=== PATIENT | female | born 1970 | race Caucasian/White ===

== ENCOUNTER 2020-06-18 17:12 | Outpatient (REF) | payer OTHER, SELFPAY | END 2020-06-18 17:13 | disposition home or self-care (01) | LOC: HO.LAB 17:12 | PROVIDERS: PCP Nurse Practitioner Family; Visit Provider Internal Medicine | DX: Z20.828 Contact with and (suspected) exposure to other viral communicable diseases (principal) | CPT/HCPCS: 87635 ==

== ENCOUNTER 2020-08-26 17:17 | Outpatient (REF) | payer OTHER, SELFPAY ==
--- NOTE | 2020-08-26 17:31 | XR_ITS ---
EXAMINATION: CHEST 2 VIEWS CLINICAL INFORMATION: Chest pain. COMPARISON: November 06, 2019. TECHNIQUE: PA and lateral views of the chest were obtained. FINDINGS: The cardiac silhouette is not enlarged. The mediastinal and hilar contours are unremarkable. There are neither pleural effusions nor pneumothoraces. There are no consolidations. The osseous structures are stable. XR/XR chest 2V IMPRESSION: No evidence for acute disease.
== END 2020-08-26 17:18 | disposition home or self-care (01) ==
LOC: HO.HMGCX 17:17
PROVIDERS: Visit Provider Nurse Practitioner Family
DX: R07.9 Chest pain, unspecified (principal)
CPT/HCPCS: 71046

== ENCOUNTER 2020-08-26 17:51 | Outpatient (REF) | payer OTHER, SELFPAY | END 2020-08-26 17:52 | disposition home or self-care (01) | LOC: HO.LAB 17:51 | PROVIDERS: Visit Provider Nurse Practitioner Family | DX: J32.9 Chronic sinusitis, unspecified (principal); Z20.828 Contact with and (suspected) exposure to other viral communicable diseases; R07.9 Chest pain, unspecified | CPT/HCPCS: 36415; U0003 ==

== ENCOUNTER 2020-08-27 12:54 | Outpatient (REF) | payer OTHER, SELFPAY ==
[2020-08-27 15:44] LABS: Alanine Aminotransferase 28 U/L (0-31); Albumin Level 4.7 g/dL (3.5-5.0); Alkaline Phosphatase 76 U/L (39-117); Anion Gap 20 (12-20); Aspartate Amino Transferase 16 U/L (5-31); Bilirubin Total 0.5 mg/dL (0.0-1.0); Blood Urea Nitrogen 17 mg/dL (9-16); Calcium 9.9 mg/dL (8.4-10.2); Carbon Dioxide 30 mmol/L (22-29); Chloride 102 mmol/L (96-108); Cholesterol 208 mg/dL; Estimated Glomerular Filt Rate > 60; Glucose Random 95 mg/dL (60-115); HDL Cholesterol 54 mg/dL; LDL Cholesterol Calculated 116 mg/dl; Potassium 4.2 mmol/l (3.3-5.1); Sodium 148 mmol/L (135-145); Total Protein 7.6 g/dL (6.5-8.0); Triglycerides 191 mg/dL
[2020-08-27 15:46] LABS: D Dimer < 200 NG/ML
[2020-08-27 16:05] LABS: Troponin-I High Sensitivity < 3.5 ng/L (<3.5-17.0)
== END 2020-08-27 12:55 | disposition home or self-care (01) ==
LOC: HO.LAB 12:54
PROVIDERS: PCP Nurse Practitioner Family; Visit Provider Nurse Practitioner Family
DX: R07.9 Chest pain, unspecified (principal); E78.5 Hyperlipidemia, unspecified; I25.10 Atherosclerotic heart disease of native coronary artery without angina pectoris; R94.31 Abnormal electrocardiogram [ECG] [EKG]; Z98.890 Other specified postprocedural states
CPT/HCPCS: 36415; 80053; 80061; 84484; 85379; 93005

== ENCOUNTER → 2020-09-17 08:03 | Outpatient (BNVA) | payer OTHER, SELFPAY | PROVIDERS: PCP Nurse Practitioner Family; Visit Provider Student in an Organized Health Care Education/Training Program ==

== ENCOUNTER 2020-09-26 08:05 | Outpatient (REF) | payer OTHER, SELFPAY ==
[2020-09-26 08:54] LABS: MANUAL DIFF FLAG NO
[2020-09-26 08:58] LABS: Basophils Absolute Auto 0.1 X10*3/uL (0.0-0.2); Basophils Percent Auto 0.8 % (0-2); Eosinophils Absolute Auto 0.4 X10*3/uL (0.0-0.4); Eosinophils Percent Auto 4.1 % (0-4); Hematocrit 46.3 % (37-47); Hemoglobin 15.3 g/dl (12.0-16.0); Imm Gran Abs Auto 0.02 X10*3/uL (0.00-0.03); Imm Gran Pct Auto 0.2 % (0.0-0.4); Lymphocytes Absolute Auto 3.2 X10*3/uL (1.2-4.9); Lymphocytes Percent Auto 34.3 % (20-40); Mean Corpuscular Hemoglobin 29.4 pg (27.0-33.0); Mean Platelet Volume 9.7 fL (9.4-12.3); Monocytes Absolute Auto 0.7 X10*3/uL (0.1-1.2); Monocytes Percent Auto 7.6 % (2-11); Platelet Count 360 X10*3/uL (160-400); Red Cell Distribution Width 13.2 % (11.0-16.0); White Blood Count 9.4 X10*3/uL (4.8-10.8)
[2020-09-26 09:11] LABS: Glucose Urine UA NEG (NEG); Leukocyte Esterase Urine NEG (NEG); Nitrite Urine NEG (NEG); Specific Gravity - Urine 1.025 (1.005-1.025); Urine Blood NEG (NEG); Urine Ketones NEG (NEG); Urine Protein NEG (NEG-TRACE)
[2020-09-26 09:12] LABS: Appearance Urine HAZY; Color Urine YELLOW
[2020-09-26 09:18] LABS: Alanine Aminotransferase 40 U/L (0-31); Albumin Level 4.4 g/dL (3.5-5.0); Alkaline Phosphatase 64 U/L (39-117); Anion Gap 14 (12-20); Aspartate Amino Transferase 26 U/L (5-31); Bilirubin Total 0.5 mg/dL (0.0-1.0); Blood Urea Nitrogen 18 mg/dL (9-16); C Reactive Protein 0.23 mg/dL (< or = 0.50); Calcium 9.4 mg/dL (8.4-10.2); Carbon Dioxide 29 mmol/L (22-29); Chloride 102 mmol/L (96-108); Cholesterol 161 mg/dL; Estimated Glomerular Filt Rate > 60; Glucose Fasting 108 mg/dL (60-99); HDL Cholesterol 48 mg/dL; LDL Cholesterol Calculated 83 mg/dl; Potassium 3.8 mmol/L (3.3-5.1); Sodium 141 mmol/L (135-145); Total Protein 6.9 g/dL (6.5-8.0); Triglycerides 154 mg/dL
[2020-09-26 09:29] LABS: Bacteria Urine 2+ /LPF; Mucus Urine 1+ /LPF; RBC Urine 0 /HPF (0); Squamous Epithelial Cell Urine 3+ /LPF; WBC Urine 0-2 /HPF (0-4)
[2020-09-26 09:43] LABS: TSH reflex Free T4 2.57 uIU/mL (0.32-4.0); Vitamin D 25-OH Total 27.2 ng/mL (>30)
[2020-09-26 09:44] LABS: Erythrocyte Sedimentation Rate 6 MM/HR (0-20)
[2020-09-27 14:47] LABS: Complement C3 116 mg/dL (83-193)
[2020-09-27 15:37] LABS: Anti DNA DS Antibody 9 IU/mL; SM/Ribonucleoprotein Ab <1.0 NEG AI (<1.0 NEG); Smith Protein <1.0 NEG AI (<1.0 NEG)
== END 2020-09-26 08:06 | disposition home or self-care (01) ==
LOC: HO.LAB 08:05
PROVIDERS: PCP Nurse Practitioner Family; Visit Provider Student in an Organized Health Care Education/Training Program
DX: Z00.00 Encounter for general adult medical examination without abnormal findings (principal); R76.8 Other specified abnormal immunological findings in serum; E55.9 Vitamin D deficiency, unspecified
CPT/HCPCS: 36415; 80053; 80061; 81001; 82306; 84443; 85025; 85652; 86140; 86160; 86225; 86235

== ENCOUNTER → 2020-09-30 14:59 | Outpatient (BNVA) | payer OTHER, SELFPAY | PROVIDERS: PCP Nurse Practitioner Family; Visit Provider Nurse Practitioner Family ==

== ENCOUNTER → 2020-11-13 16:26 | Outpatient (BNVA) | payer OTHER, SELFPAY | PROVIDERS: PCP Nurse Practitioner Family; Visit Provider Student in an Organized Health Care Education/Training Program ==

== ENCOUNTER 2021-01-01 14:53 | Outpatient (REF) | payer OTHER, SELFPAY ==
--- NOTE | ~2021-01-01 | XR_ITS ---
EXAMINATION: BILATERAL HAND X-RAY CLINICAL INFORMATION: Pain COMPARISON: Left wrist x-ray December 2015 TECHNIQUE: 3 views of each hand FINDINGS: Bone alignment is normal. No fracture or dislocation is seen. Joint spaces are normal. Soft tissues are normal. XR/XR hand LT min 3V IMPRESSION: Unremarkable exam.
--- NOTE | ~2021-01-01 | XR_ITS ---
EXAMINATION: BILATERAL HAND X-RAY CLINICAL INFORMATION: Pain COMPARISON: Left wrist x-ray December 2015 TECHNIQUE: 3 views of each hand FINDINGS: Bone alignment is normal. No fracture or dislocation is seen. Joint spaces are normal. Soft tissues are normal. XR/XR hand RT min 3V IMPRESSION: Unremarkable exam.
[2021-01-01 16:52] LABS: Alanine Aminotransferase 37 U/L (0-31); Albumin Level 4.6 g/dL (3.5-5.0); Alkaline Phosphatase 82 U/L (39-117); Anion Gap 15 (12-20); Aspartate Amino Transferase 20 U/L (5-31); Bilirubin Total 0.3 mg/dL (0.0-1.0); Blood Urea Nitrogen 14 mg/dL (9-16); Calcium 9.7 mg/dL (8.4-10.2); Carbon Dioxide 31 mmol/L (22-29); Chloride 96 mmol/L (96-108); Estimated Glomerular Filt Rate > 60; Glucose Random 70 mg/dL (60-115); Magnesium 2.1 mg/dL (1.6-2.6); Potassium 3.4 mmol/L (3.3-5.1); Sodium 139 mmol/L (135-145); Total Protein 7.4 g/dL (6.5-8.0)
[2021-01-01 17:13] LABS: TSH reflex Free T4 1.49 uIU/mL (0.32-4.0)
[2021-01-01 17:25] LABS: Folate 10.7 ng/mL (> or = 4.0); Vitamin B12 466 pg/mL (200-900)
== END 2021-01-01 14:54 | disposition home or self-care (01) ==
LOC: HO.HMGCX 14:53
PROVIDERS: PCP Nurse Practitioner Family; Visit Provider Student in an Organized Health Care Education/Training Program
DX: M25.50 Pain in unspecified joint (principal); R76.8 Other specified abnormal immunological findings in serum; R20.0 Anesthesia of skin; R20.2 Paresthesia of skin
CPT/HCPCS: 36415; 73130; 80053; 82607; 82746; 83735; 84443

== ENCOUNTER 2021-01-03 08:04 | Outpatient (REF) | payer OTHER, SELFPAY ==
[2021-01-03 11:13] LABS: MANUAL DIFF FLAG NO
[2021-01-03 11:23] LABS: Basophils Absolute Auto 0.1 X10*3/uL (0.0-0.2); Basophils Percent Auto 0.9 % (0-2); Eosinophils Absolute Auto 0.3 X10*3/uL (0.0-0.4); Eosinophils Percent Auto 3.2 % (0-4); Hematocrit 44.9 % (37-47); Imm Gran Abs Auto 0.04 X10*3/uL (0.00-0.03); Imm Gran Pct Auto 0.4 % (0.0-0.4); Lymphocytes Absolute Auto 3.1 X10*3/uL (1.2-4.9); Lymphocytes Percent Auto 31.8 % (20-40); Mean Corpuscular HGB Conc 33.4 g/dl (31.0-35.0); Mean Corpuscular Hemoglobin 30.1 pg (27.0-33.0); Mean Corpuscular Volume 90.2 fL (80-98); Monocytes Absolute Auto 0.8 X10*3/uL (0.1-1.2); Monocytes Percent Auto 7.7 % (2-11); Neutrophils Absolute Auto 5.5 X10*3/uL (2.0-8.3); Platelet Count 369 X10*3/uL (160-400); Red Blood Count 4.98 X10*6/uL (4.20-5.50); Red Cell Distribution Width 13.1 % (11.0-16.0); White Blood Count 9.8 X10*3/uL (4.8-10.8)
[2021-01-03 12:15] LABS: Alanine Aminotransferase 38 U/L (0-31); Albumin Level 4.3 g/dL (3.5-5.0); Alkaline Phosphatase 75 U/L (39-117); Anion Gap 15 (12-20); Aspartate Amino Transferase 24 U/L (5-31); Bilirubin Total 0.6 mg/dL (0.0-1.0); Blood Urea Nitrogen 19 mg/dL (9-16); Calcium 9.7 mg/dL (8.4-10.2); Carbon Dioxide 30 mmol/L (22-29); Chloride 100 mmol/L (96-108); Estimated Glomerular Filt Rate > 60; Glucose Random 112 mg/dL (60-115); Iron 132 mcg/dL (30-160); Percent Iron Saturation 34 % (15-50); Potassium 3.7 mmol/L (3.3-5.1); Sodium 141 mmol/L (135-145); Total Iron Binding Capacity 393 mcg/dL (228-428); Total Protein 6.8 g/dL (6.5-8.0); Unsaturated Iron Binding 261 ug/dL
[2021-01-03 12:17] LABS: Ferritin 107 ng/mL (10-250)
== END 2021-01-03 08:05 | disposition home or self-care (01) ==
LOC: HO.HMGCLDS 08:04
PROVIDERS: PCP Nurse Practitioner Family; Visit Provider Nurse Practitioner Family
DX: E61.1 Iron deficiency (principal); R20.0 Anesthesia of skin; R20.2 Paresthesia of skin
CPT/HCPCS: 36415; 80053; 82728; 83540; 85025

== ENCOUNTER 2021-01-09 07:27 | Outpatient (REF) | payer OTHER, SELFPAY | END 2021-01-09 07:28 | disposition home or self-care (01) | LOC: HO.HMGCLDS 07:27 | PROVIDERS: PCP Nurse Practitioner Family; Visit Provider Nurse Practitioner Family | DX: Z13.89 Encounter for screening for other disorder (principal) ==

== ENCOUNTER 2021-01-10 07:59 | Outpatient (REF) | payer OTHER, SELFPAY ==
[2021-01-10 08:48] LABS: Glucose Random 118 mg/dL (60-115)
[2021-01-13 14:52] LABS: Insulin Level Total 34.1 uIU/mL
[2021-01-15 05:02] LABS: Proinsulin 27.9 pmol/L (< OR = 18.8)
[2021-01-22 16:52] LABS: Chlorpropamide None Detected; Glimepiride None Detected; Glipizide None Detected; Glyburide None Detected; Nateglinide None Detected; Pioglitazone None Detected; Repaglinide None Detected; Rosiglitazone None Detected; Tolazamide None Detected; Tolbutamide None Detected
[2021-02-01 11:44] LABS: Beta-Hydroxybutyrate 0.7
== END 2021-01-10 08:00 | disposition home or self-care (01) ==
LOC: HO.LAB 07:59
PROVIDERS: PCP Nurse Practitioner Family; Visit Provider Nurse Practitioner Family
DX: E16.2 Hypoglycemia, unspecified (principal)
CPT/HCPCS: 36415; 80337; 82010; 82947; 83525; 84206; 84681

== ENCOUNTER 2021-01-14 14:41 | Outpatient (REF) | payer OTHER, SELFPAY ==
[2021-01-14 16:48] LABS: Estimated Average Glucose 126 mg/dL
== END 2021-01-14 14:42 | disposition home or self-care (01) ==
LOC: HO.HMGCLDS 14:41
PROVIDERS: PCP Nurse Practitioner Family; Visit Provider Nurse Practitioner Family
DX: E16.2 Hypoglycemia, unspecified (principal)
CPT/HCPCS: 36415; 83036

== ENCOUNTER → 2021-04-14 14:44 | Outpatient (BNVA) | payer OTHER, SELFPAY | PROVIDERS: PCP Nurse Practitioner Family; Visit Provider Internal Medicine Cardiovascular Disease ==

== ENCOUNTER 2021-05-07 07:36 | Outpatient (REF) | payer OTHER, SELFPAY ==
[2021-05-07 11:15] LABS: Appearance Urine HAZY; Color Urine YELLOW; Glucose Urine UA NEG (NEG); Leukocyte Esterase Urine NEG (NEG); Nitrite Urine NEG (NEG); Urine Blood NEG (NEG); Urine Ketones NEG (NEG); Urine Protein NEG (NEG-TRACE)
[2021-05-07 12:40] LABS: Alanine Aminotransferase 23 U/L (0-31); Albumin Level 4.4 g/dL (3.5-5.0); Alkaline Phosphatase 66 U/L (39-117); Anion Gap 16 (12-20); Aspartate Amino Transferase 17 U/L (5-31); Bilirubin Total 0.8 mg/dL (0.0-1.0); Blood Urea Nitrogen 16 mg/dL (9-16); Calcium 9.7 mg/dL (8.4-10.2); Carbon Dioxide 27 mmol/L (22-29); Chloride 101 mmol/L (96-108); Cholesterol 157 mg/dL; Estimated Glomerular Filt Rate > 60; Glucose Fasting 115 mg/dL (60-99); HDL Cholesterol 46 mg/dL; LDL Cholesterol Calculated 75 mg/dl; Potassium 3.8 mmol/L (3.3-5.1); Sodium 140 mmol/L (135-145); Total Protein 6.9 g/dL (6.5-8.0); Triglycerides 180 mg/dL
[2021-05-07 14:54] LABS: TSH reflex Free T4 2.07 uIU/mL (0.32-4.0)
[2021-05-08 13:36] LABS: CRP High Sensitivity 3.2 mg/L
[2021-05-15 21:32] LABS: Insulin Auto Antibody <0.4 U/mL (<0.4)
== END 2021-05-07 07:37 | disposition home or self-care (01) ==
LOC: HO.HMGCLDS 07:36
PROVIDERS: PCP Nurse Practitioner Family; Visit Provider Internal Medicine Cardiovascular Disease
DX: I25.10 Atherosclerotic heart disease of native coronary artery without angina pectoris (principal); E16.2 Hypoglycemia, unspecified; E78.5 Hyperlipidemia, unspecified
CPT/HCPCS: 36415; 80053; 80061; 81003; 84443; 86141; 86337

== ENCOUNTER → 2021-05-08 14:52 | Outpatient (BNVA) | payer OTHER, SELFPAY | PROVIDERS: PCP Nurse Practitioner Family; Visit Provider Internal Medicine ==

== ENCOUNTER 2021-08-15 08:47 | Outpatient (REF) | payer OTHER, SELFPAY ==
[2021-08-15 09:41] LABS: Anion Gap 11 (12-20); Blood Urea Nitrogen 16 mg/dL (9-16); Calcium 9.7 mg/dL (8.4-10.2); Carbon Dioxide 29 mmol/L (22-29); Chloride 101 mmol/L (96-108); Cholesterol 146 mg/dL; Estimated Glomerular Filt Rate > 60; Glucose Fasting 109 mg/dL (60-99); HDL Cholesterol 46 mg/dL; LDL Cholesterol Calculated 75 mg/dl; Potassium 3.4 mmol/L (3.3-5.1); Sodium 138 mmol/L (135-145); Triglycerides 126 mg/dL
[2021-08-15 10:02] LABS: Free T4 (Free Thyroxine) 0.94 ng/dL (0.71-1.85); Thyroid Stimulating Hormone 2.09 uIU/mL (0.32-4.0)
[2021-08-18 17:56] LABS: C Peptide 2.29 ng/mL (0.80-3.85)
[2021-08-18 20:51] LABS: Adrenocorticotropic Hormone 8 pg/mL (6-50)
[2021-08-18 21:51] LABS: DHEA Sulfate 56 mcg/dL (19-231)
[2021-08-19 01:31] LABS: CRP High Sensitivity 3.2 mg/L
[2021-08-22 09:32] LABS: Chlorpropamide None Detected; Glimepiride None Detected; Glipizide None Detected; Glyburide None Detected; Nateglinide None Detected; Pioglitazone None Detected; Repaglinide None Detected; Rosiglitazone None Detected; Tolazamide None Detected; Tolbutamide None Detected
[2021-08-23 00:12] LABS: Beta-Hydroxybutyrate 0.06 mmol/L
[2021-08-28 02:26] LABS: Insulin Auto Antibody <0.4 U/mL (<0.4)
[2021-08-28 04:46] LABS: Proinsulin 14.9 pmol/L (< OR = 18.8)
== END 2021-08-15 08:48 | disposition home or self-care (01) ==
LOC: HO.LAB 08:47
PROVIDERS: Internal Medicine Cardiovascular Disease; Visit Provider Internal Medicine
DX: E16.2 Hypoglycemia, unspecified (principal); I25.10 Atherosclerotic heart disease of native coronary artery without angina pectoris
CPT/HCPCS: 36415; 80048; 80061; 80337; 82010; 82024; 82627; 84206; 84439; 84443; 84681; 86141; 86337

== ENCOUNTER 2021-10-01 12:25 | Outpatient (REF) | payer OTHER, SELFPAY ==
--- NOTE | ~2021-10-01 | XR_ITS ---
EXAMINATION: XR CHEST CLINICAL INFORMATION: U07.1 - COVID-19 satisfactory. Diagnostic view is provided as diagnostic 09/30/2021 COMPARISON: Chest radiographs 08/26/2020, 11/06/2019, CT abdomen 05/25/2019 TECHNIQUE: 2 views of the chest were obtained. FINDINGS: The lungs are clear. The vascularity is normal. There is no airspace consolidation or groundglass opacity or effusion. The heart is within normal size. Tapering at the bilateral cardiophrenic angles is consistent with areolar tissue, similar to prior studies. The hilar and mediastinal contours and bony structures are unremarkable. XR/XR chest 2V IMPRESSION: Unremarkable examination.
[2021-10-01 13:46] LABS: MANUAL DIFF FLAG NO
[2021-10-01 13:59] LABS: Basophils Absolute Auto 0.1 X10*3/uL (0.0-0.2); Basophils Percent Auto 0.7 % (0-2); Eosinophils Absolute Auto 0.2 X10*3/uL (0.0-0.4); Eosinophils Percent Auto 1.1 % (0-4); Hematocrit 45.4 % (37.0-47.0); Hemoglobin 15.2 g/dl (12.0-16.0); Imm Gran Abs Auto 0.08 X10*3/uL (0.00-0.03); Imm Gran Pct Auto 0.6 % (0.0-0.4); Lymphocytes Absolute Auto 3.8 X10*3/uL (1.2-4.9); Lymphocytes Percent Auto 27.1 % (20-40); Mean Corpuscular HGB Conc 33.5 g/dl (31.0-35.0); Mean Corpuscular Hemoglobin 29.8 pg (27.0-33.0); Mean Platelet Volume 10.1 fL (9.4-12.3); Monocytes Absolute Auto 0.9 X10*3/uL (0.1-1.2); Monocytes Percent Auto 6.3 % (2-11); Neutrophils Absolute Auto 8.9 x10*3/uL (2.0-8.3); Neutrophils Percent Auto 64.2 % (45-73); Platelet Count 379 X10*3/uL (160-400); Red Cell Distribution Width 12.9 % (11.0-16.0); White Blood Count 13.8 X10*3/uL (4.8-10.8)
[2021-10-01 14:01] LABS: D Dimer High Sensitivity < 150 NG/ML
[2021-10-01 14:42] LABS: Alanine Aminotransferase 67 U/L (0-31); Albumin Level 4.5 g/dL (3.5-5.0); Alkaline Phosphatase 96 U/L (39-117); Anion Gap 13 (12-20); Aspartate Amino Transferase 33 U/L (5-31); Bilirubin Total 0.5 mg/dL (0.0-1.0); Carbon Dioxide 31 mmol/L (22-29); Chloride 99 mmol/L (96-108); Estimated Glomerular Filt Rate > 60; Glucose Random 115 mg/dL (60-115); Potassium 3.6 mmol/L (3.3-5.1); Sodium 139 mmol/L (135-145); Total Protein 7.5 g/dL (6.5-8.0)
[2021-10-01 15:24] LABS: Blood Urea Nitrogen 16 mg/dL (9-16); Calcium 10.1 mg/dL (8.4-10.2)
== END 2021-10-01 12:26 | disposition home or self-care (01) ==
LOC: HO.HMGCLDS 12:25
PROVIDERS: Visit Provider Nurse Practitioner Family
DX: U07.1 COVID-19 (principal); R79.82 Elevated C-reactive protein (CRP); E78.5 Hyperlipidemia, unspecified
CPT/HCPCS: 36415; 71046; 80053; 85025; 85379

== ENCOUNTER 2021-11-18 07:52 | Outpatient (REF) | payer OTHER, SELFPAY ==
[2021-11-18 12:07] LABS: Alanine Aminotransferase 38 U/L (0-31); Albumin Level 4.4 g/dL (3.5-5.0); Alkaline Phosphatase 71 U/L (39-117); Aspartate Amino Transferase 24 U/L (5-31); Bilirubin Direct 0.2 mg/dL (0.0-0.5); Bilirubin Total 0.4 mg/dL (0.0-1.0); Cholesterol 230 mg/dL; HDL Cholesterol 55 mg/dL; LDL Cholesterol Calculated 136 mg/dl; Total Protein 7.1 g/dL (6.5-8.0); Triglycerides 196 mg/dL
[2021-11-18 12:11] LABS: HBS Num1 1.32 mIU/mL (0-7.99); HBc Num1 0.07 S/CO (0.00-0.79); HBsAGNum1 0.19 S/CO (0.00-0.99); Hepatitis B Core Antibody Nonreactive (Nonreactive); Hepatitis B Surface Antigen Negative (Negative); ~Hepatitis B Surface Antibody NONREACTIVE (Nonreactive)
[2021-11-18 12:13] LABS: ~HepC Num1 0.11 S/CO (0.00-0.79); ~Hepatitis C Antibody Nonreactive (Nonreactive)
[2021-11-18 17:59] LABS: Urine Cytology See Pathology rpt
[2021-11-18 18:30] LABS: Appearance Urine CLEAR; Color Urine YELLOW; Glucose Urine UA NEG (NEG); Leukocyte Esterase Urine NEG (NEG); Nitrite Urine NEG (NEG); PH 7.5 (5.0-8.0); Urine Blood NEG (NEG); Urine Ketones NEG (NEG); Urine Protein NEG (NEG-TRACE)
[2021-11-18 19:03] LABS: Bacteria Urine TRACE /LPF; Mucus Urine 1+ /LPF; RBC Urine 0-2 /HPF (0); Squamous Epithelial Cell Urine 2+ /LPF; WBC Urine 0-2 /HPF (0-4)
[2021-11-19 05:08] LABS: Hepatitis A Antibody IgM 0.18 Index (0-0.79); ~Hepatitis A Antibody IgM Nonreactive (Nonreactive)
[2021-11-21 11:32] LABS: CRP High Sensitivity 2.9 mg/L
== END 2021-11-18 07:53 | disposition home or self-care (01) ==
LOC: HO.HMGCLDS 07:52
PROVIDERS: PCP Nurse Practitioner Family; Visit Provider Internal Medicine Cardiovascular Disease
DX: R74.8 Abnormal levels of other serum enzymes (principal); R79.82 Elevated C-reactive protein (CRP); E78.5 Hyperlipidemia, unspecified
CPT/HCPCS: 36415; 80061; 80076; 81001; 86141; 86704; 86706; 86709; 86803; 87086; 87340; 88112

== ENCOUNTER 2021-12-12 09:09 | Outpatient (REF) | payer OTHER, SELFPAY ==
--- NOTE | ~2021-12-12 | US_ITS ---
EXAMINATION: US ABDOMEN COMPLETE CLINICAL INFORMATION: Abnormal levels of other serum enzymes. COMPARISON: CT abdomen and pelvis 05/25/2019. Renal ultrasound 03/08/2015. Ultrasound abdomen 05/30/2012. TECHNIQUE: Real-time imaging of the abdominal viscera. FINDINGS: PANCREAS: The head and the body of the pancreas is homogeneous in echotexture. The tail is obscured by overlying gas. ABDOMINAL AORTA: The proximal, mid, and distal segments are normal in caliber. INFERIOR VENA CAVA: Visualized portions are normal. LIVER: The liver is normal in size. The liver contour is normal. There is an increase in echogenicity. No focal hepatic lesion. Hypodensity seen in the left hepatic lobe is not visualized by ultrasound. There is no intrahepatic biliary duct dilatation seen. GALLBLADDER: Surgically absent. COMMON BILE DUCT: Common bile duct is suboptimally visualized, however, it measures 0.4 cm in diameter. RIGHT KIDNEY: Normal. No hydronephrosis. No renal calculi or focal parenchymal lesions. The kidney measures 11.8 cm in maximum dimension. LEFT KIDNEY: Normal. No hydronephrosis. No renal calculi or focal parenchymal lesions. The kidney measures 13.2 cm in maximum dimension. SPLEEN: Normal. The spleen measures 10.9 cm in maximum dimension. FREE FLUID: None. US/US abdomen complete IMPRESSION: Unremarkable ultrasound abdomen exam. Hypodensity seen in the left hepatic lobe on CT 05/25/2019 is not visualized on ultrasound. Cholecystectomy.
== END 2021-12-12 09:10 | disposition home or self-care (01) ==
LOC: HO.US 09:09
PROVIDERS: Visit Provider Nurse Practitioner Family
DX: R74.8 Abnormal levels of other serum enzymes (principal)
CPT/HCPCS: 76700

== ENCOUNTER 2022-01-12 07:37 | Outpatient (REF) | payer OTHER, SELFPAY ==
[2022-01-12 08:44] LABS: Glucose Fasting 129 mg/dL (60-99)
[2022-01-12 08:47] LABS: Alanine Aminotransferase 25 U/L (0-31); Alkaline Phosphatase 63 U/L (39-117); Anion Gap 12 (12-20); Aspartate Amino Transferase 17 U/L (5-31); Bilirubin Total 0.4 mg/dL (0.0-1.0); Blood Urea Nitrogen 15 mg/dL (9-16); Calcium 9.6 mg/dL (8.4-10.2); Carbon Dioxide 29 mmol/L (22-29); Chloride 102 mmol/L (96-108); Estimated Glomerular Filt Rate > 60; Glucose Random 128 mg/dL (60-115); Potassium 3.6 mmol/L (3.3-5.1); Sodium 139 mmol/L (135-145); Total Protein 6.5 g/dL (6.5-8.0)
[2022-01-12 09:59] LABS: Glucose 1 Hour 228 mg/dL
[2022-01-12 10:38] LABS: Urine Cytology See Pathology rpt
[2022-01-12 10:46] LABS: Appearance Urine CLEAR; Color Urine YELLOW; Glucose Urine UA NEG (NEG); Leukocyte Esterase Urine NEG (NEG); Nitrite Urine NEG (NEG); Urine Blood NEG (NEG); Urine Ketones NEG (NEG); Urine Protein NEG (NEG-TRACE)
[2022-01-12 11:25] LABS: Glucose 2 Hour 175 mg/dL
[2022-01-12 11:34] LABS: RBC Urine 0 /HPF (0); Squamous Epithelial Cell Urine 1+ /LPF; WBC Urine 0-2 /HPF (0-4)
[2022-01-12 11:35] LABS: Bacteria Urine TRACE /LPF
[2022-01-12 12:21] LABS: Glucose 3 Hour 74 mg/dL
[2022-01-12 12:37] LABS: Glucose 4 Hour 69 mg/dL
== END 2022-01-12 07:38 | disposition home or self-care (01) ==
LOC: HO.LAB 07:37
PROVIDERS: Absent Provider Nurse Practitioner Family; PCP Nurse Practitioner Family; Visit Provider Internal Medicine
DX: R31.29 Other microscopic hematuria (principal); R60.9 Edema, unspecified; E16.2 Hypoglycemia, unspecified
CPT/HCPCS: 36415; 80053; 81001; 82952; 87086; 88112

== ENCOUNTER 2022-03-19 07:22 | Outpatient (REF) | payer OTHER, SELFPAY ==
[2022-03-19 07:48] LABS: MANUAL DIFF FLAG NO
[2022-03-19 07:51] LABS: Basophils Absolute Auto 0.1 X10*3/uL (0.0-0.2); Basophils Percent Auto 0.8 % (0-2); Eosinophils Absolute Auto 0.3 X10*3/uL (0.0-0.4); Eosinophils Percent Auto 2.2 % (0-4); Hematocrit 45.4 % (37.0-47.0); Hemoglobin 15.3 g/dl (12.0-16.0); Imm Gran Abs Auto 0.07 X10*3/uL (0.00-0.03); Imm Gran Pct Auto 0.6 % (0.0-0.4); Lymphocytes Absolute Auto 3.9 X10*3/uL (1.2-4.9); Lymphocytes Percent Auto 31.8 % (20-40); Mean Corpuscular HGB Conc 33.7 g/dl (31.0-35.0); Mean Corpuscular Hemoglobin 29.1 pg (27.0-33.0); Mean Corpuscular Volume 86.5 fL (80.0-98.0); Mean Platelet Volume 9.4 fL (9.4-12.3); Monocytes Absolute Auto 1.1 X10*3/uL (0.1-1.2); Monocytes Percent Auto 8.9 % (2-11); Neutrophils Absolute Auto 6.9 x10*3/uL (2.0-8.3); Neutrophils Percent Auto 55.7 % (45-73); Platelet Count 371 X10*3/uL (160-400); Red Blood Count 5.25 X10*6/uL (4.20-5.50); Red Cell Distribution Width 13.5 % (11.0-16.0); White Blood Count 12.3 X10*3/uL (4.8-10.8)
[2022-03-19 08:05] LABS: Glucose Fasting 120 mg/dL (60-99)
[2022-03-19 08:11] LABS: Appearance Urine CLEAR; Color Urine YELLOW; Glucose Urine UA NEG (NEG); Leukocyte Esterase Urine NEG (NEG); Nitrite Urine NEG (NEG); Specific Gravity - Urine 1.025 (1.005-1.025); Urine Blood NEG (NEG); Urine Ketones NEG (NEG); Urine Protein NEG (NEG-TRACE)
[2022-03-19 08:14] LABS: Alanine Aminotransferase 40 U/L (0-31); Albumin Level 4.6 g/dL (3.5-5.0); Alkaline Phosphatase 80 U/L (39-117); Anion Gap 14 (12-20); Aspartate Amino Transferase 26 U/L (5-31); Bilirubin Total 0.7 mg/dL (0.0-1.0); Blood Urea Nitrogen 14 mg/dL (9-16); Calcium 9.9 mg/dL (8.4-10.2); Carbon Dioxide 29 mmol/L (22-29); Chloride 99 mmol/L (96-108); Cholesterol 172 mg/dL; Estimated Glomerular Filt Rate > 60; Glucose Fasting 120 mg/dL (60-99); HDL Cholesterol 52 mg/dL; LDL Cholesterol Calculated 80 mg/dl; Potassium 3.9 mmol/L (3.3-5.1); Sodium 138 mmol/L (135-145); Total Protein 7.3 g/dL (6.5-8.0); Triglycerides 200 mg/dL
[2022-03-19 08:34] LABS: TSH reflex Free T4 3.73 uIU/mL (0.32-4.0)
[2022-03-19 08:45] LABS: Estimated Average Glucose 131 mg/dL; Hemoglobin A1c % 6.2 %
[2022-03-19 09:17] LABS: Glucose 1 Hour 261 mg/dL
[2022-03-19 10:22] LABS: Glucose 2 Hour 264 mg/dL
[2022-03-19 10:34] LABS: Cortisol Random 18.2 ug/dL
[2022-03-23 21:26] LABS: Adrenocorticotropic Hormone 17 pg/mL (6-50)
== END 2022-03-19 07:23 | disposition home or self-care (01) ==
LOC: HO.LAB 07:22
PROVIDERS: Absent Provider Internal Medicine; PCP Nurse Practitioner Family; Visit Provider Nurse Practitioner Family
DX: Z00.00 Encounter for general adult medical examination without abnormal findings (principal); E11.9 Type 2 diabetes mellitus without complications; E16.2 Hypoglycemia, unspecified; E78.5 Hyperlipidemia, unspecified
CPT/HCPCS: 36415; 80053; 80061; 81003; 82024; 82533; 83036; 84443; 85025

== ENCOUNTER 2022-04-01 13:20 | Outpatient (REF) | payer OTHER, SELFPAY ==
[2022-04-01 17:46] LABS: Alanine Aminotransferase 44 U/L (0-31); Albumin Level 4.5 g/dL (3.5-5.0); Alkaline Phosphatase 72 U/L (39-117); Anion Gap 15 (12-20); Aspartate Amino Transferase 27 U/L (5-31); Bilirubin Total 0.4 mg/dL (0.0-1.0); Blood Urea Nitrogen 14 mg/dL (9-16); Calcium 10.1 mg/dL (8.4-10.2); Carbon Dioxide 28 mmol/L (22-29); Chloride 100 mmol/L (96-108); Estimated Glomerular Filt Rate > 60; Glucose Random 105 mg/dL (60-115); Potassium 4.1 mmol/L (3.3-5.1); Sodium 139 mmol/L (135-145); Total Protein 7.3 g/dL (6.5-8.0)
== END 2022-04-01 13:21 | disposition home or self-care (01) ==
LOC: HO.HMGCLDS 13:20
PROVIDERS: PCP Nurse Practitioner Family; Visit Provider Internal Medicine
DX: E11.9 Type 2 diabetes mellitus without complications (principal)
CPT/HCPCS: 36415; 80053

== ENCOUNTER 2022-04-28 15:39 | Outpatient (REF) | payer OTHER, SELFPAY ==
[2022-04-28 16:54] LABS: Alanine Aminotransferase 44 U/L (0-31); Albumin Level 4.5 g/dL (3.5-5.0); Alkaline Phosphatase 74 U/L (39-117); Anion Gap 15 (12-20); Aspartate Amino Transferase 23 U/L (5-31); Bilirubin Total 0.3 mg/dL (0.0-1.0); Blood Urea Nitrogen 17 mg/dL (9-16); Calcium 9.9 mg/dL (8.4-10.2); Carbon Dioxide 29 mmol/L (22-29); Chloride 99 mmol/L (96-108); Cholesterol 173 mg/dL; Estimated Glomerular Filt Rate > 60; Glucose Random 97 mg/dL (60-115); HDL Cholesterol 45 mg/dL; LDL Cholesterol Calculated 75 mg/dl; Potassium 3.5 mmol/L (3.3-5.1); Sodium 139 mmol/L (135-145); Total Protein 7.5 g/dL (6.5-8.0); Triglycerides 269 mg/dL
== END 2022-04-28 15:40 | disposition home or self-care (01) ==
LOC: HO.LAB 15:39
PROVIDERS: Absent Provider Internal Medicine; PCP Nurse Practitioner Family; Visit Provider Nurse Practitioner Family
DX: R31.9 Hematuria, unspecified (principal)
CPT/HCPCS: 36415; 80053; 80061; 87086; 87088; 87186

== ENCOUNTER 2022-05-05 07:25 | Outpatient (REF) | payer OTHER, SELFPAY ==
[2022-05-05 11:44] LABS: Appearance Urine Clear; Color Urine Yellow; Glucose Urine UA Negative (Negative); Leukocyte Esterase Urine Negative (Negative); Nitrite Urine Negative (Negative); Urine Blood Negative (Negative); Urine Ketones Negative (Negative); Urine Protein Negative (Neg-Trace)
[2022-05-05 12:52] LABS: Bacteria Urine Trace (None Seen); Hyaline Casts Urine 0-2 /LPF (0-2); RBC Urine 0-2 /HPF (0-2); WBC Urine 0-5 /HPF (0-5)
== END 2022-05-05 07:26 | disposition home or self-care (01) ==
LOC: HO.HMGCLDS 07:25
PROVIDERS: PCP Nurse Practitioner Family; Visit Provider Nurse Practitioner Family
DX: R31.9 Hematuria, unspecified (principal); R10.9 Unspecified abdominal pain
CPT/HCPCS: 81001; 87086

== ENCOUNTER 2022-05-06 13:23 | Outpatient (REF) | payer OTHER, SELFPAY ==
--- NOTE | ~2022-05-06 | US_ITS ---
EXAMINATION: US RETROPERITONEAL COMPLETE (RENAL) CLINICAL INFORMATION: Hematuria. COMPARISON: Previous abdominal ultrasound November [address] of the abdomen and pelvis May 2019 TECHNIQUE: Real-time imaging of the kidneys and bladder. FINDINGS: RIGHT KIDNEY: 11 x 5 6 x 5.7 cm (SAG x AP x TRV). The kidney is normal in size, contour, and echogenicity. Renal cortical thickness is normal. There is very mild right hydronephrosis. No calculi or focal parenchymal lesions. LEFT KIDNEY: 13.1 x 5.6 x 5 cm (SAG x AP x TRV). The kidney is normal in size, contour, and echogenicity. Renal cortical thickness is normal. No calculi or focal parenchymal lesions. No hydronephrosis. BLADDER: Well distended and normal. Bilateral ureteral jets are demonstrated. Prevoid bladder volume is 669 mL. Postvoid bladder volume is 258 mL. US/US retroperitoneal comp IMPRESSION: Mild right hydronephrosis. Normal left kidney. Large 258 mL post void bladder residual..
[2022-05-06 16:36] LABS: MANUAL DIFF FLAG NO
[2022-05-06 16:43] LABS: Basophils Absolute Auto 0.1 X10*3/uL (0.0-0.2); Basophils Percent Auto 0.9 % (0-2); Eosinophils Absolute Auto 0.2 X10*3/uL (0.0-0.4); Eosinophils Percent Auto 1.9 % (0-4); Hematocrit 45.4 % (37.0-47.0); Hemoglobin 15.2 g/dl (12.0-16.0); Imm Gran Abs Auto 0.06 X10*3/uL (0.00-0.03); Imm Gran Pct Auto 0.5 % (0.0-0.4); Lymphocytes Absolute Auto 4.1 X10*3/uL (1.2-4.9); Lymphocytes Percent Auto 31.9 % (20-40); Mean Corpuscular HGB Conc 33.5 g/dl (31.0-35.0); Mean Corpuscular Hemoglobin 29.3 pg (27.0-33.0); Mean Corpuscular Volume 87.5 fL (80.0-98.0); Mean Platelet Volume 10.3 fL (9.4-12.3); Monocytes Percent Auto 8.1 % (2-11); Neutrophils Absolute Auto 7.3 x10*3/uL (2.0-8.3); Neutrophils Percent Auto 56.7 % (45-73); Platelet Count 385 X10*3/uL (160-400); Red Blood Count 5.19 X10*6/uL (4.20-5.50); Red Cell Distribution Width 12.9 % (11.0-16.0); White Blood Count 12.8 X10*3/uL (4.8-10.8)
[2022-05-06 17:01] LABS: Alanine Aminotransferase 35 U/L (0-31); Albumin Level 4.5 g/dL (3.5-5.0); Alkaline Phosphatase 76 U/L (39-117); Anion Gap 16 (12-20); Aspartate Amino Transferase 22 U/L (5-31); Bilirubin Total 0.2 mg/dL (0.0-1.0); Blood Urea Nitrogen 17 mg/dL (9-16); Calcium 10.1 mg/dL (8.4-10.2); Carbon Dioxide 31 mmol/L (22-29); Chloride 94 mmol/L (96-108); Estimated Glomerular Filt Rate > 60; Glucose Random 88 mg/dL (60-115); Potassium 3.3 mmol/L (3.3-5.1); Sodium 138 mmol/L (135-145); Total Protein 7.2 g/dL (6.5-8.0)
== END 2022-05-06 13:24 | disposition home or self-care (01) ==
LOC: HO.HMGCX 13:23
PROVIDERS: PCP Nurse Practitioner Family; Visit Provider Nurse Practitioner Family
DX: R10.9 Unspecified abdominal pain (principal); R31.9 Hematuria, unspecified
CPT/HCPCS: 36415; 76770; 80053; 85025

== ENCOUNTER → 2022-06-22 08:52 | Outpatient (BNVA) | payer OTHER, SELFPAY | PROVIDERS: PCP Nurse Practitioner Family; Visit Provider Internal Medicine | DX: E11.9 Type 2 diabetes mellitus without complications (principal); I10 Essential (primary) hypertension; E78.5 Hyperlipidemia, unspecified; Z90.49 Acquired absence of other specified parts of digestive tract; Z98.890 Other specified postprocedural states | CPT/HCPCS: 82947; 83036 ==

== ENCOUNTER 2022-07-01 07:38 | Outpatient (REF) | payer OTHER, SELFPAY ==
[2022-07-01 08:58] LABS: Cortisol Random < 1.0 ug/dL
[2022-07-03 08:22] LABS: Adrenocorticotropic Hormone 6 pg/mL (6-50)
[2022-07-15 11:07] LABS: Dexamethasone 570 ng/dL
== END 2022-07-01 07:39 | disposition home or self-care (01) ==
LOC: HO.LAB 07:38
PROVIDERS: PCP Nurse Practitioner Family; Visit Provider Internal Medicine
DX: E11.9 Type 2 diabetes mellitus without complications (principal)
CPT/HCPCS: 36415; 80299; 82024; 82533

== ENCOUNTER → 2022-08-04 15:24 | Outpatient (BNVA) | payer OTHER, SELFPAY | PROVIDERS: PCP Nurse Practitioner Family; Visit Provider Internal Medicine Cardiovascular Disease | DX: I25.10 Atherosclerotic heart disease of native coronary artery without angina pectoris (principal); R94.31 Abnormal electrocardiogram [ECG] [EKG]; E11.9 Type 2 diabetes mellitus without complications; E78.5 Hyperlipidemia, unspecified | CPT/HCPCS: 93005 ==

== ENCOUNTER → 2022-08-12 12:59 | Outpatient (REF) | payer OTHER, SELFPAY ==
--- NOTE | 2022-08-12 13:02 | CA_ITS ---
Transthoracic Echocardiogram Patient (Last, First, Middle): Moriah Awan, Gender: Female Date of : 1970 Age: 52 Procedure Date: 08/12/2022 Procedure Type: Transthoracic Echocardiogram Location: OP Height: 162.56 cm Weight: 87.09 kg BSA: 1.92 m2 Heart Rate: 69 bpm BP: 110 / 80 mmHg Social Services Manager: SHAHBAZ Referring MD: Brett Evans MD Revenue Collector: Brett Evans MD Symptoms: R94.31 - Abnormal electrocardiogram [ECG] [EKG] Study Quality: Fair ECG Rhythm: Sinus Conclusions: - 1. Normal LV systolic and diastolic function 2. Cardiac valvular Dopplers within normal limits 3. No gross pericardial effusion Findings Left Ventricle Normal left ventricular size, thickness, and systolic function. The visually estimated ejection fraction is between 55-60%. Spectral Doppler is indicative of a normal filling pattern. Right Ventricle Normal right ventricular cavity size and systolic function. Atria The left atrium is normal in size. Interatrial shunt cannot be excluded. The right atrium is normal in size. Aortic Valve The aortic valve structure and function is likely normal. There is no aortic valve stenosis. There is no aortic valve regurgitation. Mitral Valve There is mild anterior and posterior mitral leaflet thickening. There is no mitral valve regurgitation. There is no mitral valve stenosis. Pulmonic Valve The pulmonic valve was not well visualized. Tricuspid Valve Likely normal tricuspid valve structure and function. Tricuspid regurgitation envelope is inadequate for calculation of right ventricular systolic pressure. Normal right atrial pressure. Great Vessels The aorta was not well visualized. The pulmonary artery was not well visualized. Venous The inferior vena cava is normal in size and collapses greater than 50% with inspiration. Pericardium/Pleural There is no evidence of pericardial effusion. Recommendations, Care & Conclusions Recommend contrast in the future to improve endocardial definition. Measurements 2D Linear Measurements IVSd: 0.85 0.6-0.9/0.6-1.0 cm LVIDd: 4.00 3.9-5.3/4.2-5.9 cm LVIDd Index: 2.08 2.4-3.2/2.2-3.1 cm/m2 LVIDs: 2.64 2.0-3.6 cm LVPWd: 0.92 0.7-1.1 cm LA Diam: 2.90 2.7-3.8/3.0-4.0 cm LAIDs Index: 1.51 1.5-2.3 cm/m2 LV Mass: 133.12 67-162/88-224 g LV Mass Index: 69.33 43-95/49-115 g/m2 LVOT Diam: 1.90 3.0+(-)1.3 cm 2D Systolic Function EF 4C: 60.40 >55% EF 2C: 51.30 >55% EF BiP: 57.10 >55% Mitral Valve MV Pk E: 0.83 MV PK A: 0.77 MV Decel Time: 201.00 E/A: 1.10 E'Lateral: 7.80 E'Medial: 7.10 E/E' Med: 11.60 E/E' Lat: 10.60 PHT: 59.00 MVA PHT: 3.73 Decel Conway: 4.12 Aortic Valve AoV Pk Jeferson: 1.19 AoV Mn Jeferson: 0.82 AoV VTI: 0.22 AoV Pk Grad: 6.00 Aov Mn Grad: 3.00 JEFFERY Cont.VTI: 2.20 LVOT LVOT Pk Jeferson: 0.89 LVOT Mn Jeferson: 0.64 LVOT VTI: 0.17 LVOT Pk Grad: 3.00 LVOT Mn Grad: 2.00 LVOT Diam: 1.90 LVOT Area: 2.84 Diastolic Function MV Pk E: 0.83 MV Pk A: 0.77 E/A: 1.10 E'Medial: 7.10 E/E' Med: 11.60 E' Laterial: 7.80 E/E' Lat: 10.60 Right Ventricle TAPSE (mm): 17.40 TVS' Jeferson: 11.10 Tricuspid Valve RA Press: 3.00 Great Vessels Aorta Sinus of Valsalva: 3.20 2.0-3.5 cm Ao Asc: 2.90 2.1-3.4 cm Pulmonary Valve PV Pk Jeferson: 0.94 Peak PV Grad: 4.00 Updated in Other Vendor System with Status of Final Brett Evans MD electronically signed on 08/13/2022 8:53:56 AM with status of Final
== END ==
LOC: HO.CARD 12:59
PROVIDERS: PCP Nurse Practitioner Family; Visit Provider Internal Medicine Cardiovascular Disease
DX: R94.31 Abnormal electrocardiogram [ECG] [EKG] (principal)
CPT/HCPCS: 93306

== ENCOUNTER 2022-10-10 09:40 | Outpatient (REF) | payer OTHER, SELFPAY ==
[2022-10-10 09:56] LABS: MANUAL DIFF FLAG NO
[2022-10-10 10:39] LABS: Basophils Absolute Auto 0.1 X10*3/uL (0.0-0.2); Basophils Percent Auto 0.9 % (0-2); Eosinophils Absolute Auto 0.3 X10*3/uL (0.0-0.4); Eosinophils Percent Auto 2.4 % (0-4); Hematocrit 49.8 % (37.0-47.0); Hemoglobin 16.3 g/dl (12.0-16.0); Imm Gran Abs Auto 0.03 X10*3/uL (0.00-0.03); Imm Gran Pct Auto 0.3 % (0.0-0.4); Lymphocytes Absolute Auto 3.9 X10*3/uL (1.2-4.9); Mean Corpuscular HGB Conc 32.7 g/dl (31.0-35.0); Mean Corpuscular Hemoglobin 28.4 pg (27.0-33.0); Mean Corpuscular Volume 86.9 fL (80.0-98.0); Monocytes Absolute Auto 0.8 X10*3/uL (0.1-1.2); Monocytes Percent Auto 8.1 % (2-11); Neutrophils Absolute Auto 5.2 x10*3/uL (2.0-8.3); Neutrophils Percent Auto 50.3 % (45-73); Platelet Count 384 X10*3/uL (160-400); Red Blood Count 5.73 X10*6/uL (4.20-5.50); Red Cell Distribution Width 13.4 % (11.0-16.0); White Blood Count 10.3 X10*3/uL (4.8-10.8)
[2022-10-10 11:13] LABS: Appearance Urine Clear; Color Urine Yellow; Glucose Urine UA Negative (Negative); Leukocyte Esterase Urine Negative (Negative); Nitrite Urine Negative (Negative); PH 7.5 (5.0-9.0); Urine Blood Negative (Negative); Urine Ketones Negative (Negative); Urine Protein Negative (Neg-Trace)
[2022-10-10 11:17] LABS: Alanine Aminotransferase 47 U/L (0-31); Albumin Level 4.4 g/dL (3.5-5.0); Alkaline Phosphatase 83 U/L (39-117); Anion Gap 16 (12-20); Aspartate Amino Transferase 31 U/L (5-31); Bilirubin Total 0.8 mg/dL (0.0-1.0); Blood Urea Nitrogen 16 mg/dL (9-16); Calcium 10.1 mg/dL (8.4-10.2); Carbon Dioxide 28 mmol/L (22-29); Chloride 100 mmol/L (96-108); Cholesterol 179 mg/dL; Estimated Glomerular Filt Rate > 60; Glucose Fasting 101 mg/dL (60-99); HDL Cholesterol 52 mg/dL; LDL Cholesterol Calculated 94 mg/dl; Sodium 140 mmol/L (135-145); Total Protein 7.1 g/dL (6.5-8.0); Triglycerides 169 mg/dL
[2022-10-10 11:32] LABS: Vitamin D 25-OH Total 21.9 ng/mL (>30)
[2022-10-10 11:34] LABS: TSH reflex Free T4 2.17 uIU/mL (0.32-4.0)
[2022-10-10 12:42] LABS: Creatinine Urine 174.76 mg/dL; Microalbum/Creatinine Ratio Ur 9.1 ug/mg cr
== END 2022-10-10 09:41 | disposition home or self-care (01) ==
LOC: HO.LAB 09:40
PROVIDERS: Internal Medicine; PCP Nurse Practitioner Family; Visit Provider Nurse Practitioner Family
DX: M79.10 Myalgia, unspecified site (principal); E11.9 Type 2 diabetes mellitus without complications; Z86.39 Personal history of other endocrine, nutritional and metabolic disease
CPT/HCPCS: 36415; 80053; 80061; 81003; 82043; 82306; 82550; 84443; 85025

== ENCOUNTER 2023-01-30 10:31 | Outpatient (REF) | payer OTHER, SELFPAY ==
[2023-01-30 11:15] LABS: MANUAL DIFF FLAG NO
[2023-01-30 11:17] LABS: Basophils Absolute Auto 0.1 X10*3/uL (0.0-0.2); Basophils Percent Auto 0.8 % (0-2); Eosinophils Absolute Auto 0.2 X10*3/uL (0.0-0.4); Eosinophils Percent Auto 2.2 % (0-4); Hematocrit 47.8 % (37.0-47.0); Imm Gran Abs Auto 0.03 X10*3/uL (0.00-0.03); Imm Gran Pct Auto 0.3 % (0.0-0.4); Lymphocytes Absolute Auto 3.4 X10*3/uL (1.2-4.9); Lymphocytes Percent Auto 32.5 % (20-40); Mean Corpuscular HGB Conc 33.5 g/dl (31.0-35.0); Mean Corpuscular Hemoglobin 29.3 pg (27.0-33.0); Mean Corpuscular Volume 87.5 fL (80.0-98.0); Mean Platelet Volume 9.8 fL (9.4-12.3); Monocytes Absolute Auto 0.8 X10*3/uL (0.1-1.2); Monocytes Percent Auto 7.9 % (2-11); Neutrophils Absolute Auto 5.9 x10*3/uL (2.0-8.3); Neutrophils Percent Auto 56.3 % (45-73); Platelet Count 337 X10*3/uL (160-400); Red Blood Count 5.46 X10*6/uL (4.20-5.50); Red Cell Distribution Width 13.6 % (11.0-16.0); White Blood Count 10.5 X10*3/uL (4.8-10.8)
[2023-01-30 11:27] LABS: Estimated Average Glucose 105 mg/dL; Hemoglobin A1C 148.3352 umol/L; Hemoglobin A1c % 5.3 %
[2023-01-30 11:57] LABS: Erythrocyte Sedimentation Rate 3 MM/HR (0-20)
[2023-01-30 12:32] LABS: Alanine Aminotransferase 67 U/L (0-31); Alkaline Phosphatase 75 U/L (39-117); Anion Gap 13 (12-20); Aspartate Amino Transferase 35 U/L (5-31); Bilirubin Total 0.6 mg/dL (0.0-1.0); Blood Urea Nitrogen 20 mg/dL (9-16); Calcium 9.8 mg/dL (8.4-10.2); Carbon Dioxide 29 mmol/L (22-29); Chloride 102 mmol/L (96-108); Cholesterol 132 mg/dL; Estimated Glomerular Filt Rate > 60; Glucose Fasting 94 mg/dL (60-99); HDL Cholesterol 42 mg/dL; LDL Cholesterol Calculated 74 mg/dl; Lipase 29 U/L (8-78); Potassium 3.8 mmol/L (3.3-5.1); Rheumatoid Factor < 13.0 IU/mL (<15.0); Sodium 140 mmol/L (135-145); Total Protein 6.5 g/dL (6.5-8.0); Triglycerides 83 mg/dL
[2023-01-30 12:46] LABS: Vitamin D 25-OH Total 83.2 ng/mL (>30)
[2023-01-30 13:46] LABS: Appearance Urine Clear; Color Urine Yellow; Glucose Urine UA Negative (Negative); Leukocyte Esterase Urine Negative (Negative); Nitrite Urine Negative (Negative); Specific Gravity - Urine 1.025 (1.005-1.025); Urine Blood Negative (Negative); Urine Ketones Negative (Negative); Urine Protein Negative (Neg-Trace)
[2023-02-01 16:33] LABS: Cyclic Citrullinated Peptide <16 UNITS
[2023-02-03 22:58] LABS: Lyme Abs Screen <0.90 index
== END 2023-01-30 10:32 | disposition home or self-care (01) ==
LOC: HO.HMGCLDS 10:31
PROVIDERS: PCP Nurse Practitioner Family; Visit Provider Nurse Practitioner Family
DX: M25.50 Pain in unspecified joint (principal); M54.9 Dorsalgia, unspecified; R10.13 Epigastric pain; E11.9 Type 2 diabetes mellitus without complications; E55.9 Vitamin D deficiency, unspecified
CPT/HCPCS: 36415; 80053; 80061; 81003; 82306; 83036; 83690; 85025; 85652; 86140; 86200; 86431; 86617; 86618

== ENCOUNTER 2023-02-16 08:55 | Outpatient (REF) | payer OTHER, SELFPAY ==
--- NOTE | ~2023-02-16 | US_ITS ---
EXAMINATION: US ABDOMEN COMPLETE CLINICAL INFORMATION: Elevated LFTs, epigastric pain radiating to back. COMPARISON: Ultrasound retroperitoneal complete (renal) 05/06/2022. Ultrasound abdomen complete 12/12/2021. CT abdomen and pelvis with contrast 05/25/2019. TECHNIQUE: Real-time imaging of the abdominal viscera. FINDINGS: PANCREAS: Normal. ABDOMINAL AORTA: Proximal abdominal aorta is dilated measuring 2.5 x 2.9 cm. INFERIOR VENA CAVA: Visualized portions are normal. LIVER: Normal. The liver is normal in size. The liver contour is normal. Parenchymal echogenicity is normal. No focal hepatic lesion. There is no intrahepatic biliary duct dilatation seen. GALLBLADDER: Surgically absent. COMMON BILE DUCT: Normal in caliber measuring 0.7 cm in diameter. RIGHT KIDNEY: Normal. No hydronephrosis. No renal calculi or focal parenchymal lesions. The kidney measures 11.9 cm in maximum dimension. LEFT KIDNEY: Normal. No hydronephrosis. No renal calculi or focal parenchymal lesions. The kidney measures 12.7 cm in maximum dimension. SPLEEN: Normal. The spleen measures 9.2 cm in maximum dimension. FREE FLUID: None. 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 Recommend followup every 5 years. Reference: J Am Gustabo Radiol 2013; 10 (10): 789-794.
[2023-02-16 12:07] LABS: Alanine Aminotransferase 34 U/L (0-31); Albumin Level 4.2 g/dL (3.5-5.0); Alkaline Phosphatase 72 U/L (39-117); Aspartate Amino Transferase 18 U/L (5-31); Bilirubin Direct 0.2 mg/dL (0.0-0.5); Bilirubin Total 0.7 mg/dL (0.0-1.0); Total Protein 6.8 g/dL (6.5-8.0)
[2023-02-17 04:44] LABS: HBS Num1 0.15 mIU/mL (0-7.99); HBc Num1 0.06 S/CO (0.00-0.79); HBsAGNum1 0.51 S/CO (0.00-0.99); Hepatitis B Core Antibody Nonreactive (Nonreactive); Hepatitis B Surface Antigen Negative (Negative); ~HepC Num1 0.09 S/CO (0.00-0.79); ~Hepatitis A Antibody IgM Nonreactive (Nonreactive); ~Hepatitis B Surface Antibody NONREACTIVE (Nonreactive); ~Hepatitis C Antibody Nonreactive (Nonreactive)
== END 2023-02-16 08:56 | disposition home or self-care (01) ==
LOC: HO.HMGCX 08:55
PROVIDERS: PCP Nurse Practitioner Family; Visit Provider Nurse Practitioner Family
DX: R74.8 Abnormal levels of other serum enzymes (principal); R10.13 Epigastric pain; M54.9 Dorsalgia, unspecified
CPT/HCPCS: 36415; 76700; 80076; 86704; 86706; 86709; 86803; 87340

== ENCOUNTER 2023-02-25 10:22 | Outpatient (REF) | payer OTHER, SELFPAY | END 2023-02-25 10:23 | disposition home or self-care (01) | LOC: HO.HMGCLDS 10:22 | PROVIDERS: PCP Nurse Practitioner Family; Visit Provider Nurse Practitioner Family | DX: R74.8 Abnormal levels of other serum enzymes (principal) | CPT/HCPCS: 36415; 80076 ==

== ENCOUNTER 2023-05-31 15:29 | Outpatient (AMB) | payer OTHER, SELFPAY ==
[2023-05-31 15:36] VITALS: BP 138/80; PULSE 78; O2SAT 97; BMI 31.3
--- NOTE | 2023-05-31 15:36 | MHC.PC.OV ---
Vital Signs 05/31/23 15:36 05/31/23 16:32 Height 5 ft 4 in Weight 182 lb 8 oz BMI 31.3 BP 138/80 128/86 Blood Pressure Location Rt brachial Rt brachial Position Sitting Sitting Pulse 78 Pulse Source Pulse Oximeter Pulse Oximetry (%) 97 Oxygen Delivery Method Room Air Intake Visit Reasons: 4m follow up Allergies tramadol [TRAMADOL] Allergy (Severe, Verified 05/31/23 16:51) ITCHING adhesive tape [ADHESIVE TAPE] Allergy (Intermediate, Verified 05/31/23 16:51) RASH codeine [Codeine] Allergy (Unknown, Verified 05/31/23 16:51) CHEST PAIN diltiazem [Cardizem] Allergy (Unknown, Verified 05/31/23 16:51) Unknown ketorolac [From TORADOL] Allergy (Unknown, Verified 05/31/23 16:51) ITCHING morphine Allergy (Unknown, Verified 05/31/23 16:51) aggitation Medication List - Last Reconciled 05/31/23 by DONYA Duarte- amlodipine 2.5 mg PO DAILY 90 days blood sugar diagnostic (OneTouch Ultra Blue Test Strip) As directed blood sugar diagnostic (FreeStyle Lite Strips) 4x daily blood-glucose meter (FreeStyle Lite Meter kit) As directed cholecalciferol (vitamin D3) 1,250 mcg PO QWEEK 3 months dicyclomine 20 mg PO ONCE hydrochlorothiazide 50 mg PO DAILY 90 days lancets (FreeStyle Lancets) 4x daily lansoprazole 30 mg PO BID omega 9-yzf-sme-fish oil 1,000 mg (120 mg-180 mg) (Fish Oil) 1 cap PO DAILY rosuvastatin 20 mg PO DAILY tirzepatide (Mounjaro) 5 mg (0.5 mL) subcut QWEEK 30 days Tobacco use date assessed: 05/31/23 Dental Screening Dental Screen Date: 05/31/23 Did you have a dental visit in the last 12 months?: Yes Did you have a dental problem in the last 6 months where you did not have access to dental care?: No Was dental information given to patient?: Patient has dentist HPI 4m follow up HPI Details Pt is a diabetic, on a statin. Last A1C was 5.3, due for repeat. Microalbumin is up to date. Denies polyuria, polydipsia, and neuropathy. Pt denies any signs and symptoms of hypoglycemia and does know how to correct it. eye exam is scheduled. [facility] Medical History Abnormal EKG KIMMY positive Concussion HLD (hyperlipidemia) HLD (hyperlipidemia) Hypertension Right cervical radiculopathy Right shoulder tendonitis T2DM (type 2 diabetes mellitus) Transaminitis Surgical History History of hysterectomy History of suburethral sling procedure Hx of cardiac cath (~10/2017) Hx of cholecystectomy Family History Father CAD (coronary artery disease) PVD (peripheral vascular disease) HTN (hypertension) Hyperlipidemia Myocardial infarction Mother HTN (hypertension) CLL (chronic lymphocytic leukemia) Sister No problems noted. Son No problems noted. Social History Housing: House Alcohol intake: current Patient Tobacco Use Status: Never used Tobacco e-Cigarette/Vaping Use: Never Used Second Hand Smoke Exposure: No service: No Current occupational status: employed Current occupation: [employer] Current occupational exposures/hazards: Yes Cognitive needs: No Hearing needs: No Vision needs: No Questionnaire Thrive Questionnaire Date Thrive assessed: 09/24/22 JUDY-7 AMB Questionnaire JUDY-7 Date JUDY - 7 assessed: 09/24/22 Source: Developed by Drs. Coleman Manzo, Sofia Ruiz, Micheal Bhatia and colleagues, with an educational kelsy from [employer]. Review of Systems Const Reports as per HPI Physical exam (Primary Care) Vital Signs: Last Vital Signs Pulse 78 05/31/23 15:36 BP 138/80 05/31/23 15:36 Pulse Ox 97 05/31/23 15:36 Oxygen Delivery Method Room Air 05/31/23 15:36 BMI result Body Mass Index 31.3 Tobacco/Smoking Status: Tobacco use Status Tobacco use date assessed 05/31/23 05/31/23 15:42 Patient Tobacco Use Status Never used Tobacco 05/31/23 15:42 e-Cigarette/Vaping Use Never Used 05/31/23 15:42 Thrive Assessment: Date of Thrive Assessment Date Thrive assessed 09/24/22 05/31/23 15:42 Const General: cooperative Orientation/consciousness: patient oriented x3 Resp Effort & Inspection: normal respiratory effort Auscultation: clear to auscultation bilaterally Cardio Rate: regular rate Rhythm: regular rhythm Heart sounds: S1 normal heart sound present and S2 normal heart sound present Neuro General: patient oriented x3 Extrem Other: bilat feet: + sensation with use of monofilament, feet intact Psych Appearance: grossly normal Mental Status: mental status grossly normal Speech and movement: Normal speech and movement present Affect: normal affect Attitude: cooperative Thought process: Normal thought process present Thought content: Normal thought content present Insight: Good insight present (Psych) Judgement: Good judgement present (Psych) Assessment and Plan Assessment & Plan (1) T2DM (type 2 diabetes mellitus): Code(s): E11.9 - Type 2 diabetes mellitus without complications Plan: Labs ordered Plan The patient agreed to the use of a director medical science for this encounter. Scribed for KARIN Montejo by Wandy Willams director medical science, on 05/31/2023 at 15:55 EST Orders: Orders Comprehensive [place]. Panel Fast Today E11.9 - Type 2 diabetes mellitus without complications TSH reflex Free T4 Today E11.9 - Type 2 diabetes mellitus without complications UA CC w/rflx Micro + Cult Today E11.9 - Type 2 diabetes mellitus without complications Complete Blood Count Auto Diff Today E11.9 - Type 2 diabetes mellitus without complications Lipid Panel Today E11.9 - Type 2 diabetes mellitus without complications Hemoglobin A1c Today E11.9 - Type 2 diabetes mellitus without complications Microalbumin, Random (w Creat) Today E11.9 - Type 2 diabetes mellitus without complications Coding Level of Care Code Est Pt Level 3 (93226) Diagnoses T2DM (type 2 diabetes mellitus) E11.9
[2023-05-31 16:32] VITALS: BP 128/86
== END 2023-05-31 16:53 | disposition home or self-care (01) ==
PROVIDERS: PCP Nurse Practitioner Family; Visit Provider Nurse Practitioner Family
DX: E11.9 Type 2 diabetes mellitus without complications (principal)
CPT/HCPCS: 99213

== ENCOUNTER 2023-06-05 09:45 | Outpatient (REF) | payer OTHER, SELFPAY ==
[2023-06-05 10:14] LABS: MANUAL DIFF FLAG NO
[2023-06-05 10:20] LABS: Basophils Absolute Auto 0.1 X10*3/uL (0.0-0.2); Basophils Percent Auto 0.7 % (0-2); Eosinophils Absolute Auto 0.2 X10*3/uL (0.0-0.4); Eosinophils Percent Auto 2.4 % (0-4); Hematocrit 46.5 % (37.0-47.0); Hemoglobin 15.5 g/dl (12.0-16.0); Imm Gran Abs Auto 0.03 X10*3/uL (0.00-0.03); Imm Gran Pct Auto 0.3 % (0.0-0.4); Lymphocytes Absolute Auto 3.7 X10*3/uL (1.2-4.9); Mean Corpuscular HGB Conc 33.3 g/dl (31.0-35.0); Mean Corpuscular Hemoglobin 29.8 pg (27.0-33.0); Mean Corpuscular Volume 89.4 fL (80.0-98.0); Monocytes Absolute Auto 0.8 X10*3/uL (0.1-1.2); Monocytes Percent Auto 8.6 % (2-11); Neutrophils Absolute Auto 4.6 x10*3/uL (2.0-8.3); Platelet Count 338 X10*3/uL (160-400); Red Cell Distribution Width 12.9 % (11.0-16.0); White Blood Count 9.4 X10*3/uL (4.8-10.8)
[2023-06-05 10:41] LABS: Estimated Average Glucose 108 mg/dL; Hemoglobin A1c % 5.4 % (<6.0)
[2023-06-05 11:10] LABS: Alanine Aminotransferase 77 U/L (0-31); Albumin Level 4.4 g/dL (3.5-5.0); Alkaline Phosphatase 67 U/L (39-117); Anion Gap 12 (12-20); Aspartate Amino Transferase 36 U/L (5-31); Bilirubin Total 0.5 mg/dL (0.0-1.0); Blood Urea Nitrogen 23 mg/dL (9-16); Calcium 10.1 mg/dL (8.4-10.2); Carbon Dioxide 28 mmol/L (22-29); Chloride 105 mmol/L (96-108); Cholesterol 140 mg/dL (<200); Estimated Glomerular Filt Rate > 60; Glucose Fasting 96 mg/dL (60-99); HDL Cholesterol 52 mg/dL (>40); LDL Cholesterol Calculated 69 mg/dL (<100); Potassium 3.6 mmol/L (3.3-5.1); Sodium 141 mmol/L (135-145); Total Protein 7.2 g/dL (6.5-8.0); Triglycerides 95 mg/dL (<150)
[2023-06-05 11:15] LABS: Appearance Urine Clear; Color Urine Yellow; Glucose Urine UA Negative (Negative); Leukocyte Esterase Urine Negative (Negative); Nitrite Urine Negative (Negative); Specific Gravity - Urine >= 1.030 (1.005-1.025); Urine Blood Negative (Negative); Urine Ketones Negative (Negative); Urine Protein Negative (Neg-Trace)
[2023-06-05 11:49] LABS: Creatinine Urine 164.59 mg/dL
== END 2023-06-05 09:46 | disposition home or self-care (01) ==
LOC: HO.LAB 09:45
PROVIDERS: PCP Nurse Practitioner Family; Visit Provider Nurse Practitioner Family
DX: E11.9 Type 2 diabetes mellitus without complications (principal)
CPT/HCPCS: 36415; 80053; 80061; 81003; 82043; 82570; 83036; 84443; 85025

== ENCOUNTER 2023-06-07 15:31 | Outpatient (REF) | payer OTHER, SELFPAY ==
[2023-06-10 12:19] LABS: Smooth Muscle Antibody <20 U (<20)
== END 2023-06-07 15:32 | disposition home or self-care (01) ==
LOC: HO.LAB 15:31
PROVIDERS: PCP Nurse Practitioner Family; Visit Provider Nurse Practitioner Family
DX: R76.8 Other specified abnormal immunological findings in serum (principal); R74.8 Abnormal levels of other serum enzymes; M25.50 Pain in unspecified joint
CPT/HCPCS: 36415; 86015

== ENCOUNTER 2023-06-28 13:47 | Outpatient (AMB) | payer OTHER, SELFPAY ==
--- NOTE | 2023-06-28 13:59 | A.OFFVIS_ITS ---
Intake Vital Signs 06/28/23 14:00 Height 5 ft 4 in Weight 183 lb 3.266 oz BMI 31.4 BP 140/70 H Blood Pressure Location Lt brachial Position Sitting Intake Visit Reasons: abnormal lab/Joint Pain Intake Note: Patient presents today to follow up on +KIMMY and joint pain. Last seen by us in October,. 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 Accompanied by: Self / Same As Patient Allergies tramadol [TRAMADOL] Allergy (Severe, Verified 06/28/23 14:02) ITCHING adhesive tape [ADHESIVE TAPE] Allergy (Intermediate, Verified 06/28/23 14:02) RASH codeine [Codeine] Allergy (Unknown, Verified 06/28/23 14:02) CHEST PAIN diltiazem [Cardizem] Allergy (Unknown, Verified 06/28/23 14:02) Unknown ketorolac [From TORADOL] Allergy (Unknown, Verified 06/28/23 14:02) ITCHING morphine Allergy (Unknown, Verified 06/28/23 14:02) aggitation Medication List - Last Reconciled 06/28/23 by Reyes Jensen MD amlodipine 2.5 mg PO DAILY 90 days blood sugar diagnostic (OneTouch Ultra Blue Test Strip) As directed blood sugar diagnostic (FreeStyle Lite Strips) 4x daily blood-glucose meter (FreeStyle Lite Meter kit) As directed cholecalciferol (vitamin D3) 1,250 mcg PO QWEEK 3 months dicyclomine 20 mg PO ONCE estradiol 0.01%(0.1mg/gram) vaginal hydrochlorothiazide 50 mg PO DAILY 90 days lancets (FreeStyle Lancets) 4x daily lansoprazole 30 mg PO BID omega 9-frd-epz-fish oil 1,000 mg (120 mg-180 mg) (Fish Oil) 1 cap PO DAILY rosuvastatin 20 mg PO DAILY tirzepatide (Mounjaro) 5 mg (0.5 mL) subcut QWEEK 30 days HPI HPI Comments History of Present Illness Details The patient presents for evaluation of widespread pains. She has a known positive KIMMY and anti double-stranded DNA from a few years ago. She feels there are still problems with muscle, bone, joint, and skin pains. These tend to migrate around her body. 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 She is on some hydrochlorothiazide for some ankle edema that comes and goes. She has not had any recent problems with sun sensitivity, skin rashes, oral ulcers, chest pain or abdominal pain. She does have a history of esophageal spasm which can give her neck and chest pain. [facility] Medical History (Updated 06/28/23 @ 17:08 by Reyes Jensen MD) HLD (hyperlipidemia) Hypertension Transaminitis T2DM (type 2 diabetes mellitus) Concussion KIMMY positive Abnormal EKG HLD (hyperlipidemia) Right cervical radiculopathy Right shoulder tendonitis Surgical History History of suburethral sling procedure Hx of cardiac cath (~10/2017) History of hysterectomy Hx of cholecystectomy Family History Father CAD (coronary artery disease) PVD (peripheral vascular disease) HTN (hypertension) Hyperlipidemia Myocardial infarction Mother HTN (hypertension) CLL (chronic lymphocytic leukemia) Sister No problems noted. Son No problems noted. Social History (Updated 06/28/23 @ 14:03 by FERNANDEZ Zapata) Housing: House Alcohol intake: current Alcohol intake frequency: holidays/special occasions only Patient Tobacco Use Status: Never used Tobacco e-Cigarette/Vaping Use: Never Used Second Hand Smoke Exposure: No service: No Current occupational status: employed Current occupation: [email or web address] Current occupational exposures/hazards: Yes Cognitive needs: No Hearing needs: No Vision needs: No Review of Systems Const Details: Low energy at times. Some intentional weight loss. Negative for appetite change, fever, chills, malaise and fatigue Eyes Details: Occasional headaches. Negative for vision change, dry eyes, and dizziness ENT Details: Negative for hearing change, tinnitus, oral ulcer, nose bleeds and oral dryness. Card Details: Negative chest pain, edema and syncope Resp Details: Negative for SOB, cough and wheezing GI Details: Negative indigestion/heartburn, nausea, abdominal pain, bowel changes, diarrhea, constipation and bloody stool. Details: Negative for dysuria, hematuria, nocturia, decreased force/flow and genital discharge Skin/Breast Details: Negative for itching, rash, hives, Raynaud's symptoms, sun sensitivity, and skin cancer Neuro Details: Negative for epilepsy, palsy, stroke, changes in speech, tingling and weakness Psych Details: Negative for anxiety, depression and stress Endo Details: Negative for polyuria and polydypsia Augusto/Lymph Details: Negative for excessive bruising or bleeding. Physical Exam Vital Signs: Last Vital Signs BP 140/70 H 06/28/23 14:00 BMI result Body Mass Index 31.4 APPEARANCE: Patient in no acute distress EYES no redness, pupils equal and reactive to light, eyelids normal. No temporal artery tenderness, redness or swelling. EARS: External ear normal, canal clear and tympanic membrane normal. NOSE/SINUS: Airflow through both nares, no nasal discharge, no bleeding THROAT: Oral mucosa moist, no ulcerations NECK: No thyromegaly or masses, no adenopathy, trachea midline. HEART: Regulrar rhythm, S1-S2 heard, no murmurs, rubs or gallops. LUNG: Clear to percussion and auscultation ABD: Normal bowel sounds, no organomegaly, masses or tenderness. EXTREMITIES: No edema, no calf tenderness, normal peripheral pulses. NEURO: Oriented and alert x3. No focal weakness. Reflexes symmetric. Gait normal. SKIN: No inflammatory or neoplastic lesions. Normal color and turgor JOINT EXAM:?? Cervical Spine:.? Full range of motion without pain; mild cervical muscle tenderness. Thoracic Spine:.? No scoliosis.? No tenderness on palpation. Lumbar Spine:.? Alignment normal.? Slight pain with flexion at 75 degrees. no tenderness. Chest Wall:.? No tenderness, swelling, increased warmth or erythema. Hands:.? Normal pain-free range of motion without tenderness, swelling, increased warmth or erythema. Able to make a full fist and has a good glass washer strength. Wrists:.? Normal pain-free range of motion without tenderness, swelling, increas ed warmth or erythema. Elbows:. Normal pain-free range of motion with lateral epicondylar tenderness. Over the joint spaces there is no tenderness, swelling, increased warmth or erythema. Shoulders:.?? Full range of motion without pain. No tenderness, weakness, swelling, increased warmth or erythema. Hips:.? Full range of motion without pain. Hip bursa:.? No tenderness. Knees:.?? Normal pain-free range of motion with mild patellofemoral crepitus. There is no effusion, tenderness, swelling, increased warmth or erythema.? Ankles:.? Normal pain-free range of motion without tenderness, swelling, increased warmth or erythema. Feet:.? Normal pain-free range of motion without tenderness, swelling, increased warmth or erythema. Tender points:.? Mild tenderness to digital palpation at the occiput, trapezius, second ribs, lateral epicondyles, left knee, right greater trochanter area ? Results Reviewed Results Reviewed: Laboratory Tests 01/30/23 06/05/23 06/05/23 10:40 10:11 10:11 WBC 9.4 Hgb 15.5 ESR 3 Creatinine 0.72 AST 36 H ALT 77 H Alkaline Phosphatase 67 TSH 2.10 Laboratory Tests 02/09/20 09/26/20 01/30/23 09:12 08:25 10:40 Rheumatoid Factor < 13.0 Cycl Citrul Peptide IgG <16 KIMMY Titer 1:40 H Sm (Sen) Antibody <1.0 NEG SM/ECOMMERCE MANAGER IgG Antibody <1.0 NEG Double Strand DNA Ab 9 H Anti-Smooth Muscle Ab Complement C3 116 Complement C4 18 06/07/23 15:56 Rheumatoid Factor Cycl Citrul Peptide IgG KIMMY Titer Sm (Sen) Antibody SM/ECOMMERCE MANAGER IgG Antibody Double Strand DNA Ab Anti-Smooth Muscle Ab <20 Complement C3 Complement C4 Assessment & Plan Assessment & Plan (1) Muscle pain: Code(s): M79.10 - Myalgia, unspecified site (2) KIMMY positive: Code(s): R76.8 - Other specified abnormal immunological findings in serum Plan The patient has had rather longstanding muscle and joint pains. On exam today I do not see signs of an active inflammatory arthritis. There are some tender points so I think most likely this is some fibromyalgia. At present I do not think she needs additional treatment for the fibromyalgia. 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 The KIMMY is positive and the anti double-stranded DNA has been equivocal for a number of years. I do not think there is enough here to label this as lupus. She did have rheumatoid factor, CCP antibodies, Sjogren's antibodies that were negative as well. I will repeat some of her studies looking for other autoantibodies. I told her that taking acetaminophen would be the safest thing she could do up to 2 g a day would seem to be safe. She has minimal elevation of LFTs likely related to fatty liver. I do not think the acetaminophen would be a problem for that. We will get back to her with the results of her studies. Orders: Orders Erythrocyte Sedimentation Rate Today R76.8 - Other specified abnormal immunological findings in serum Complement C4 Today R76.8 - Other specified abnormal immunological findings in serum Anti DNA DS Antibody Today R76.8 - Other specified abnormal immunological findings in serum Complement C3 Today R76.8 - Other specified abnormal immunological findings in serum Sjogren's Antibodies Today R76.8 - Other specified abnormal immunological findings in serum Creatine Kinase Total Today M79.10 - Myalgia, unspecified site, R76.8 - Other specified abnormal immunological findings in serum Coding Level of Care Code Est Pt Level 4 (51674) Diagnoses Muscle pain M79.10 KIMMY positive R76.8
[2023-06-28 14:00] VITALS: BP 140/70; BMI 31.4
== END 2023-06-28 14:45 | disposition home or self-care (01) ==
PROVIDERS: PCP Nurse Practitioner Family; Visit Provider Internal Medicine Rheumatology
DX: M79.10 Myalgia, unspecified site (principal); R76.8 Other specified abnormal immunological findings in serum
CPT/HCPCS: 99214

== ENCOUNTER 2023-06-28 13:47 | Outpatient (REF) | payer OTHER, SELFPAY ==
[2023-06-28 16:11] LABS: Erythrocyte Sedimentation Rate 5 MM/HR (0-20)
[2023-06-29 21:48] LABS: Anti DNA DS Antibody 9 IU/mL; Antibody to SS-A Antigen <1.0 NEG AI (<1.0 NEG); Antibody to SS-B Antigen <1.0 NEG AI (<1.0 NEG)
[2023-06-29 23:09] LABS: Complement C3 148 mg/dL (83-193)
== END 2023-06-28 13:48 | disposition home or self-care (01) ==
LOC: HO.LAB 13:47
PROVIDERS: PCP Nurse Practitioner Family; Visit Provider Internal Medicine Rheumatology
DX: M79.10 Myalgia, unspecified site (principal); R76.8 Other specified abnormal immunological findings in serum
CPT/HCPCS: 36415; 82550; 85652; 86160; 86225; 86235

== ENCOUNTER 2023-08-05 15:11 | Outpatient (AMB) | payer OTHER, SELFPAY ==
--- NOTE | 2023-08-05 15:17 | A.OFFVIS_ITS ---
Intake Vital Signs 08/05/23 15:19 Height 5 ft 4 in Weight 182 lb 15.739 oz BMI 31.4 BP 120/72 Blood Pressure Location Lt brachial Position Sitting Pulse 71 Intake Visit Reasons: 1 yr f/up Intake Note: 1 year follow-up with ekg feeling good Paper Finisher Required: No Allergies tramadol [TRAMADOL] Allergy (Severe, Verified 06/28/23 14:02) ITCHING adhesive tape [ADHESIVE TAPE] Allergy (Intermediate, Verified 06/28/23 14:02) RASH codeine [Codeine] Allergy (Unknown, Verified 06/28/23 14:02) CHEST PAIN diltiazem [Cardizem] Allergy (Unknown, Verified 06/28/23 14:02) Unknown ketorolac [From TORADOL] Allergy (Unknown, Verified 06/28/23 14:02) ITCHING morphine Allergy (Unknown, Verified 06/28/23 14:02) aggitation Medication List - Last Reconciled 08/05/23 by Brett Evans MD amlodipine 2.5 mg PO DAILY 90 days blood sugar diagnostic (b-datumTouch Ultra Blue Test Strip) As directed blood sugar diagnostic (FreeStyle Lite Strips) 4x daily blood-glucose meter (FreeStyle Lite Meter kit) As directed cholecalciferol (vitamin D3) 1,250 mcg PO QWEEK 3 months dicyclomine 20 mg PO ONCE estradiol 0.01%(0.1mg/gram) vaginal hydrochlorothiazide 50 mg PO DAILY 90 days lancets (FreeStyle Lancets) 4x daily lansoprazole 30 mg PO BID omega 8-zno-lnc-fish oil 1,000 mg (120 mg-180 mg) (Fish Oil) 1 cap PO DAILY rosuvastatin 20 mg PO DAILY tirzepatide (Mounjaro) 5 mg (0.5 mL) subcut QWEEK 30 days HPI HPI Comments History of Present Illness Details Moriah comes for follow-up. She has been doing very well from cardiac perspective. She has participated in diet modification and has lost about 40 lb. She feels well. Denies any exertional chest pain or shortness of breath. Lightheadedness, syncope. No prolonged palpitations. Takes all her medications. LDL is well optimized. Triglycerides have also improved [facility] Medical History HLD (hyperlipidemia) Hypertension Transaminitis T2DM (type 2 diabetes mellitus) Concussion KIMMY positive Abnormal EKG HLD (hyperlipidemia) Right cervical radiculopathy Right shoulder tendonitis Surgical History History of suburethral sling procedure Hx of cardiac cath (~10/2017) History of hysterectomy Hx of cholecystectomy Family History Father CAD (coronary artery disease) PVD (peripheral vascular disease) HTN (hypertension) Hyperlipidemia Myocardial infarction Mother HTN (hypertension) CLL (chronic lymphocytic leukemia) Sister No problems noted. Son No problems noted. Social History Housing: House Alcohol intake: current Alcohol intake frequency: holidays/special occasions only Patient Tobacco Use Status: Never used Tobacco e-Cigarette/Vaping Use: Never Used Second Hand Smoke Exposure: No service: No Current occupational status: employed Current occupation: [employer] Current occupational exposures/hazards: Yes Cognitive needs: No Hearing needs: No Vision needs: No Review of Systems Const Denies chills, Denies fatigue, Denies fever(s), Denies frequent falls, Denies weakness, Denies weight gain and Denies weight loss ENT Denies dizziness Card Denies chest pain, Denies leg edema, Denies lightheadedness, Denies palpitations, Denies dyspnea, Denies dyspnea on exertion, Denies orthopnea and Denies other (loss of consciousness) Resp Denies cough, Denies dyspnea and Denies dyspnea on exertion GI Denies hematochezia and Denies change in stool character Musc Denies abnormal gait, Denies muscle weakness, Denies numbness, Denies radiating pain into limb and Denies tingling Neuro Denies abnormal gait, Denies dizziness, Denies frequent falls, Denies numbness, Denies tingling and Denies weakness Endo Denies fatigue and Denies palpitations Physical Exam Vital Signs: Last Vital Signs Pulse 71 08/05/23 15:19 BP 120/72 08/05/23 15:19 BMI result Body Mass Index 31.4 Const General: cooperative, healthy appearing, comfortable and no acute distress Orientation/consciousness: patient oriented x3 Eyes Sclerae: sclerae normal Neck Neck: Yes normal visual inspection and Yes no JVD Carotids: normal carotid upstroke Chest Chest palpation & inspection: normal inspection of the chest Resp Effort & Inspection: normal respiratory effort Auscultation: clear to auscultation bilaterally, no crackles, no rales, no rhonchi and no wheezes Cardio Jugular venous distension: no JVD Rate: regular rate Rhythm: regular rhythm Heart sounds: S1 normal heart sound present, S2 normal heart sound present, no gallops, no murmurs and no rubs Peripheral pulses: Peripheral pulses 2+ throughout GI Inspection: Yes normal to inspection Skin General skin exam: no rashes or lesions noted Neuro General: patient oriented x3 Extrem General: Yes normal to inspection, No no pedal edema and No calf tenderness Office Procedures EKG Details: EKG shows low-voltage QRS with normal sinus rhythm with inferior infarct poor R- wave progression, unchanged from last year's EKG [id number], Complete Assessment & Plan Assessment & Plan (1) CAD (coronary artery disease): Comment: mild nonobstructive Code(s): I25.10 - Atherosclerotic heart disease of cahto coronary artery without angina pectoris Plan: Nonobstructive CAD in this middle-aged woman with also evidence of mild abdominal aortic aneurysm with multiple risk factors. She has done extremely well with lifestyle modification with improvement in her lipid panel as well as diabetes control. She is very happy. She has no exertional symptoms. No further workup is indicated. Continue aggressive medical therapy including current statin therapy with target goal LDL less than 70 mg/dL. Continue low- dose aspirin therapy. Blood pressure is well optimized. Advised to monitor blood pressure at home maintain a log. Goal blood pressure less than 130/84. Low-salt diet was discussed. Continue aggressive diabetes management, being pursue through office. Will follow up in the clinic in 1 year's time, sooner. Thank you for allowing me to partake in her care Coding Level of Care Code Est Pt Level 4 (83137) Diagnoses CAD (coronary artery disease) I25.10 CPT Codes EKG - CPT: 88651-[id number], Complete ([id number])
[2023-08-05 15:19] VITALS: BP 120/72; PULSE 71; BMI 31.4
== END 2023-08-05 15:47 | disposition home or self-care (01) ==
PROVIDERS: Visit Provider Internal Medicine Cardiovascular Disease
DX: I25.10 Atherosclerotic heart disease of native coronary artery without angina pectoris (principal)
CPT/HCPCS: 93010; 99214

== ENCOUNTER → 2023-08-05 15:11 | Outpatient (BNVA) | payer OTHER, SELFPAY | PROVIDERS: Visit Provider Internal Medicine Cardiovascular Disease | DX: I25.10 Atherosclerotic heart disease of native coronary artery without angina pectoris (principal); Z79.82 Long term (current) use of aspirin; Z79.899 Other long term (current) drug therapy | CPT/HCPCS: 93005 ==

== ENCOUNTER 2023-09-29 15:26 | Outpatient (AMB) | payer OTHER, SELFPAY ==
--- NOTE | 2023-09-29 15:32 | A.OFFPC_ITS ---
Vital Signs 09/29/23 15:33 Height 5 ft 4 in Weight 187 lb 6 oz BMI 32.2 BP 122/86 Blood Pressure Location Rt brachial Position Sitting Pulse 77 Pulse Source Pulse Oximeter Pulse Oximetry (%) 96 Oxygen Delivery Method Room Air Intake Visit Reasons: Annual PE Intake Note: Pt is here for her Annual PE Allergies tramadol [TRAMADOL] Allergy (Severe, Verified 09/29/23 15:36) ITCHING adhesive tape [ADHESIVE TAPE] Allergy (Intermediate, Verified 09/29/23 15:36) RASH codeine [Codeine] Allergy (Unknown, Verified 09/29/23 15:36) CHEST PAIN diltiazem [Cardizem] Allergy (Unknown, Verified 09/29/23 15:36) Unknown ketorolac [From TORADOL] Allergy (Unknown, Verified 09/29/23 15:36) ITCHING morphine Allergy (Unknown, Verified 09/29/23 15:36) aggitation Medication List - Last Reconciled 09/29/23 by CHESTER DuarteP- amlodipine 2.5 mg PO DAILY 90 days blood sugar diagnostic (ChalkboardTouch Ultra Blue Test Strip) As directed blood sugar diagnostic (FreeStyle Lite Strips) 4x daily blood-glucose meter (FreeStyle Lite Meter kit) As directed cholecalciferol (vitamin D3) 1,250 mcg PO QWEEK 3 months dicyclomine 20 mg PO ONCE estradiol 0.01%(0.1mg/gram) vaginal hydrochlorothiazide 50 mg PO DAILY 90 days lancets (FreeStyle Lancets) 4x daily lansoprazole 30 mg PO BID omega 0-ped-xjw-fish oil 1,000 mg (120 mg-180 mg) (Fish Oil) 1 cap PO DAILY rosuvastatin 20 mg PO DAILY tirzepatide (Mounjaro) 5 mg (0.5 mL) subcut QWEEK 30 days Tobacco use date assessed: 09/29/23 Dental Screening Dental Screen Date: 09/29/23 Did you have a dental visit in the last 12 months?: Yes Did you have a dental problem in the last 6 months where you did not have access to dental care?: No Was dental information given to patient?: Patient has dentist HPI Annual PE HPI Details Pt is here for a PE. Will order labs. Due for colon screen, will refer to GI. Mammo is up to date according to pt. 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 Pt is a diabetic, on a statin. Due for A1C, will order. Microalbumin is up to date. Denies polyuria, polydipsia, and neuropathy. Pt denies any signs and symptoms of hypoglycemia and does know how to correct it. Pt reports that her blood sugar is usually under 100. Hx of vitamin d deficiency and iron deficiency. [facility] Medical History HLD (hyperlipidemia) Hypertension Transaminitis T2DM (type 2 diabetes mellitus) Concussion KIMMY positive Abnormal EKG HLD (hyperlipidemia) Right cervical radiculopathy Right shoulder tendonitis Surgical History History of suburethral sling procedure Hx of cardiac cath (~10/2017) History of hysterectomy Hx of cholecystectomy Family History Father CAD (coronary artery disease) PVD (peripheral vascular disease) HTN (hypertension) Hyperlipidemia Myocardial infarction Mother HTN (hypertension) CLL (chronic lymphocytic leukemia) Sister No problems noted. Son No problems noted. Social History Housing: House Alcohol intake: current Alcohol intake frequency: holidays/special occasions only Patient Tobacco Use Status: Never used Tobacco e-Cigarette/Vaping Use: Never Used Second Hand Smoke Exposure: No service: No Current occupational status: employed Current occupation: [employer] Current occupational exposures/hazards: Yes Cognitive needs: No Hearing needs: No Vision needs: No Questionnaire PHQ-9 Over the last 2 weeks, how often have you been bothered by any of the following problems? 1. Little interest or pleasure in doing things: several days 2. Feeling down, depressed, or hopeless: not at all 3. Trouble falling or staying asleep, or sleeping too much: not at all 4. Feeling tired or having little energy: not at all 5. Poor appetite or overeating: not at all 6. Feeling bad about yourself - or that you are a failure or have let yourself or your family down: not at all 7. Trouble concentrating on things, such as reading the newspaper or watching television: not at all 8. Moving or speaking so slowly that other people could have noticed. Or the opposite - being so fidgety or restless that you have been moving around a lot more than usual: not at all 9. Thoughts that you would be better off or of hurting yourself in some way: not at all Total score: 1 Source: Developed by Drs. Coleman Manzo, Sofia Ruiz, Micheal Bhatia and colleagues, with an educational kelsy from [employer]. Thrive Questionnaire Date Thrive assessed: 09/29/23 I am a: Patient What is your living situation today?: I have a steady place to live Within the past 12 months, did the food you bought not last and you didn't have the money to get more?: Never true Within the past 12 months, did you worry whether your food would run out before you got money to buy more?: Never true Do you have trouble paying for medicines?: No Do you have trouble getting transportation to medical appointments?: No Do you have trouble paying your heating and electricity bill?: No Do you have trouble taking care of your child, family member or friend?: No Do you have trouble with day-to-day activities such as bathing, preparing meals, shopping, managing finances, etc.?: No Are you currently unemployed and looking for a job?: No Are you interested in more education?: No THRIVE Score: 0 AUDIT C Alcohol Use Questionnaire (AUDIT-C) 1. How often do you have a drink containing alcohol?: 2-4 times a month 2. How many drinks containing alcohol do you have on a typical day when you are drinking?: 1 or 2 3. How often do you have six or more drinks on one occasion?: Never Total Score: 2 JUDY-7 AMB Questionnaire JUDY-7 Date JUDY - 7 assessed: 09/29/23 Feeling nervous, anxious, or on edge: 0 = Not at all Not being able to stop or control worryin = Several days Worrying too much about different things: 0 = Not at all Being so restless that it is hard to sit still: 0 = Not at all Becoming easily annoyed or irritable: 0 = Not at all Feeling afraid as if something awful might happen: 0 = Not at all Source: Developed by Drs. Coleman Manzo, Sofia Ruiz, Micheal Bhatia and colleagues, with an educational kelsy from [employer]. Review of Systems Const Denies chills and Denies fever(s) Eyes Denies blurry vision ENT Denies vertigo, Denies dizziness and Denies sore throat Card Denies chest pain at rest, Denies chest pain with activity, Denies diaphoresis, Denies dyspnea and Denies dyspnea on exertion Resp Denies cough, Denies dyspnea, Denies dyspnea on exertion and Denies wheezing GI Denies abdominal pain, Denies melena, Denies hematochezia, Denies constipation, Denies diarrhea and Denies loose stools Denies hematuria Musc Denies numbness and Denies tingling Skin/Breast Denies lesions Neuro Denies vertigo, Denies dizziness, Denies numbness and Denies tingling Psych Denies anxiety, Denies depression, Denies homicidal ideation, Denies suicidal ideation and Denies other (substance abuse) Aller/Immun Denies wheezing Physical exam (Primary Care) Vital Signs: Last Vital Signs Pulse 77 09/29/23 15:33 BP 122/86 09/29/23 15:33 Pulse Ox 96 09/29/23 15:33 Oxygen Delivery Method Room Air 09/29/23 15:33 BMI result Body Mass Index 32.2 Tobacco/Smoking Status: Tobacco use Status Tobacco use date assessed 09/29/23 09/29/23 15:43 Patient Tobacco Use Status Never used Tobacco 09/29/23 15:38 e-Cigarette/Vaping Use Never Used 09/29/23 15:38 PHQ-9: PHQ-9 Score PHQ-9: Total score 1 09/29/23 16:14 Thrive Assessment: Date of Thrive Assessment Date Thrive assessed 09/29/23 09/29/23 15:45 Const General: cooperative Nutritional Appearance: obese Orientation/consciousness: patient oriented x3 HENMT Head: Yes normal to inspection, Yes normocephalic and Yes atraumatic Ears: TM's normal bilaterally Eyes General: appearance normal, both eyes and all related structures Alignment and Position: alignment normal and position normal Neck Neck: Yes normal visual inspection and Yes no lymphadenopathy Thyroid: Thyroid normal Resp Effort & Inspection: normal respiratory effort Auscultation: clear to auscultation bilaterally Cardio Rate: regular rate Rhythm: regular rhythm Heart sounds: S1 normal heart sound present, S2 normal heart sound present and no murmurs GI Palpation (GI): Soft to palpation and nontender Auscultation: normal bowel sounds Skin Rashes: no rashes Neuro General: patient oriented x3, moves all extremities, no focal motor deficits and deep tendon reflexes 2+ bilaterally Romberg Test: Negative Psych Appearance: grossly normal Mental Status: mental status grossly normal Speech and movement: Normal speech and movement present Affect: normal affect Attitude: cooperative Thought process: Normal thought process present Thought content: Normal thought content present Insight: Good insight present (Psych) Judgement: Good judgement present (Psych) Assessment and Plan Assessment & Plan (1) Screening for colon cancer: Code(s): Z12.11 - Encounter for screening for malignant neoplasm of colon Plan: Referred to GI (2) T2DM (type 2 diabetes mellitus): Code(s): E11.9 - Type 2 diabetes mellitus without complications Plan: Labs ordered (3) Physical exam: Code(s): Z00.00 - Encounter for general adult medical examination without abnormal f indings Plan: Labs ordered (4) Iron deficiency: Code(s): E61.1 - Iron deficiency (5) Vitamin D deficiency: Code(s): E55.9 - Vitamin D deficiency, unspecified Plan The patient agreed to the use of a director medical writing for this encounter. Scribed for KARIN Montejo by Wandy Willams director medical writing, on 09/29/2023 at 16:00 EST. Orders: Orders Complete Blood Count Auto Diff Today E11.9 - Type 2 diabetes mellitus without complications Microalbumin, Random (w Creat) Today E11.9 - Type 2 diabetes mellitus without complications, Z00.00 - Encounter for general adult medical examination without abnormal findings Ferritin Today E61.1 - Iron deficiency Vitamin D 25-OH Total Today E55.9 - Vitamin D deficiency, unspecified Comprehensive [place]. Panel Fast Today E11.9 - Type 2 diabetes mellitus without complications TSH reflex Free T4 Today E11.9 - Type 2 diabetes mellitus without complications UA CC w/rflx Micro + Cult Today E11.9 - Type 2 diabetes mellitus without complications Lipid Panel Today E11.9 - Type 2 diabetes mellitus without complications Hemoglobin A1c Today E11.9 - Type 2 diabetes mellitus without complications IRON PROFILE Today E61.1 - Iron deficiency Referrals Gastroenterology Referral Z12.11 - Encounter for screening for malignant neoplasm of colon Coding Level of Care Code Est Pt Prev Care 40-64y(88934) Diagnoses Screening for colon cancer Z12.11 T2DM (type 2 diabetes mellitus) E11.9 Physical exam Z00.00 Iron deficiency E61.1 Vitamin D deficiency E55.9
[2023-09-29 15:33] VITALS: BP 122/86; PULSE 77; O2SAT 96; BMI 32.2
== END 2023-09-29 16:55 | disposition home or self-care (01) ==
PROVIDERS: PCP Nurse Practitioner Family; Visit Provider Nurse Practitioner Family
DX: Z12.11 Encounter for screening for malignant neoplasm of colon (principal); E11.9 Type 2 diabetes mellitus without complications; Z00.00 Encounter for general adult medical examination without abnormal findings; E61.1 Iron deficiency; E55.9 Vitamin D deficiency, unspecified
CPT/HCPCS: 99396

== ENCOUNTER 2023-10-11 10:37 | Outpatient (REF) | payer OTHER, SELFPAY ==
[2023-10-11 13:42] LABS: MANUAL DIFF FLAG NO
[2023-10-11 13:49] LABS: Basophils Absolute Auto 0.1 X10*3/uL (0.0-0.2); Eosinophils Absolute Auto 0.5 X10*3/uL (0.0-0.4); Eosinophils Percent Auto 5.1 % (0-4); Hematocrit 48.5 % (37.0-47.0); Hemoglobin 16.4 g/dl (12.0-16.0); Imm Gran Abs Auto 0.03 X10*3/uL (0.00-0.03); Imm Gran Pct Auto 0.3 % (0.0-0.4); Lymphocytes Absolute Auto 3.4 X10*3/uL (1.2-4.9); Lymphocytes Percent Auto 37.3 % (20-40); Mean Corpuscular HGB Conc 33.8 g/dl (31.0-35.0); Mean Corpuscular Hemoglobin 30.5 pg (27.0-33.0); Mean Corpuscular Volume 90.1 fL (80.0-98.0); Mean Platelet Volume 10.1 fL (9.4-12.3); Monocytes Absolute Auto 0.7 X10*3/uL (0.1-1.2); Monocytes Percent Auto 7.7 % (2-11); Neutrophils Absolute Auto 4.4 x10*3/uL (2.0-8.3); Neutrophils Percent Auto 48.6 % (45-73); Platelet Count 338 X10*3/uL (160-400); Red Blood Count 5.38 X10*6/uL (4.20-5.50); Red Cell Distribution Width 13.1 % (11.0-16.0); White Blood Count 9.1 X10*3/uL (4.8-10.8)
[2023-10-11 14:08] LABS: Alanine Aminotransferase 85 U/L (0-31); Albumin Level 4.2 g/dL (3.5-5.0); Alkaline Phosphatase 79 U/L (39-117); Anion Gap 10 (12-20); Aspartate Amino Transferase 36 U/L (5-31); Bilirubin Total 0.4 mg/dL (0.0-1.0); Blood Urea Nitrogen 15 mg/dL (9-16); Carbon Dioxide 32 mmol/L (22-29); Chloride 102 mmol/L (96-108); Cholesterol 162 mg/dL (<200); Estimated Glomerular Filt Rate > 60; Glucose Fasting 91 mg/dL (60-99); HDL Cholesterol 50 mg/dL (>40); Iron 140 mcg/dL (30-160); LDL Cholesterol Calculated 73 mg/dL (<100); Percent Iron Saturation 40 % (15-50); Potassium 3.7 mmol/L (3.3-5.1); Sodium 140 mmol/L (135-145); Total Iron Binding Capacity 349 mcg/dL (228-428); Total Protein 7.1 g/dL (6.5-8.0); Triglycerides 196 mg/dL (<150); Unsaturated Iron Binding 209 ug/dL
[2023-10-11 14:09] LABS: Estimated Average Glucose 105 mg/dL; Hemoglobin A1c % 5.3 % (<6.0)
[2023-10-11 14:16] LABS: Appearance Urine Turbid; Color Urine Yellow; Glucose Urine UA Negative (Negative); Leukocyte Esterase Urine Negative (Negative); Nitrite Urine Negative (Negative); PH 8.5 (5.0-9.0); Urine Blood Negative (Negative); Urine Ketones Negative (Negative); Urine Protein Negative (Neg-Trace)
[2023-10-11 14:25] LABS: Ferritin 76 ng/mL (10-250); TSH reflex Free T4 1.93 uIU/mL (0.32-4.0); Vitamin D 25-OH Total 84.3 ng/mL (>30)
== END 2023-10-11 10:38 | disposition home or self-care (01) ==
LOC: HO.HMGCLDS 10:37
PROVIDERS: PCP Nurse Practitioner Family; Visit Provider Nurse Practitioner Family
DX: Z00.00 Encounter for general adult medical examination without abnormal findings (principal); E55.9 Vitamin D deficiency, unspecified; E11.9 Type 2 diabetes mellitus without complications; E61.1 Iron deficiency
CPT/HCPCS: 36415; 80053; 80061; 81003; 82043; 82306; 82570; 82728; 83036; 83540; 84443; 85025

== ENCOUNTER 2023-10-25 15:10 | Outpatient (AMB) | payer OTHER, SELFPAY ==
[2023-10-25 15:16] VITALS: BP 120/70; PULSE 96; TEMP 36.6; O2SAT 98; BMI 32.3
--- NOTE | 2023-10-25 15:16 | AM.OFFWIN_ITS ---
Intake Vital Signs 10/25/23 15:16 Height 5 ft 4 in Weight 188 lb BMI 32.3 BP 120/70 Blood Pressure Location Lt brachial Position Sitting Pulse 96 Pulse Source Pulse Oximeter Temp 97.8 F Temp Source Temporal Artery Scan Pulse Oximetry (%) 98 Oxygen Delivery Method Room Air Intake Visit Reasons: EST/uti(lobby) Intake Note: t is here today for UTI started today Patient Tobacco Use Status: Never used Tobacco Allergies tramadol [TRAMADOL] Allergy (Severe, Verified 12/01/23 15:24) ITCHING adhesive tape [ADHESIVE TAPE] Allergy (Intermediate, Verified 12/01/23 15:24) RASH codeine [Codeine] Allergy (Unknown, Verified 12/01/23 15:24) CHEST PAIN diltiazem [Cardizem] Allergy (Unknown, Verified 12/01/23 15:24) Unknown ketorolac [From TORADOL] Allergy (Unknown, Verified 12/01/23 15:24) ITCHING morphine Allergy (Unknown, Verified 12/01/23 15:24) aggitation Medication List - Last Reconciled 10/25/23 by CAMILA Vences amlodipine 2.5 mg PO DAILY 90 days blood sugar diagnostic (OneTouch Ultra Blue Test Strip) As directed blood sugar diagnostic (FreeStyle Lite Strips) 4x daily blood-glucose meter (FreeStyle Lite Meter kit) As directed cephalexin 500 mg PO BID 7 days cholecalciferol (vitamin D3) 1,250 mcg PO QWEEK 3 months dicyclomine 20 mg PO ONCE estradiol 0.01%(0.1mg/gram) vaginal hydrochlorothiazide 50 mg PO DAILY 90 days lancets (FreeStyle Lancets) 4x daily lansoprazole 30 mg PO BID omega 5-alr-jpl-fish oil 1,000 mg (120 mg-180 mg) (Fish Oil) 1 cap PO DAILY rosuvastatin 20 mg PO DAILY tirzepatide (Mounjaro) 5 mg (0.5 mL) subcut QWEEK 30 days Do you need a note to return to daycare/school/sports/work: No HPI HPI Comments History of Present Illness Details 53-year-old female presents with 1 day o f dysuria urgency frequency. Does have a past medical history of UTI. She also has a past medical history of renal calculi but has no back pain at this time. [facility] Medical History HLD (hyperlipidemia) Hypertension Transaminitis T2DM (type 2 diabetes mellitus) Concussion KIMMY positive Abnormal EKG HLD (hyperlipidemia) Right cervical radiculopathy Right shoulder tendonitis Surgical History History of suburethral sling procedure Hx of cardiac cath (~10/2017) History of hysterectomy Hx of cholecystectomy Family History Father CAD (coronary artery disease) PVD (peripheral vascular disease) HTN (hypertension) Hyperlipidemia Myocardial infarction Mother HTN (hypertension) CLL (chronic lymphocytic leukemia) Sister No problems noted. Son No problems noted. Social History Housing: House Alcohol intake: current Alcohol intake frequency: holidays/special occasions only Patient Tobacco Use Status: Never used Tobacco e-Cigarette/Vaping Use: Never Used Second Hand Smoke Exposure: No service: No Current occupational status: employed Current occupation: [employer] Current occupational exposures/hazards: Yes Cognitive needs: No Hearing needs: No Vision needs: No Review of Systems Const All systems reviewed & are unremarkable except as noted in HPI and below Physical Exam Vital Signs: Last Vital Signs Temp 97.8 F 10/25/23 15:16 Pulse 96 10/25/23 15:16 BP 120/70 10/25/23 15:16 Pulse Ox 98 10/25/23 15:16 Oxygen Delivery Method Room Air 10/25/23 15:16 BMI result Body Mass Index 32.3 Const General: healthy appearing and no acute distress HEENT Head: Yes normal to inspection, Yes normocephalic and Yes atraumatic Ears: hearing grossly normal bilaterally General nose exam: Normal external nose present Face and sinus: Yes normal facial exam Results AMB Urinalysis, Automated UA Leukoctes 125 Luz/uL Last Edit by Kate Lai CMA on 10/25/23 15:4 4 UA Nitrite Positive Last Edit by Kate Lai CMA on 10/25/23 15:44 UA Urobilinogen 0.2 mg/dL Last Edit by Kate Lai, KAILYN on 10/25/23 15 :44 UA Protein 0 mg/dL Last Edit by Kate Lai, KAILYN on 10/25/23 15:44 UA pH 6.0 Last Edit by Kate Lai, KAILYN on 10/25/23 15:44 UA Blood 25 Jakob/uL Last Edit by Kate Lai, KAILYN on 10/25/23 15:44 UA Specific [place] 1.025 Last Edit by Kate Lai, KAILYN on 10/25/23 15:44 UA Ketone Negative Last Edit by Kate Lai, KAILYN on 10/25/23 15:44 UA Bilirubin 0 mg/dL Last Edit by Kate Lai, KAILYN on 10/25/23 15:44 UA Glucose 0 mg/dL Last Edit by Kate Lai, AKILYN on 10/25/23 15:44 Results Reviewed Results Reviewed: Laboratory Last Values Urine pH (Auto) 6.0 10/25/23 15:30 Specific [place] (Auto) 1.025 10/25/23 15:30 Urine Protein (Auto) 0 mg/dL 10/25/23 15:30 Glucose (UA)(Auto) 0 mg/dL 10/25/23 15:30 Urine Ketones (Auto) Negative 10/25/23 15:30 Urine Blood (Auto) 25 Jakob/uL 10/25/23 15:30 Urine Nitrite (Auto) Positive 10/25/23 15:30 Urine Bilirubin (Auto) 0 mg/dL 10/25/23 15:30 Urine Urobilinogen (Auto) 0.2 mg/dL 10/25/23 15:30 Leukocyte Esterase (Auto) 125 Luz/uL 10/25/23 15:30 Discussed the results for urinalysis with leukocytes and blood present. Assessment & Plan Assessment & Plan (1) Dysuria: Code(s): R30.0 - Dysuria Plan: The patient will start on cephalexin b.i.d. for 7 days. The urine will be sent for culture and we will call to confirm that it is sensitive to the cephalexin Orders: Orders AMB Urinalysis Automated 10/25/23 Z13.9 - Encounter for screening, unspecified Urine Culture 10/25/23 R30.0 - Dysuria Medications: New cephalexin 500 mg PO BID 14 caps 0RF 7 days phenazopyridine (Pyridium) 100 mg PO TID PRN 10 tabs 0RF pain Coding Level of Care Code Est Pt Level 3 (00109) Diagnoses Dysuria R30.0
== END 2023-10-25 16:02 | disposition home or self-care (01) ==
PROVIDERS: PCP Nurse Practitioner Family; Visit Provider Physician Assistant Medical
DX: R30.0 Dysuria (principal)
CPT/HCPCS: 81003; 99213

== ENCOUNTER 2023-11-08 15:24 | Outpatient (REF) | payer OTHER, SELFPAY | END 2023-11-08 15:25 | disposition home or self-care (01) | LOC: HO.LAB 15:24 | PROVIDERS: PCP Nurse Practitioner Family; Visit Provider Physician Assistant Medical | DX: R30.0 Dysuria (principal) | CPT/HCPCS: 87086 ==

== ENCOUNTER 2023-11-26 15:32 | Outpatient (AMB) | payer OTHER, SELFPAY ==
--- NOTE | 2023-11-26 15:36 | MHC.OFFWIV ---
Intake Vital Signs 11/26/23 15:37 Height 5 ft 4 in BP 120/86 Blood Pressure Location Lt brachial Position Sitting Pulse 72 Pulse Source Pulse Oximeter Temp 98.4 F Temp Source Oral Pulse Oximetry (%) 96 Oxygen Delivery Method Room Air Intake Visit Reasons: EP ear/sinus infection Intake Note: pt is here for left ear pain and blocked and pt has sinus pain and pressure and her teeth hurt Patient Tobacco Use Status: Never used Tobacco Allergies tramadol [TRAMADOL] Allergy (Severe, Verified 11/26/23 15:41) ITCHING adhesive tape [ADHESIVE TAPE] Allergy (Intermediate, Verified 11/26/23 15:41) RASH codeine [Codeine] Allergy (Unknown, Verified 11/26/23 15:41) CHEST PAIN diltiazem [Cardizem] Allergy (Unknown, Verified 11/26/23 15:41) Unknown ketorolac [From TORADOL] Allergy (Unknown, Verified 11/26/23 15:41) ITCHING morphine Allergy (Unknown, Verified 11/26/23 15:41) aggitation HPI HPI Comments History of Present Illness Details This is a 53-year-old female who presents to the walk-in clinic complaining of left-sided ear pain and sinus pain/pressure as well as rhinorrhea x1 week. Patient denies any fevers or chills. She denies any sore throat. She denies any chest pain or shortness of breath. She denies any cough. She denies any abdominal pain or nausea/vomiting/diarrhea. Patient is otherwise feeling well. [facility] Medical History HLD (hyperlipidemia) Hypertension Transaminitis T2DM (type 2 diabetes mellitus) Concussion KIMMY positive Abnormal EKG HLD (hyperlipidemia) Right cervical radiculopathy Right shoulder tendonitis Surgical History History of suburethral sling procedure Hx of cardiac cath (~10/2017) History of hysterectomy Hx of cholecystectomy Family History Father CAD (coronary artery disease) PVD (peripheral vascular disease) HTN (hypertension) Hyperlipidemia Myocardial infarction Mother HTN (hypertension) CLL (chronic lymphocytic leukemia) Sister No problems noted. Son No problems noted. Social History Housing: House Alcohol intake: current Alcohol intake frequency: holidays/special occasions only Patient Tobacco Use Status: Never used Tobacco e-Cigarette/Vaping Use: Never Used Second Hand Smoke Exposure: No service: No Current occupational status: employed Current occupation: [employer] Current occupational exposures/hazards: Yes Cognitive needs: No Hearing needs: No Vision needs: No Review of Systems Const All systems reviewed & are unremarkable except as noted in HPI and below Reports no additional complaints Eyes Reports no additional complaints ENT Reports no additional complaints Card Reports no additional complaints Resp Reports no additional complaints GI Reports no additional complaints Reports no additional complaints Musc Reports no additional complaints Skin/Breast Reports system reviewed and no additional complaints, except as documented Neuro Reports no additional complaints Psych Reports no additional complaints Endo Reports no additional complaints Augusto/Lymph Reports no additional complaints Aller/Immun Reports no additional complaints Physical Exam Vital Signs: Last Vital Signs Temp 98.4 F 11/26/23 15:37 Pulse 72 11/26/23 15:37 BP 120/86 11/26/23 15:37 Pulse Ox 96 11/26/23 15:37 Oxygen Delivery Method Room Air 11/26/23 15:37 Const Other: Vital signs reviewed. Constitutional: Non-toxic appearing. No acute distress. Well-developed and well-nourished. HEENT: Normocephalic and atraumatic. Her left tympanic membrane is erythematous, edematous, and bulging. External auditory canals without erythema or edema bilaterally. She has mild maxillary sinus tenderness to palpation. Skin: Warm and dry. No rashes or lesions noted. Neck: Full and painless range of motion. No cervical lymphadenopathy. Cardio: Regular rate and rhythm. No murmurs, gallops, or rubs. No lower extremity edema. No JVD. Pulmonary: No respiratory distress. No accessory muscle usage. Clear to auscultation bilaterally without wheezing, crackles, or rhonchi. Gastrointestinal: Soft, nontender, and nondistended in all 4 quadrants. Musculoskeletal: Normal range of motion in joints throughout the body. No deformity or other signs of injury. Neuro: Alert and oriented x4. Cranial nerves 2-12 grossly intact. No focal deficits appreciated. Psych: Normal mood and affect. Assessment & Plan Assessment & Plan (1) Otitis media: Code(s): H66.90 - Otitis media, unspecified, unspecified ear Qualifiers: Chronicity: acute Laterality: left (2) Acute bacterial rhinosinusitis: Code(s): J01.90 - Acute sinusitis, unspecified; B96.89 - Other specified bacterial agents as the cause of diseases classified elsewhere Plan This is a 53-year-old female who presented to the walk-in clinic complaining of left-sided otalgia as well as severe sinus pressure/congestion and rhinorrhea with green yellow nasal discharge. History and physical most consistent with acute otitis media of the left ear as well as likely bacterial rhinosinusitis. The patient was given a prescription for p.o. amoxicillin/clavulanate 875/125 mg twice daily x7 days. Recommended symptomatic management including rest, increased fluids, advil/tylenol for pain/fever, and over the counter throat lozenges/decongestants. Patient advised to follow up here or go to the emergency room for worsening/persistent symptoms. Patient verbalized understanding and is agreeable with the plan. Medications: New amoxicillin-pot clavulanate 875-125 mg 1 tab PO BID 14 tabs 0RF Coding Level of Care Code Est Pt Level 3 (76574) Diagnoses Otitis media H66.90 Chronicity: acute Laterality: left Acute bacterial rhinosinusitis J01.90; B96.89
[2023-11-26 15:37] VITALS: BP 120/86; PULSE 72; TEMP 36.9; O2SAT 96
== END 2023-11-26 16:33 | disposition home or self-care (01) ==
PROVIDERS: PCP Nurse Practitioner Family; Visit Provider Physician Assistant Medical
DX: H66.90 Otitis media, unspecified, unspecified ear (principal); J01.90 Acute sinusitis, unspecified; B96.89 Other specified bacterial agents as the cause of diseases classified elsewhere
CPT/HCPCS: 99213

== ENCOUNTER 2023-12-01 15:18 | Outpatient (AMB) | payer OTHER, SELFPAY ==
--- NOTE | 2023-12-01 15:21 | MHC.OFFWIV ---
Intake Vital Signs 12/01/23 15:22 Weight 191 lb 2 oz BP 128/90 H Blood Pressure Location Lt brachial Position Sitting Pulse 73 Pulse Source Pulse Oximeter Temp 97.9 F Temp Source Oral Pulse Oximetry (%) 96 Intake Visit Reasons: EP Ear infection/Vertigo Intake Note: Pt is here today for an Ear infection and states hasn't got better from last visit. Patient Tobacco Use Status: Never used Tobacco Allergies tramadol [TRAMADOL] Allergy (Severe, Verified 12/01/23 15:24) ITCHING adhesive tape [ADHESIVE TAPE] Allergy (Intermediate, Verified 12/01/23 15:24) RASH codeine [Codeine] Allergy (Unknown, Verified 12/01/23 15:24) CHEST PAIN diltiazem [Cardizem] Allergy (Unknown, Verified 12/01/23 15:24) Unknown ketorolac [From TORADOL] Allergy (Unknown, Verified 12/01/23 15:24) ITCHING morphine Allergy (Unknown, Verified 12/01/23 15:24) aggitation Do you need a note to return to daycare/school/sports/work: Yes HPI HPI Comments History of Present Illness Details 53 y/o female patient with c/o Dizziness and ear pain. Pt was in the ED and prescribed Amoxicillin 7 days. Today is 5th day, and Pt reports no improvement. C/o Vertigo for few days now. [facility] History HLD (hyperlipidemia) Hypertension Transaminitis T2DM (type 2 diabetes mellitus) Concussion KIMMY positive Abnormal EKG HLD (hyperlipidemia) Right cervical radiculopathy Right shoulder tendonitis Surgical History History of suburethral sling procedure Hx of cardiac cath (~10/2017) History of hysterectomy Hx of cholecystectomy Family History Father CAD (coronary artery disease) PVD (peripheral vascular disease) HTN (hypertension) Hyperlipidemia Myocardial infarction Mother HTN (hypertension) CLL (chronic lymphocytic leukemia) Sister No problems noted. Son No problems noted. Social History Housing: House Alcohol intake: current Alcohol intake frequency: holidays/special occasions only Patient Tobacco Use Status: Never used Tobacco e-Cigarette/Vaping Use: Never Used Second Hand Smoke Exposure: No service: No Current occupational status: employed Current occupation: [employer] Current occupational exposures/hazards: Yes Cognitive needs: No Hearing needs: No Vision needs: No Review of Systems Const All systems reviewed & are unremarkable except as noted in HPI and below Physical Exam Vital Signs: Last Vital Signs Temp 97.9 F 12/01/23 15:22 Pulse 73 12/01/23 15:22 BP 128/90 H 12/01/23 15:22 Pulse Ox 96 12/01/23 15:22 Const General: comfortable and no acute distress Orientation/consciousness: patient oriented x3 HEENT Head: Yes normocephalic Ears: external ears normal and TM abnormal with fluid behind the TM bilateral; not bulging, not bullous, not with effusion, not erythematous, not perforated and not retracted General nose exam: Normal nares present and Abnormal mucous membranes and turbinates present boggy and erythematous Face and sinus: Yes sinus tenderness Mouth: moist mucous membranes Throat: Yes posterior oropharynx normal Resp Effort & Inspection: normal respiratory effort and able to speak in complete sentences Auscultation: clear to auscultation bilaterally, no crackles, no rales, no rhonchi and no wheezes Cardio Rate: regular rate Rhythm: regular rhythm Neuro General: patient oriented x3 Assessment & Plan Assessment & Plan (1) Vertigo: Code(s): R42 - Dizziness and giddiness Plan: - Meclizine as directed - Change position slowly - Hydrate well with plenty of water (2) Sinus pressure: Code(s): J34.89 - Other specified disorders of nose and nasal sinuses Plan: - Decongestants such as Sudafed - Nasal saline sprays. Medications: New pseudoephedrine HCl ER (Sudafed 24 Hour) 240 mg PO DAILY PRN 30 tabs 0RF nasal congestion J34.89 - Other specified disorders of nose and nasal sinuses meclizine 50 mg PO BID 30 tabs 0RF dizziness R42 - Dizziness and giddiness Coding Level of Care Code Est Pt Level 3 (74661) Diagnoses Vertigo R42 Sinus pressure J34.89 Time Spent (min) 15
[2023-12-01 15:22] VITALS: BP 128/90; PULSE 73; TEMP 36.6; O2SAT 96
== END 2023-12-01 15:57 | disposition home or self-care (01) ==
PROVIDERS: PCP Nurse Practitioner Family; Visit Provider Nurse Practitioner Family
DX: R42 Dizziness and giddiness (principal); J34.89 Other specified disorders of nose and nasal sinuses
CPT/HCPCS: 99213

== ENCOUNTER 2023-12-24 12:09 | Outpatient (REF) | payer OTHER, SELFPAY ==
[2023-12-24 13:30] LABS: MANUAL DIFF FLAG NO
[2023-12-24 13:39] LABS: Basophils Absolute Auto 0.1 X10*3/uL (0.0-0.2); Basophils Percent Auto 0.8 % (0-2); Eosinophils Absolute Auto 0.3 X10*3/uL (0.0-0.4); Eosinophils Percent Auto 2.6 % (0-4); Hematocrit 46.3 % (37.0-47.0); Hemoglobin 15.8 g/dl (12.0-16.0); Imm Gran Abs Auto 0.04 X10*3/uL (0.00-0.03); Imm Gran Pct Auto 0.4 % (0.0-0.4); Lymphocytes Absolute Auto 3.8 X10*3/uL (1.2-4.9); Lymphocytes Percent Auto 38.5 % (20-40); Mean Corpuscular HGB Conc 34.1 g/dl (31.0-35.0); Mean Corpuscular Hemoglobin 30.6 pg (27.0-33.0); Mean Corpuscular Volume 89.6 fL (80.0-98.0); Mean Platelet Volume 9.6 fL (9.4-12.3); Monocytes Absolute Auto 0.9 X10*3/uL (0.1-1.2); Neutrophils Absolute Auto 4.8 x10*3/uL (2.0-8.3); Neutrophils Percent Auto 48.7 % (45-73); Platelet Count 410 X10*3/uL (160-400); Red Blood Count 5.17 X10*6/uL (4.20-5.50); Red Cell Distribution Width 12.9 % (11.0-16.0); White Blood Count 9.8 X10*3/uL (4.8-10.8)
[2023-12-24 14:29] LABS: Alanine Aminotransferase 53 U/L (0-31); Albumin Level 4.5 g/dL (3.5-5.0); Alkaline Phosphatase 79 U/L (39-117); Aspartate Amino Transferase 28 U/L (5-31); Bilirubin Direct 0.1 mg/dL (0.0-0.5); Bilirubin Total 0.4 mg/dL (0.0-1.0); Total Protein 7.6 g/dL (6.5-8.0)
== END 2023-12-24 12:10 | disposition home or self-care (01) ==
LOC: HO.HMGCLDS 12:09
PROVIDERS: PCP Nurse Practitioner Family; Visit Provider Nurse Practitioner Family
DX: R74.8 Abnormal levels of other serum enzymes (principal); D72.829 Elevated white blood cell count, unspecified
CPT/HCPCS: 36415; 80076; 85025

== ENCOUNTER 2024-03-23 09:35 | Outpatient (REF) | payer OTHER, SELFPAY ==
[2024-03-23 12:58] LABS: MANUAL DIFF FLAG NO
[2024-03-23 13:04] LABS: Basophils Absolute Auto 0.1 X10*3/uL (0.0-0.2); Basophils Percent Auto 0.7 % (0-2); Eosinophils Absolute Auto 0.3 X10*3/uL (0.0-0.4); Eosinophils Percent Auto 2.2 % (0-4); Hematocrit 48.2 % (37.0-47.0); Hemoglobin 16.2 g/dl (12.0-16.0); Imm Gran Abs Auto 0.04 X10*3/uL (0.00-0.03); Imm Gran Pct Auto 0.4 % (0.0-0.4); Lymphocytes Absolute Auto 3.7 X10*3/uL (1.2-4.9); Lymphocytes Percent Auto 32.5 % (20-40); Mean Corpuscular HGB Conc 33.6 g/dl (31.0-35.0); Mean Corpuscular Hemoglobin 29.8 pg (27.0-33.0); Mean Corpuscular Volume 88.8 fL (80.0-98.0); Mean Platelet Volume 11.6 fL (9.4-12.3); Monocytes Percent Auto 8.9 % (2-11); Neutrophils Absolute Auto 6.3 x10*3/uL (2.0-8.3); Neutrophils Percent Auto 55.3 % (45-73); Platelet Count 157 X10*3/uL (160-400); Red Blood Count 5.43 X10*6/uL (4.20-5.50); Red Cell Distribution Width 13.1 % (11.0-16.0); White Blood Count 11.4 X10*3/uL (4.8-10.8)
[2024-03-23 13:05] LABS: Appearance Urine Clear; Color Urine Yellow; Glucose Urine UA Negative (Negative); Leukocyte Esterase Urine Negative (Negative); Nitrite Urine Negative (Negative); PH 6.5 (5.0-9.0); Specific Gravity - Urine >= 1.030 (1.005-1.025); Urine Blood Negative (Negative); Urine Ketones Negative (Negative); Urine Protein Negative (Neg-Trace)
[2024-03-23 13:17] LABS: Estimated Average Glucose 111 mg/dL; Hemoglobin A1C 152.3232 umol/L; Hemoglobin A1c % 5.5 % (<6.0)
[2024-03-23 13:35] LABS: Alanine Aminotransferase 63 U/L (0-31); Albumin Level 4.5 g/dL (3.5-5.0); Alkaline Phosphatase 75 U/L (39-117); Anion Gap 12 (12-20); Aspartate Amino Transferase 34 U/L (5-31); Bilirubin Total 0.6 mg/dL (0.0-1.0); Blood Urea Nitrogen 22 mg/dL (9-16); Calcium 10.8 mg/dL (8.4-10.2); Carbon Dioxide 31 mmol/L (22-29); Chloride 101 mmol/L (96-108); Cholesterol 192 mg/dL (<200); Estimated Glomerular Filt Rate > 60; Glucose Fasting 98 mg/dL (60-99); HDL Cholesterol 53 mg/dL (>40); LDL Cholesterol Calculated 105 mg/dL (<100); Potassium 3.6 mmol/L (3.3-5.1); Sodium 140 mmol/L (135-145); Total Protein 7.6 g/dL (6.5-8.0); Triglycerides 170 mg/dL (<150)
[2024-03-23 13:39] LABS: Creatinine Urine 207.47 mg/dL; Microalbum/Creatinine Ratio Ur 7.2 ug/mg cr (<30)
== END 2024-03-23 09:36 | disposition home or self-care (01) ==
LOC: HO.HMGCLDS 09:35
PROVIDERS: PCP Nurse Practitioner Family; Visit Provider Nurse Practitioner Family
DX: I10 Essential (primary) hypertension (principal); Z13.1 Encounter for screening for diabetes mellitus
CPT/HCPCS: 36415; 80053; 80061; 81003; 82043; 82306; 82570; 83036; 84443; 85025

== ENCOUNTER 2024-03-28 10:51 | Outpatient (AMB) | payer OTHER, SELFPAY ==
[2024-03-28 10:54] VITALS: BP 122/82; PULSE 76; O2SAT 97; BMI 32.8
--- NOTE | 2024-03-28 10:54 | A.OFFPC_ITS ---
Vital Signs 03/28/24 10:54 Height 5 ft 4 in Weight 191 lb BMI 32.8 BP 122/82 Blood Pressure Location Rt brachial Position Sitting Pulse 76 Pulse Source Pulse Oximeter Pulse Oximetry (%) 97 Oxygen Delivery Method Room Air Intake Visit Reasons: 6M F/U Intake Note: patient is here for 6 month follow up, patient last A1c was 5.5 within the last 3 months. patient states her blood sugar meter is no longer accepted under insurance and would need a new script for a new meter if needed. Prosthetics Technician Required: No Accompanied by: Self / Same As Patient Allergies tramadol [TRAMADOL] Allergy (Severe, Verified 03/28/24 10:56) ITCHING adhesive tape [ADHESIVE TAPE] Allergy (Intermediate, Verified 03/28/24 10:56) RASH codeine [Codeine] Allergy (Unknown, Verified 03/28/24 10:56) CHEST PAIN diltiazem [Cardizem] Allergy (Unknown, Verified 03/28/24 10:56) Unknown ketorolac [From TORADOL] Allergy (Unknown, Verified 03/28/24 10:56) ITCHING morphine Allergy (Unknown, Verified 03/28/24 10:56) aggitation Tobacco use date assessed: 09/29/23 Dental Screening Dental Screen Date: 09/29/23 HPI 6M F/U HPI Details Pt is a diabetic, on a statin. Last A1C was 5.5. Microalbumin is up to date. Denies polyuria, polydipsia, and neuropathy. Pt denies any signs and symptoms of hypoglycemia and does know how to correct it. Pt c/o palpitations. She reports waking up at night with palpitations and diaphoresis. Pt does report some palpitations during the day as well. She also reports some dizz iness/lightheadedness. Pt does report some chest discomfort. She denies any radicular symptoms down her arms. Will order 3 day holter. Will do an EKG in office today, first degree HB, holter ordered, pt following up with cardiology in July. Denies fever, chills, and N/V. [facility] Medical History HLD (hyperlipidemia) Hypertension Transaminitis T2DM (type 2 diabetes mellitus) Concussion KIMMY positive Abnormal EKG HLD (hyperlipidemia) Right cervical radiculopathy Right shoulder tendonitis Surgical History History of suburethral sling procedure Hx of cardiac cath (~10/2017) History of hysterectomy Hx of cholecystectomy Family History Father CAD (coronary artery disease) PVD (peripheral vascular disease) HTN (hypertension) Hyperlipidemia Myocardial infarction Mother HTN (hypertension) CLL (chronic lymphocytic leukemia) Sister No problems noted. Son No problems noted. Social History Housing: House Alcohol intake: current Alcohol intake frequency: holidays/special occasions only Patient Tobacco Use Status: Never used Tobacco e-Cigarette/Vaping Use: Never Used Second Hand Smoke Exposure: No service: No Current occupational status: employed Current occupation: [employer] Current occupational exposures/hazards: Yes Cognitive needs: No Hearing needs: No Vision needs: No Questionnaire Thrive Questionnaire Date Thrive assessed: 09/29/23 JUDY-7 AMB Questionnaire JUDY-7 Date JDUY - 7 assessed: 09/29/23 Source: Developed by Drs. Coleman Manzo, Sofia Ruiz, Micheal Bhatia and colleagues, with an educational kelsy from [employer]. Review of Systems Const Reports as per HPI Physical exam (Primary Care) Vital Signs: Last Vital Signs Pulse 76 03/28/24 10:54 BP 122/82 03/28/24 10:54 Pulse Ox 97 03/28/24 10:54 Oxygen Delivery Method Room Air 03/28/24 10:54 BMI result Body Mass Index 32.8 Tobacco/Smoking Status: Tobacco use Status Tobacco use date assessed 09/29/23 03/28/24 10:56 Patient Tobacco Use Status Never used Tobacco 03/28/24 10:56 e-Cigarette/Vaping Use Never Used 03/28/24 10:56 Thrive Assessment: Date of Thrive Assessment Date Thrive assessed 09/29/23 03/28/24 10:56 Const General: cooperative Orientation/consciousness: patient oriented x3 Resp Effort & Inspection: normal respiratory effort Auscultation: clear to auscultation bilaterally Cardio Rate: regular rate Rhythm: regular rhythm Heart sounds: S1 normal heart sound present and S2 normal heart sound present Neuro General: patient oriented x3 Extrem Right lower extremity: no edema Left lower extremity: no edema Psych Appearance: grossly normal Mental Status: mental status grossly normal Speech and movement: Normal speech and movement present Affect: normal affect Attitude: cooperative Thought process: Normal thought process present Thought content: Normal thought content present Insight: Good insight present (Psych) Judgement: Good judgement present (Psych) Assessment and Plan Assessment & Plan (1) Palpitations: Code(s): R00.2 - Palpitations Plan: Holter ordered, EKG done in office (2) Dizziness: Code(s): R42 - Dizziness and giddiness Plan: ? dehydration component/stress. encouraged to have fun on her trip starting tomorrow, encouraged to relax as much as possible, and to stay hydrated. Plan The patient agreed to the use of a diagnostic medical sonographer for this encounter. Scribed for DONYA Montejo-IBETH by Wandy Willams diagnostic medical sonographer, on 03/28/2024 at 11:10 EST. Orders: Orders ECG 3 day holter monitor Today R00.2 - Palpitations AMB EKG-In Office Today R00.2 - Palpitations Coding Level of Care Code Est Pt Level 3 (14924) Diagnoses Palpitations R00.2 Dizziness R42
== END 2024-03-28 12:08 | disposition home or self-care (01) ==
PROVIDERS: PCP Nurse Practitioner Family; Visit Provider Nurse Practitioner Family
DX: R00.2 Palpitations (principal); R42 Dizziness and giddiness
CPT/HCPCS: 99213

== ENCOUNTER → 2024-04-21 15:07 | Outpatient (REF) | payer OTHER, SELFPAY ==
--- NOTE | 2024-04-21 15:10 | HM_ITS ---
Conclusion: 1. Patient was monitored for total period of 3 days 2. Baseline was normal sinus rhythm with average heart rate of 73 beats per minute 3. No significant arrhythmias or pauses noted 4. Patient reported events 21 with wearing symptoms including chest pain, shortness of breath, headaches, palpitations all correlating with sinus rhythm MTDD
== END ==
LOC: HO.CARD 15:07
PROVIDERS: PCP Nurse Practitioner Family; Visit Provider Nurse Practitioner Family
DX: R00.2 Palpitations (principal)
CPT/HCPCS: 93242

== ENCOUNTER → 2024-04-21 15:10 | Outpatient (BNV) | payer OTHER, SELFPAY | PROVIDERS: PCP Nurse Practitioner Family; Visit Provider Internal Medicine Cardiovascular Disease | DX: I44.0 Atrioventricular block, first degree (principal) | CPT/HCPCS: 93244 ==

== ENCOUNTER 2024-06-01 15:25 | Outpatient (AMB) | payer OTHER, SELFPAY ==
--- NOTE | 2024-06-01 15:28 | AM.OFFWIN_ITS ---
Intake Vital Signs 06/01/24 15:35 Weight 191 lb BP 126/80 Blood Pressure Location Rt brachial Position Sitting Pulse 81 Pulse Source Pulse Oximeter Pulse Oximetry (%) 98 Oxygen Delivery Method Room Air Intake Visit Reasons: EP ? bladder infection Intake Note: Patient here for low back pain, urgency, abdominal pain which started last night. Patient would also like to talk about her recent joint pain. Patient Tobacco Use Status: Never used Tobacco Allergies tramadol [TRAMADOL] Allergy (Severe, Verified 06/01/24 15:34) ITCHING adhesive tape [ADHESIVE TAPE] Allergy (Intermediate, Verified 06/01/24 15:34) RASH codeine [Codeine] Allergy (Unknown, Verified 06/01/24 15:34) CHEST PAIN diltiazem [Cardizem] Allergy (Unknown, Verified 06/01/24 15:34) Unknown ketorolac [From TORADOL] Allergy (Unknown, Verified 06/01/24 15:34) ITCHING morphine Allergy (Unknown, Verified 06/01/24 15:34) aggitation Do you need a note to return to daycare/school/sports/work: No HPI HPI Comments History of Present Illness Details Patient is a 53-year-old female complaining of 2 days of increased frequency of urination, burning with urination and low back pain. She denies any fevers or blood in her urine. She states she does have a history of kidney stones and she states this kind of feels similar to that episode of kidney stones but not exactly the same. [facility] Medical History HLD (hyperlipidemia) Hypertension Transaminitis T2DM (type 2 diabetes mellitus) Concussion KIMMY positive Abnormal EKG HLD (hyperlipidemia) Right cervical radiculopathy Right shoulder tendonitis Surgical History History of suburethral sling procedure Hx of cardiac cath (~10/2017) History of hysterectomy Hx of cholecystectomy Family History Father CAD (coronary artery disease) PVD (peripheral vascular disease) HTN (hypertension) Hyperlipidemia Myocardial infarction Mother HTN (hypertension) CLL (chronic lymphocytic leukemia) Sister No problems noted. Son No problems noted. Social History Housing: House Alcohol intake: current Alcohol intake frequency: holidays/special occasions only Patient Tobacco Use Status: Never used Tobacco e-Cigarette/Vaping Use: Never Used Second Hand Smoke Exposure: No service: No Current occupational status: employed Current occupation: [employer] Current occupational exposures/hazards: Yes Cognitive needs: No Hearing needs: No Vision needs: No Review of Systems Const All systems reviewed & are unremarkable except as noted in HPI and below Physical Exam Vital Signs: Last Vital Signs Pulse 81 06/01/24 15:35 BP 126/80 06/01/24 15:35 Pulse Ox 98 06/01/24 15:35 Oxygen Delivery Method Room Air 06/01/24 15:35 Const General: cooperative, healthy appearing, comfortable and no acute distress Orientation/consciousness: patient oriented x3 HEENT Head: Yes normal to inspection Ears: hearing grossly normal bilaterally General nose exam: Normal external nose present Face and sinus: Yes normal facial exam Neck Neck: Yes normal visual inspection, Yes trachea midline and Yes supple Resp Effort & Inspection: normal respiratory effort and able to speak in complete sentences GI Inspection: Yes normal to inspection General: Yes CVA tenderness (slight) on the left Back/Spine/Pelvis Back: CVA tenderness (slight) Skin General skin exam: no rashes or lesions noted Neuro General: patient oriented x3 Psych Appearance: grossly normal Speech and movement: Normal speech and movement present Attitude: cooperative Thought process: Normal thought process present Insight: Good insight present (Psych) Judgement: Good judgement present (Psych) Results AMB Urinalysis, Automated UA Leukoctes 15 Luz/uL Last Edit by KIM Lyons on 06/01/24 15:4 1 UA Nitrite Negative Last Edit by KIM Lyons on 06/01/24 15:41 UA Urobilinogen 0.2 mg/dL Last Edit by KIM Lyons on 06/01/24 15:41 UA Protein 0 mg/dL Last Edit by KIM Lyons on 06/01/24 15:41 UA pH 6.5 Last Edit by KIM Lyons on 06/01/24 15:41 UA Blood 0 Jakob/uL Last Edit by KIM Lyons on 06/01/24 15:41 UA Specific Crump 1.015 Last Edit by Abdirashid Sanchez [facility] on 06/01/24 15:41 UA Ketone Negative Last Edit by Abdirashid Sanchez [facility] on 06/01/24 15:41 UA Bilirubin 0 mg/dL Last Edit by Abdirashid Sanchez [facility] on 06/01/24 15:41 UA Glucose 0 mg/dL Last Edit by Abdirashid Sanchez [facility] on 06/01/24 15:41 Results Reviewed Results Reviewed: Laboratory Last Values Urine pH (Auto) 6.5 06/01/24 15:41 Specific Crump (Auto) 1.015 06/01/24 15:41 Urine Protein (Auto) 0 mg/dL 06/01/24 15:41 Glucose (UA)(Auto) 0 mg/dL 06/01/24 15:41 Urine Ketones (Auto) Negative 06/01/24 15:41 Urine Blood (Auto) 0 Jakob/uL 06/01/24 15:41 Urine Nitrite (Auto) Negative 06/01/24 15:41 Urine Bilirubin (Auto) 0 mg/dL 06/01/24 15:41 Urine Urobilinogen (Auto) 0.2 mg/dL 06/01/24 15:41 Leukocyte Esterase (Auto) 15 Luz/uL 06/01/24 15:41 Assessment & Plan Assessment & Plan (1) UTI (urinary tract infection): Code(s): N39.0 - Urinary tract infection, site not specified Qualifiers: Urinary tract infection type: acute cystitis Hematuria presence: without hematuria Qualified Code(s): N30.00 - Acute cystitis without hematuria Plan: Vital signs are stable, patient is well-appearing she only had slight CVA tenderness in the left side but there is no microscopic hematuria on her UA, it is positive for leukocyte esterase and negative for nitrites. I will treat patient for UTI, sent antibiotic to pharmacy. Educated patient that if her pain should get worse or she should develop fevers, she should go to the emergency department for an evaluation of kidney stones. Patient also requesting Pyridium for pain Plan See above Orders: Orders AMB Urinalysis Automated Today Z13.9 - Encounter for screening, unspecified Medications: New nitrofurantoin monohyd/m-cryst 100 mg (Macrobid) must administer with a meal/food 100 mg PO Q12H 5 days 10 caps 0RF phenazopyridine 100 mg PO Q8H PRN 6 tabs 0RF Pain Coding Level of Care Code Est Pt Level 3 (46076) Diagnoses Acute cystitis without hematuria N30.00 Urinary tract infection type: acute cystitis Hematuria presence: without hematuria
[2024-06-01 15:35] VITALS: BP 126/80; PULSE 81; O2SAT 98
== END 2024-06-01 15:59 | disposition home or self-care (01) ==
PROVIDERS: PCP Nurse Practitioner Family; Visit Provider Physician Assistant
DX: N30.00 Acute cystitis without hematuria (principal); Z13.9 Encounter for screening, unspecified

== ENCOUNTER → 2024-06-01 15:25 | Outpatient (BNVA) | payer OTHER, SELFPAY | PROVIDERS: PCP Nurse Practitioner Family | DX: N30.00 Acute cystitis without hematuria (principal) | CPT/HCPCS: 81003 ==

== ENCOUNTER 2024-08-05 10:59 | Outpatient (REF) | payer OTHER, SELFPAY ==
[2024-08-05 11:14] LABS: MANUAL DIFF FLAG NO
[2024-08-05 11:41] LABS: Basophils Absolute Auto 0.1 X10*3/uL (0.0-0.2); Basophils Percent Auto 0.9 % (0-2); Eosinophils Absolute Auto 0.2 X10*3/uL (0.0-0.4); Eosinophils Percent Auto 2.2 % (0-4); Hematocrit 47.5 % (37.0-47.0); Hemoglobin 16.2 g/dl (12.0-16.0); Imm Gran Abs Auto 0.03 X10*3/uL (0.00-0.03); Imm Gran Pct Auto 0.3 % (0.0-0.4); Lymphocytes Absolute Auto 3.5 X10*3/uL (1.2-4.9); Lymphocytes Percent Auto 36.6 % (20-40); Mean Corpuscular HGB Conc 34.1 g/dl (31.0-35.0); Mean Corpuscular Hemoglobin 29.6 pg (27.0-33.0); Mean Corpuscular Volume 86.7 fL (80.0-98.0); Mean Platelet Volume 9.6 fL (9.4-12.3); Monocytes Absolute Auto 0.8 X10*3/uL (0.1-1.2); Monocytes Percent Auto 7.9 % (2-11); Neutrophils Percent Auto 52.1 % (45-73); Platelet Count 336 X10*3/uL (160-400); Red Blood Count 5.48 X10*6/uL (4.20-5.50); Red Cell Distribution Width 12.7 % (11.0-16.0); White Blood Count 9.6 X10*3/uL (4.8-10.8)
[2024-08-05 11:48] LABS: Estimated Average Glucose 117 mg/dL; Hemoglobin A1C 158.3027 umol/L; Hemoglobin A1c % 5.7 % (<6.0); Total Hemoglobin (HGBA1C) 4121.4374 umol/L
[2024-08-05 12:09] LABS: Appearance Urine Clear; Color Urine Yellow; Glucose Urine UA Negative (Negative); Leukocyte Esterase Urine Negative (Negative); Nitrite Urine Negative (Negative); Specific Gravity - Urine 1.025 (1.005-1.025); Urine Blood Negative (Negative); Urine Ketones Negative (Negative); Urine Protein Negative (Neg-Trace)
[2024-08-05 12:41] LABS: Alanine Aminotransferase 40 U/L (0-31); Albumin Level 4.3 g/dL (3.5-5.0); Alkaline Phosphatase 74 U/L (39-117); Anion Gap 11 (12-20); Aspartate Amino Transferase 25 U/L (5-31); Bilirubin Total 0.4 mg/dL (0.0-1.0); Blood Urea Nitrogen 21 mg/dL (9-16); Calcium 10.2 mg/dL (8.4-10.2); Carbon Dioxide 32 mmol/L (22-29); Chloride 101 mmol/L (96-108); Cholesterol 162 mg/dL (<200); Estimated Glomerular Filt Rate > 60; Glucose Fasting 95 mg/dL (60-99); HDL Cholesterol 58 mg/dL (>40); LDL Cholesterol Calculated 85 mg/dL (<100); Potassium 3.3 mmol/L (3.3-5.1); Sodium 141 mmol/L (135-145); Total Protein 7.3 g/dL (6.5-8.0); Triglycerides 96 mg/dL (<150)
[2024-08-05 14:40] LABS: Creatinine Urine 192.29 mg/dL; Microalbum/Creatinine Ratio Ur 6.2 ug/mg cr (<30)
== END 2024-08-05 11:00 | disposition home or self-care (01) ==
LOC: HO.LAB 10:59
PROVIDERS: PCP Nurse Practitioner Family; Visit Provider Nurse Practitioner Family
DX: E11.9 Type 2 diabetes mellitus without complications (principal); E55.9 Vitamin D deficiency, unspecified
CPT/HCPCS: 36415; 80053; 80061; 81003; 82043; 82306; 82570; 83036; 84443; 85025

== ENCOUNTER 2024-08-07 13:55 | Outpatient (AMB) | payer OTHER, SELFPAY ==
--- NOTE | 2024-08-07 13:58 | A.OFFPC_ITS ---
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 Accompanied by: Self / Same As Patient Allergies tramadol [TRAMADOL] Allergy (Severe, Verified 08/07/24 16:33) ITCHING adhesive tape [ADHESIVE TAPE] Allergy (Intermediate, Verified 08/07/24 16:33) RASH codeine [Codeine] Allergy (Unknown, Verified 08/07/24 16:33) CHEST PAIN diltiazem [Cardizem] Allergy (Unknown, Verified 08/07/24 16:33) Unknown ketorolac [From TORADOL] Allergy (Unknown, Verified 08/07/24 16:33) ITCHING morphine Allergy (Unknown, Verified 08/07/24 16:33) aggitation Medication List - Last Reconciled 08/07/24 by DONYA Duarte- amlodipine 2.5 mg PO DAILY 90 days dicyclomine 20 mg PO ONCE estradiol 0.01%(0.1mg/gram) vaginal hydrochlorothiazide 50 mg PO DAILY 90 days lansoprazole 30 mg PO BID Mounjaro (tirzepatide) 7.5 mg (0.5 mL) subcut QWEEK NS omega 4-nvv-osx-fish oil 1,000 (120-180) mg (Fish Oil) 1 cap PO DAILY rosuvastatin 20 mg PO DAILY Tobacco use date assessed: 09/29/23 Dental Screening Dental Screen Date: 09/29/23 HPI 4 mon f/u HPI Details Chief Complaint Patient requests an assessment of recent lab results and seeks advice for managing family stressors. diabetes History of Present Illness The patient is a 54-year-old female presenting with concerns regarding recent lab results and the management of personal stressors. Lab results show fluctuating white blood cell counts, which have normalized, and slightly elevated hemoglobin and hematocrit levels, considered within her usual range (sees hematology). The patient previously experienced a 23-point decrease in liver function test results, noted as an improvement, and her LDL cholesterol decreased from 105 to 85, potentially due to dietary changes and intermittent adherence to prescribed medication. The patient reports experiencing stress and fatigue, largely attributed to caring for her father, who has progressed pulmonary fibrosis, and her role in assisting with her 's management of diabetes following a shoulder injury. Pt is a well controlled diabetic, denies any neuropathy, polydipsia, polyuria. 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 - The patient has family responsibilitie s, including caring for her father with pulmonary fibrosis. - The patient has intermittent adherence to medication for hyperlipidemia, with improvements in LDL levels noted. - The patient's has health issue s, including diabetes and previous shoulder injury, contributing to family stress. Health Maintenance - LDL cholesterol decreased from 105 to 85. - Pulmonary function consideration for t he father with 24/7 oxygen dependency. - Annual colonoscopy completed, repeat s cheduled in five years (will check this with her GI specialist). Review of Systems - General: Reports feeling stressed and fatigued. - Cardiovascular: Denies chest pain, lu rtness of breath, numbness or tingling. - Neurological: Reports headaches. - Musculoskeletal: Reports leg aches 3-4 times weekly. Physical Exam General: Cooperative, healthy appearing, comfortable, no acute distress and well developed Orientation: Patient oriented x3 Limitations: No limitations Head: Normal to inspection Ears: Hearing grossly normal bilaterally Nose: Normal external nose present Face and sinus: Normal facial exam Eyes: Appearance normal, both eyes and all related structures Neck: Normal visual inspection and Yes full ROM Respiratory: Normal respiratory effort and able to speak in complete sentences. Clear to auscultation bilaterally Cardiovascular: Regular rate and rhythm. Normal S1 and S2 GI: Normal to inspection. Soft to palpation and nontender Skin: No rashes or lesions noted Neuro: Patient oriented x3, feet intact, + sensation with use of monofilament Extremities: Normal to inspection Results - Labs: Normal white blood cell count; e levated hemoglobin and hematocrit noted. - LDL cholesterol decreased from 105 to 85 mg/dL. - Liver function test decreased by 23 po ints, showing improvement. Plan - Monitor white blood cell counts and he moglobin/hematocrit levels over time. - Continue current lifestyle adjustments contributing to improved LDL chol esterol levels. - Address stress management techniques, potentially considering professional counseling. - Advise on intermittent adherence to me dication regimen for hyperlipidemia. - Provide support and discuss the manage ment of family stress, including the father's pulmonary fibrosis and 's diabetes management. Patient was informed and verbally consented to the use of an ambient scribe for clinic note documentation during this visit. Discussion Notes In my discussion with the patient, we reviewed her recent laboratory findings, noting the normalization of her white blood cell counts and improvements in liver function and LDL cholesterol levels. We discussed the importance of consistent medication adherence to maintain these improvements. I emphasized the impact of her current stressors, including her father's illness and 's health issues, on her overall well-being. We explored possible management strategies for stress, including potential professional counseling, to better support her health. I also addressed the impact of these stressors on her responsibilities at work and offered support for navigating work-life balance where possible. Patient Instructions - Continue dietary modifications and med ication for hyperlipidemia. - Practice stress-reduction techniques a nd consider professional support. - Schedule follow-up for additional test ing (if recommended) per emergency medical tech's advice. - Monitor and document any changes in yo ur stress level or any persistent fatigue symptoms. - Maintain communication with healthcare providers regarding any changes in family medical history, particularly your father and . [facility] Medical History HLD (hyperlipidemia) Hypertension Transaminitis T2DM (type 2 diabetes mellitus) Concussion KIMMY positive Abnormal EKG HLD (hyperlipidemia) Right cervical radiculopathy Right shoulder tendonitis Surgical History History of suburethral sling procedure Hx of cardiac cath (~10/2017) History of hysterectomy Hx of cholecystectomy Family History Father CAD (coronary artery disease) PVD (peripheral vascular disease) HTN (hypertension) Hyperlipidemia Myocardial infarction Mother HTN (hypertension) CLL (chronic lymphocytic leukemia) Sister No problems noted. Son No problems noted. Social History Housing: House Alcohol intake: current Alcohol intake frequency: holidays/special occasions only Patient Tobacco Use Status: Never used Tobacco e-Cigarette/Vaping Use: Never Used Second Hand Smoke Exposure: No service: No Current occupational status: employed Current occupation: [email or web address] Current occupational exposures/hazards: Yes Cognitive needs: No Hearing needs: No Vision needs: No Questionnaire Thrive Questionnaire Date Thrive assessed: 09/29/23 I am a: Patient What is your living situation today?: I have a steady place to live Within the past 12 months, did the food you bought not last and you didn't have the money to get more?: Never true Within the past 12 months, did you worry whether your food would run out before you got money to buy more?: Never true Do you have trouble paying for medicines?: No Do you have trouble getting transportation to medical appointments?: No Do you have trouble paying your heating and electricity bill?: No Do you have trouble taking care of your child, family member or friend?: No Do you have trouble with day-to-day activities such as bathing, preparing meals, shopping, managing finances, etc.?: No Are you currently unemployed and looking for a job?: No Are you interested in more education?: No Please select the resources that you would like help with: None Currently or been in a relationship where the following occur: No concerns reported THRIVE Score: 0 AUDIT C Alcohol Use Questionnaire (AUDIT-C) 1. How often do you have a drink containing alcohol?: 2-4 times a month 2. How many drinks containing alcohol do you have on a typical day when you are drinking?: 1 or 2 3. How often do you have six or more drinks on one occasion?: Never Total Score: 2 JUDY-7 AMB Questionnaire JUDY-7 Date JUDY - 7 assessed: 09/29/23 Feeling nervous, anxious, or on edge: 0 = Not at all Not being able to stop or control worryin = Not at all Worrying too much about different things: 0 = Not at all Trouble relaxin = Not at all Being so restless that it is hard to sit still: 0 = Not at all Becoming easily annoyed or irritable: 0 = Not at all Feeling afraid as if something awful might happen: 0 = Not at all Total JUDY-7 score (0-4 normal; 5-9 mild; 10-14 moderate; 15-21 severe): 0 Source: Developed by Drs. Coleman Manzo, Sofia Ruiz, Micheal Bhatia and colleagues, with an educational kelsy from [email or web address]. Physical exam (Primary Care) Vital Signs: Last Vital Signs Pulse 78 08/07/24 14:00 BP 122/80 08/07/24 14:00 Pulse Ox 97 08/07/24 14:00 Oxygen Delivery Method Room Air 08/07/24 14:00 BMI result Body Mass Index 32.8 Tobacco/Smoking Status: Tobacco use Status Tobacco use date assessed 09/29/23 08/07/24 14:00 Patient Tobacco Use Status Never used Tobacco 08/07/24 14:00 e-Cigarette/Vaping Use Never Used 08/07/24 14:00 Thrive Assessment: Date of Thrive Assessment Date Thrive assessed 09/29/23 08/07/24 14:00 Currently or been in a relationship where the following occur: No concerns reported Coding Level of Care Code Est Pt Level 3 (94171) Diagnoses T2DM (type 2 diabetes mellitus) E11.9 Assessment & Plan Assessment & Plan (1) T2DM (type 2 diabetes mellitus): Code(s): E11.9 - Type 2 diabetes mellitus without complications Category: Medical Plan .
[2024-08-07 14:00] VITALS: BP 122/80; PULSE 78; O2SAT 97; BMI 32.8
== END 2024-08-07 15:10 | disposition home or self-care (01) ==
PROVIDERS: PCP Nurse Practitioner Family; Visit Provider Nurse Practitioner Family
DX: E11.9 Type 2 diabetes mellitus without complications (principal)

== ENCOUNTER → 2024-08-07 13:55 | Outpatient (BNVA) | payer OTHER, SELFPAY | PROVIDERS: PCP Nurse Practitioner Family; Visit Provider Nurse Practitioner Family ==

== ENCOUNTER 2024-08-11 14:49 | Outpatient (AMB) | payer OTHER, SELFPAY ==
--- NOTE | 2024-08-11 15:51 | MHC.OFFWIV ---
Intake Vital Signs 08/11/24 15:59 Weight 191 lb BP 114/78 Blood Pressure Location Lt brachial Position Sitting Pulse 81 Pulse Source Pulse Oximeter Temp 98.0 F Temp Source Oral Pulse Oximetry (%) 98 Oxygen Delivery Method Room Air Intake Visit Reasons: EP Upper Respiratory Symptoms Intake Note: Patient here for cough, chest pressure and slight sinus pressure that started Wednesday. Patient Tobacco Use Status: Never used Tobacco Allergies tramadol [TRAMADOL] Allergy (Severe, Verified 08/11/24 16:00) ITCHING adhesive tape [ADHESIVE TAPE] Allergy (Intermediate, Verified 08/11/24 16:00) RASH codeine [Codeine] Allergy (Unknown, Verified 08/11/24 16:00) CHEST PAIN diltiazem [Cardizem] Allergy (Unknown, Verified 08/11/24 16:00) Unknown ketorolac [From TORADOL] Allergy (Unknown, Verified 08/11/24 16:00) ITCHING morphine Allergy (Unknown, Verified 08/11/24 16:00) aggitation Do you need a note to return to daycare/school/sports/work: No HPI HPI Comments History of Present Illness Details History The patient is a 54-year-old female presenting with symptoms indicative of sinusitis. She reports symptom onset occurring on Wednesday, following a routine six-month appointment on Wednesday, during which she felt an illness was developing. The symptoms intensified over the following days, including sinus pressure, headache, dental pain, and a progressive infection into her chest. The patient notes intermittent shortness of breath but denies wheezing. 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 She frequently experiences ear infections, and during this examination, one ear was noted as infected, with both showing signs of fluid presence. The ear infections are likely associated with a concurrent cold. The patient's history includes recurrent pharyngitis, which resolved after a tonsillectomy. She also reports a familial connection to pulmonary fibrosis, as her father is affected, necessitating caution during upcoming family gatherings. There are concerns regarding her father?s health, which significantly impact her stress levels. She experiences a fear of transmitting bacterial infections to her immunocompromised father during her visit to him. Physical Exam General: Cooperative, healthy appearing, comfortable and no acute distress Orientation/consciousness: Patient oriented x3 Limitations: No limitations Head: Normal to inspection Ears: Hearing grossly normal bilaterally, external ears normal and TM's bilaterally purulent effusion Nose: Normal external nose present, Normal nares present and No nasal discharge present Face and sinus: Normal facial exam and Sinuses tender Mouth: Normal oral and palatal mucosa present and moist mucous membranes Throat: Yes tonsils normal, Yes uvula midline. Posterior oropharynx erythema Eyes: Appearance normal, both eyes and all related structures Neck: Normal visual inspection Respiratory: Clear to auscultation bilaterally. Normal respiratory effort, able to speak in complete sentences, Actively coughing, no respiratory distress, not tachypneic, no tripod positioning and no use of accessory muscles Cardiovascular: Regular rate and rhythm. Normal S1 and S2 Skin: No rashes or lesions noted Neuro: Patient oriented x3 Extremities: Normal to inspection and Yes no clubbing, cyanosis or edema PFSH Medical History HLD (hyperlipidemia) Hypertension Transaminitis T2DM (type 2 diabetes mellitus) Concussion KIMMY positive Abnormal EKG HLD (hyperlipidemia) Right cervical radiculopathy Right shoulder tendonitis Surgical History History of suburethral sling procedure Hx of cardiac cath (~10/2017) History of hysterectomy Hx of cholecystectomy Family History Father CAD (coronary artery disease) PVD (peripheral vascular disease) HTN (hypertension) Hyperlipidemia Myocardial infarction Mother HTN (hypertension) CLL (chronic lymphocytic leukemia) Sister No problems noted. Son No problems noted. Social History Housing: House Alcohol intake: current Alcohol intake frequency: holidays/special occasions only Patient Tobacco Use Status: Never used Tobacco e-Cigarette/Vaping Use: Never Used Second Hand Smoke Exposure: No service: No Current occupational status: employed Current occupation: [employer] Current occupational exposures/hazards: Yes Cognitive needs: No Hearing needs: No Vision needs: No Review of Systems Const All systems reviewed & are unremarkable except as noted in HPI and below Physical Exam Vital Signs: Last Vital Signs Temp 98.0 F 08/11/24 15:59 Pulse 81 08/11/24 15:59 BP 114/78 08/11/24 15:59 Pulse Ox 98 08/11/24 15:59 Oxygen Delivery Method Room Air 08/11/24 15:59 Assessment & Plan Assessment & Plan (1) URI, acute: Code(s): J06.9 - Acute upper respiratory infection, unspecified Plan: - As pt is going to visit her father who is very ill with pulmonary fibrosis, I was cautious and aggressive with antibiotic coverage to ensure if it is bacterial, she has full coverage abx before seeing him next week. See below for plan. - Prescribed Augmentin to treat bacterial components suspected in sinusitis and otitis media. - Prescribed Zithromax Z-Ezra for additional coverage of atypical respiratory bacteria due to patient?s frequent interaction with children, if necessary. - Administer rapid tests for Influenza, COVID-19, and Respiratory Syncytial Virus to rule out these viral causes before patient visits her father. - Advise use of an N95 mask around her father, given his pulmonary fibrosis, to prevent transmission of potential infections. - Discuss side effects such as potential yeast infections linked with antibiotic use, and sent RX for diflucan if she develops one. - Patient to be advised on the risk of bacterial transmission, especially in the context of ongoing personal and familial health challenges. Patient was informed and verbally consented to the use of an ambient scribe for clinic note documentation during this visit (2) Otitis media: Code(s): H66.90 - Otitis media, unspecified, unspecified ear Qualifiers: Otitis media type: suppurative Laterality: bilateral Recurrence: non-recurrent Spontaneous tympanic membrane rupture: without spontaneous rupture Chronicity: acute Qualified Code(s): H66.003 - Acute suppurative otitis media without spontaneous rupture of ear drum, bilateral Plan: as above Orders: Orders SARS-CoV2/FLU/RSV Today J06.9 - Acute upper respiratory infection, unspecified Medications: New azithromycin For 250 mg dose pack: take 500 mg today (day 1), then 250 mg for 4 days (days 2-5) PO 6 tabs 0RF amoxicillin-pot clavulanate 875-125 mg 1 tab PO Q12H 10 tabs 0RF fluconazole may repeat second dose 72 hrs after first dose if symptoms persist 150 mg PO Q3D 2 tabs 0RF Coding Level of Care Code Est Pt Level 4 (18673) Diagnoses URI, acute J06.9 Non-recurrent acute suppurative otitis media of both ears without spontaneous rupture of tympanic membranes H66.003 Otitis media type: suppurative Laterality: bilateral Recurrence: non-recurrent Spontaneous tympanic membrane rupture: without spontaneous rupture Chronicity: acute
[2024-08-11 15:59] VITALS: BP 114/78; PULSE 81; TEMP 36.7; O2SAT 98
== END 2024-08-11 16:46 | disposition home or self-care (01) ==
PROVIDERS: PCP Nurse Practitioner Family; Visit Provider Physician Assistant
DX: J06.9 Acute upper respiratory infection, unspecified (principal); H66.003 Acute suppurative otitis media without spontaneous rupture of ear drum, bilateral

== ENCOUNTER 2024-08-11 14:49 | Outpatient (REF) | payer OTHER, SELFPAY ==
[2024-08-12 12:36] LABS: Influenza A PCR NEGATIVE (Negative); Influenza B PCR POSITIVE (Negative); Resp Syncy Virus RNA Qual PCR NEGATIVE (Negative); SARS COV2 PCR INHOUSE NEGATIVE (Negative)
== END 2024-08-11 14:50 | disposition home or self-care (01) ==
LOC: HO.LNP 14:49
PROVIDERS: PCP Nurse Practitioner Family; Visit Provider Physician Assistant
DX: J06.9 Acute upper respiratory infection, unspecified (principal)
CPT/HCPCS: 0241U

== ENCOUNTER 2024-09-25 13:48 | Outpatient (AMB) | payer OTHER, SELFPAY ==
[2024-09-25 13:49] VITALS: BP 120/70; PULSE 78; BMI 32.5
--- NOTE | 2024-09-25 13:49 | MHC.OFFVIS ---
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 Allergies tramadol [TRAMADOL] Allergy (Severe, Verified 08/11/24 16:00) ITCHING adhesive tape [ADHESIVE TAPE] Allergy (Intermediate, Verified 08/11/24 16:00) RASH codeine [Codeine] Allergy (Unknown, Verified 08/11/24 16:00) CHEST PAIN diltiazem [Cardizem] Allergy (Unknown, Verified 08/11/24 16:00) Unknown ketorolac [From TORADOL] Allergy (Unknown, Verified 08/11/24 16:00) ITCHING morphine Allergy (Unknown, Verified 08/11/24 16:00) aggitation Medication List - Last Reconciled 09/25/24 by Brett Evans MD amlodipine 2.5 mg PO DAILY 90 days dicyclomine 20 mg PO ONCE estradiol 0.01%(0.1mg/gram) vaginal fluconazole 150 mg PO Q3D hydrochlorothiazide 50 mg PO DAILY 90 days lansoprazole 30 mg PO BID Mounjaro (tirzepatide) 7.5 mg (0.5 mL) subcut QWEEK NS rosuvastatin 20 mg PO 4XW HPI Comments Details: Moriah comes for follow-up. She has been doing well from cardiac perspective. Been taking Crestor 20 mg 4 times a week due to muscle aches. She says she can not take it every day basis. Her last LDL was 85 mg/dL. She denies any symptoms of palpitations. No lightheadedness, syncope. No exertional chest pain. No issues with blood pressure. Takes all her other medications well. She is currently on a weight lowering therapy in his lost weight. Her diabetes under better control. [facility] Medical History HLD (hyperlipidemia) Hypertension Transaminitis T2DM (type 2 diabetes mellitus) Concussion KIMMY positive Abnormal EKG HLD (hyperlipidemia) Right cervical radiculopathy Right shoulder tendonitis Surgical History History of suburethral sling procedure Hx of cardiac cath (~10/2017) History of hysterectomy Hx of cholecystectomy Family History Father CAD (coronary artery disease) PVD (peripheral vascular disease) HTN (hypertension) Hyperlipidemia Myocardial infarction Mother HTN (hypertension) CLL (chronic lymphocytic leukemia) Sister No problems noted. Son No problems noted. Social History Housing: House Alcohol intake: current Alcohol intake frequency: holidays/special occasions only Patient Tobacco Use Status: Never used Tobacco e-Cigarette/Vaping Use: Never Used Second Hand Smoke Exposure: No service: No Current occupational status: employed Current occupation: [employer] Current occupational exposures/hazards: Yes Cognitive needs: No Hearing needs: No Vision needs: No Review of Systems Const Denies chills, Denies fatigue, Denies fever(s), Denies frequent falls, Denies weakness, Denies weight gain and Denies weight loss ENT Denies dizziness Card Denies chest pain, Denies leg edema, Denies lightheadedness, Denies palpitations, Denies dyspnea, Denies dyspnea on exertion, Denies orthopnea and Denies other (loss of consciousness) Resp Denies cough, Denies dyspnea and Denies dyspnea on exertion GI Denies hematochezia and Denies change in stool character Musc Denies abnormal gait, Denies muscle weakness, Denies numbness, Denies radiating pain into limb and Denies tingling Neuro Denies abnormal gait, Denies dizziness, Denies frequent falls, Denies numbness, Denies tingling and Denies weakness Endo Denies fatigue and Denies palpitations Physical Exam Vital Signs: Last Vital Signs Pulse 78 09/25/24 13:49 BP 120/70 09/25/24 13:49 BMI result Body Mass Index 32.5 Const General: cooperative, healthy appearing, comfortable and no acute distress Orientation/consciousness: patient oriented x3 Eyes Sclerae: sclerae normal Neck Neck: Yes normal visual inspection and Yes no JVD Carotids: normal carotid upstroke Chest Chest palpation & inspection: normal inspection of the chest Resp Effort & Inspection: normal respiratory effort Auscultation: clear to auscultation bilaterally, no crackles, no rales, no rhonchi and no wheezes Cardio Jugular venous distension: no JVD Rate: regular rate Rhythm: regular rhythm Heart sounds: S1 normal heart sound present, S2 normal heart sound present, no gallops, no murmurs and no rubs Peripheral pulses: Peripheral pulses 2+ throughout GI Inspection: Yes normal to inspection Skin General skin exam: no rashes or lesions noted Neuro General: patient oriented x3 Extrem General: Yes normal to inspection, No no pedal edema and No calf tenderness Office Procedures EKG Details: EKG shows normal sinus rhythm with low-voltage QRS with poor R-wave progression suggesting anterolateral infarct as well as Q-waves in inferior leads suggestive of inferior infarct. Abnormal EKGs unchanged from before [id number], Complete Assessment & Plan Assessment & Plan (1) CAD (coronary artery disease): Comment: mild nonobstructive Code(s): I25.10 - Atherosclerotic heart disease of [place] coronary artery without angina pectoris Category: Medical Plan: CAD nonobstructive without any new symptoms. Also has presence of abdominal aortic aneurysm are suggestive of atherosclerotic disease. Importance of aggressive risk factor modification was discussed most importantly pursuing lipid modification. Will switch to rosuvastatin 10 mg and ezetimibe 10 mg daily. Follow-up lipid panel along with not well risk factors in 3 months time and guide further therapy. Continue aggressive blood pressure control as well as diabetes control. Goal hemoglobin A1c less than 7%. Encouraged to continue to participate in aggressive weight loss program. (2) Hypertension: Code(s): I10 - Essential (primary) hypertension Category: Medical Plan: Hypertension which is currently well optimized on current therapy. Importance of good blood pressure control was discussed. Target goal blood pressure less than 130/84. Continue current hydrochlorothiazide therapy as well as amlodipine therapy. Low-salt diet was discussed. Continue participate in aggressive weight loss program. Importance of regular physical activity was discussed. Follow up in the clinic in 1 year's time, sooner p.r.n.. Thank you for allowing me to partake in his care Orders: Orders Lipoprotein A 3 Months I25.10 - Atherosclerotic heart disease of [place] coronary artery without angina pectoris Apolipoprotein B 3 Months I25.10 - Atherosclerotic heart disease of [place] coronary artery without angina pectoris CRP High Sensitivity 3 Months E78.5 - Hyperlipidemia, unspecified, I25.10 - Atherosclerotic heart disease of [place] coronary artery without angina pectoris Lipid Panel 3 Months I25.10 - Atherosclerotic heart disease of [place] coronary artery without angina pectoris Medications: New ezetimibe 10 mg PO DAILY 90 tabs 2RF rosuvastatin (Crestor) 10 mg PO DAILY 90 tabs 2RF Coding Level of Care Code Est Pt Level 4 (53201) Complex EM visit Add On G2211 Diagnoses CAD (coronary artery disease) I25.10 Hypertension I10 CPT Codes EKG - CPT: 34530-[id number], Complete ([id number])
--- OUTSIDE RECORDS SUMMARY | 2024-09-25 15:17 | XMS_ITS | Encounter Summary ---
Author Organization [facility] Address [address] [place] [address] Care Team Providers Care Shield Cleaner Name Role Phone Kenneth Melendez NP Primary Care Provider Reason for Visit * Reason Comments GERD Irritable Bowel Syndrome Encounter Details Date Type Department Care Team (Latest Contact Info) Description 09/06/2024 2:45 PM EST Office Visit Gastroenterology - [address] [phone] Chio Bender MD [address] [address] Gastroesophageal reflux disease without esophagitis (Primary Dx); Irritable bowel syndrome with constipation Social History Tobacco Use Types Packs/Day Years Used Date Smoking Tobacco: Never Smokeless Tobacco: Never Tobacco Cessation:Counseling Given: Not Answered Alcohol Use Standard Drinks/Week Comments Yes 0 (1 standard drink = 0.6 oz pur e alcohol) sociAL Sex and Gender Information Value Date Recorded Sex Assigned at Not on file Gender Identity Not on file Sexual Orientation Not on file Job Start Date Occupation Industry Not on file Not on file Not on file documented as of this encounter Last Filed Vital Signs Vital Sign Reading Time Taken Comments Blood Pressure - - Pulse - - Temperature - - Respiratory Rate - - Oxygen Saturation - - Inhaled Oxygen Concentration - - Weight 87.1 kg (192 lb) 09/06/2024 2:47 PM EST Height 162.6 cm (5' 4 ) 09/06/2024 2:47 PM EST Body Mass Index 32.96 09/06/2024 2:47 PM EST documented in this encounter Progress Notes * Chio Bendre MD - 09/06/2024 2:45 PM EST CHIEF COMPLAINT: GERD and Irritable Bowel Syndrome HPI: Moriah Thorne is a 54 y.o. old female who was originally referred to us by KENNETH MELENDEZ NP now presents to the gastroenterology department today for a follow up of GERD and constipation predominant irritable bowel syndrome. Patient was last seen in the office on 12/27/23. Her constipation was slightly worsened as she had recently started Monjaro. She was advised to use miralax on adaily basis to help control her symptoms. She has not used the MiraLAX on a daily basis and continues to suffer from inconsistent control of her constipation. She has been worried that taking the MiraLAX daily will cause uncontrollable bowel movements or urgency. Her reflux was well controlled on Pr evacid BID but if she skipped a dose she had symptoms. In the interim she underwent her surveillance colonoscopy and six small adenomatous polyps were removed. Patient states her esophageal spasms have been awful. Tried gaviscon and amlodipine without significant relief of her symptoms. She has notused her nitro sublingual recently. Episodes can occur after bought of significant reflux as well. She was diagnosed with esophageal spasms back [place] [address] Roberto. She reportedly had manometry performed at that time although I do not have those records at my disposal at this visit. ROS: GENERAL: No malaise, significant weight loss or fever HEENT: No changes in hearing or vision, nose bleeds or swallowing problems NECK: No lumps, goiter, pain or significant neck swelling RESPIRATORY: No cough, wheezing or shortness of breath CARDIOVASCULAR: No chest pain, leg swelling or palpitations GI: as per HPI MUSCULOSKELETAL: No joint pain or swelling, back pain, or muscle pain. SKIN: No lesions, rash or itching The remainder of the review of systems is reviewed and negative. PAST MEDICAL HISTORY: Past Medical History: Diagnosis Date Shah's palsy Elevated liver enzymes ALT>AST - most likely MAFLD Esophageal spasm GERD (gastroesophageal reflux disease) History of leukocytosis idiopathic- folowed by Dr. Vivar HTN (hypertension) Iron deficiency anemia Irritable bowel syndrome with constipation PAST SURGICAL HISTORY: Past Surgical History: Procedure Laterality Date BLADDER SUSPENSION 09/2015 with rectocele repair CHOLECYSTECTOMY 2013 COLONOSCOPY W/ POLYPECTOMY 06/19/2024 TA x 6 COLONOSCOPY W/ POLYPECTOMY 09/2018 TA x 1 ESOPHAGOGASTRODUODENOSCOPY 06/2016 [facility]- small HH ESOPHAGOGASTRODUODENOSCOPY 11/25/2018 small HH - no celiac, no h. Pylori ESOPHAGOGASTRODUODENOSCOPY 06/28/2002 Fel[facility] HYSTERECTOMY 09/2015 SOCIAL HISTORY: Social History Tobacco Use Smoking status: Never Smokeless tobacco: Never Substance Use Topics Alcohol use: Yes Comment: sociAL FAMILY HISTORY: Family History Problem Relation Name Age of Onset Colon polyps Sister twin ACTIVE MEDICATIONS: Current Outpatient Medications Medication Sig Dispense Refill amLODIPine (NORVASC) 2.5 mg tablet Take 1 tablet (2.5 mg total) by mouth 1 (one) time each day. dicyclomine (BENTYL) 10 mg capsule Take 1 capsule (10 mg total) by mouth 4 (four) times a day (before meals and nightly). hydroCHLOROthiazide (HYDRODIURIL) 50 mg tablet Take 1 tablet (50 mg total) by mouth 1 (one) time each day. lansoprazole (PREVACID) [address] capsule Take 1 capsule (30 mg total) by mouth 2 (two) times a day.Do not crush or chew. 180 each 3 Mounjaro 7.5 mg/0.5 mL injection rosuvastatin (CRESTOR) 20 mg tablet Take 1 tablet (20 mg total) by mouth 1 (one) time each day. No current facility-administered medications for this visit. ALLERGIES: Allergies Allergen Reactions Codeine PHYSICAL EXAM: Visit Vitals Ht 1.626 m (64 ) Wt 87.1 kg (192 lb) BMI 32.96 kg/m?? Smoking Status Never BSA 1.92 m?? APPEARANCE: Alert and in no acute distress EYES: PERRLA, conjunctiva and sclera normal. MOUTH/THROAT: no erythema or exudates NECK: Neck supple, no adenopathy HEART: RRR with normal S1 and S2, no murmurs appreciated LUNG: clear to auscultation LYMPH NODES: grossly normal ABDOMEN: soft non tender, obese, no ascites, guarding, or rebound, no organomegaly. RECTAL: Exam deferred. EXTREMITIES: Extremities warm and well perfused SKIN: Skin color, texture, turgor normal. NEURO: Awake, alert and oriented x 3 Assessment & Plan Gastroesophageal reflux disease without esophagitis Patient with breakthrough symptoms of reflux even on Prevacid twice daily. She also has described significant issues with esophageal spasms. We discussed that spasms can sometimes to be brought on byreflux or esophagitis. For that reason I have asked her to undergo an endoscopy for further evaluation. The patient is agreeable and consents to the procedure and this will be scheduled for sometime in September hopefully on her school break. In the meantime I will attempt to obtain her old manometry records. If there is no evidence of significant reflux and she does have documented esophageal spasms then other medications would be considered such as Imdur or Viagra. Irritable bowel syndrome with constipation I have again advised her to use the MiraLAX on a daily basis and to titrate for best results. I think this regimen will give her the best control of her symptoms possible. Follow up in about 6 months (around 03/06/2025). Board Certified, Gastroenterology Gastroenterology and Hepatology Practice [facility] [email or web address] [phone] [address] [email or web address] Chio Bender MD documented in this encounter Plan of Treatment Upcoming Encounters Date Type Department Care Team (Late st Contact Info) Description 10/13/2024 2:30 PM EST Appointment [facility] Endoscopy [address] [place] [phone] Chio Bender MD [address] [address] documented as of this encounter Visit Diagnoses Diagnosis Gastroesophageal reflux disease without esophagitis- Primary Esophageal reflux Irritable bowel syndrome with constipation Irritable bowel syndrome documented in this encounter Historical Medications * This list may reflect changes made after this encounter. Medication Sig Dispensed Refills Start Date End Date dicyclomine (BENTYL) 10 mg capsule Take 1 capsule (10 mg total) by mouth 4 (four) times a day (before meals and nightly). rosuvastatin (CRESTOR) 20 mg tablet Take 1 tablet (20 mg total) by mouth 1 (one) time each day. 05/28/2024 hydroCHLOROthiazide (HYDRODIURIL) 50 mg tablet Take 1 tablet (50 mg total) by mouth 1 (one) time each day. 08/25/2024 amLODIPine (NORVASC) 2.5 mg tablet Take 1 tablet (2.5 mg total) by mouth 1 (one) time each day. 08/11/2024 Mounjaro 7.5 mg/0.5 mL injection 08/28/2024 added in this encounter Care Teams Shield Cleaner Relationship Specialty Start Date End Date Kenneth Melendez NP [address] [place], [place] PCP - General Family Medicine 07/17/24 documented as of this encounter
--- OUTSIDE RECORDS SUMMARY | 2024-09-25 15:17 | XMS_ITS | Clinical Summary ---
Author Organization [facility] [address] [facility] Address [address] [place] [address] Phone Care Team Providers Care Certified Registered Dental Assistant Name Role Phone Michael Melendez NP Primary Care Provider Allergies Active Allergy Reactions Criticality Noted Date Comments Codeine 09/03/2024 Medications Medication Sig Dispensed Refills Start Date End Date Status lansoprazole (PREVACID) [address] capsuleIndications:Ga stroesophageal reflux disease without esophagitis Take 1 capsule (30 mg total) by mouth 2 (two) times a day. Do not crush or chew. 180 each 3 07/14/2024 07/14/2025 Active Mounjaro 7.5 mg/0.5 mL injection 08/28/2024 Active amLODIPine (NORVASC) 2.5 mg tablet Take 1 tablet (2.5 mg total) by mouth 1 (one) time each day. 08/11/2024 Active hydroCHLOROthiazide (HYDRODIURIL) 50 mg tablet Take 1 tablet (50 mg total) by mouth 1 (one) time each day. 08/25/2024 Active rosuvastatin (CRESTOR) 20 mg tablet Take 1 tablet (20 mg total) by mouth 1 (one) time each day. 05/28/2024 Active dicyclomine (BENTYL) 10 mg capsule Take 1 capsule (10 mg total) by mouth 4 (four) times a day (before meals and nightly). Active Encounters Date Type Department Care Team Description 09/06/2024 2:45 PM EST Office Visit Gastroenterology - [address] [place] [phone] Chio Bender MD Gastroesophageal reflux disease without esophagitis (Primary Dx); Irritable bowel syndrome with constipation 08/21/2024 Telephone Gastroenterology - [address] [place] [address] Chio Bender MD 07/10/2024 Telephone Gastroenterology - [address] [place] [phone] Chio Bender MD 07/07/2024 Telephone Gastroenterology - [address] [facility] [address] [phone] Chio Bender MD from Last 3 Months Surgical History Surgery Date Site/Laterality Comments COLONOSCOPY W/ POLYPECTOMY 06/19/2024 TA x 6 CHOLECYSTECTOMY 08/23/2013 - 08/22/2014 HYSTERECTOMY 09/23/2015 - 10/21/2015 BLADDER SUSPENSION 09/23/2015 - 10/21/2015 with rectocele repair COLONOSCOPY W/ POLYPECTOMY 09/23/2018 - 10/20/2018 TA x 1 ESOPHAGOGASTRODUODENOSCOPY 06/23/2016 - 07/22/2016 [facility]- small HH ESOPHAGOGASTRODUODENOSCOPY 11/25/2018 small HH - no celiac, no h. Pylori ESOPHAGOGASTRODUODENOSCOPY 06/28/2002 [facility] Medical History Medical History Date Comments GERD (gastroesophageal reflux disease) Irritable bowel syndrome with constipation HTN (hypertension) Esophageal spasm Shah's palsy Elevated liver enzymes ALT>AST - most likely MAFLD Iron deficiency anemia History of leukocytosis idiopath ic- folowed by Dr. Vivar Family History Medical History Relation Name Comments Colon polyps Sister twin Relation Name Status Comments Sister twin Social History Tobacco Use Types Packs/Day Years [...] file Not on file Not on file Obstetrics History Last Filed Vital Signs Vital Sign Reading Time Taken Comments Blood Pressure - - Pulse - - Temperature - - Respiratory Rate - - Oxygen Saturation - - Inhaled Oxygen Concentration - - Weight 87.1 kg (192 lb) 09/06/2024 2:47 PM EST Height 162.6 cm (5' 4 ) 09/06/2024 2:47 PM EST Body Mass Index 32.96 09/06/2024 2:47 PM EST Plan of Treatment Upcoming Encounters Date Type Department Care Team (Late st Contact Info) Description 10/13/2024 2:30 PM EST Appointment [facility] Endoscopy [address] [place] [phone] Chio Bender MD [address] [address] Health Maintenance Due Date Last Done Comments Breast Cancer Screening 1971 Diabetes: Annual GFR (Glomerular Filtration Rate) 1971 Diabetes: Annual Foot Exam 1981 Diabetes: Annual Retina Eye Exam 1981 DTaP,Tdap,and Td Vaccines (1 - Tdap) 1990 Hepatitis B Vaccines (1 of 3 - 19+ 3-dose series) 1990 Cervical Cancer Screening: P ap Smear 1992 Zoster Vaccines (1 of 2) 2021 Cholesterol Screening (Lipid Panel) 07/22/2022 02/13/2002 Depression Screening 07/22/2022 HIV Screening 07/22/2022 Hepatitis C Screening 07/22/2022 Social Influencers of Health Screening 07/22/2022 COVID-19 Vaccine (4 - 2023-2 5 season) 2024 08/28/2021, 01/15/2021, 12/24/2020 Influenza Vaccine (#1) 2024 , 06/16/2020, 07/03/2015 Diabetes: Annual Urine Albumin-Creatinine Ratio (uACR) 09/06/2024 Diabetes: Blood Sugar Contro l Test (HGBA1C) 09/06/2024 Hypertension/CHF/CAD Annual BMP Blood Test 09/06/2024 Colorectal Cancer Screening: Colonoscopy 06/19/2034 06/19/2024, 09/30/2018 HIB Vaccines Aged Out No longer eligi ble based on patient's age to complete this topic HPV Vaccines Aged Out No longer eligi ble based on patient's age to complete this topic Hepatitis A Vaccines Aged Out No long er eligible based on patient's age to complete this topic IPV Vaccines Aged Out No longer eligi ble based on patient's age to complete this topic MMR Vaccines Aged Out No longer eligi ble based on patient's age to complete this topic Meningococcal ACWY Vaccine Aged Out N o longer eligible based on patient's age to complete this topic Pneumococcal Vaccine: Pediatrics (0 to 5 Years) and At-Risk Patients (6 to 64 Years) Aged Out No longer eligible b ased on patient's age to complete this topic RSV Immunization Patients Under 20 months Aged Out No longer eligible b ased on patient's age to complete this topic Varicella Vaccines Aged Out No longer eligible based on patient's age to complete this topic Procedures Procedure Name Priority Date/Time Associated Diagnosis Comments COLONOSCOPY Routine 06/19/2024 4:01 PM EDT LIPID PANEL Routine 02/13/2002 from Last 3 Months or Most Recently Relevant to Health Maintenance Results * COLONOSCOPY (06/19/2024 4:01 PM EDT) Anatomical Region Laterality Modality Endoscopy Historical Provider GI~PROCEDURE RYLAN FULLER * Lipid panel (02/13/2002) LDL/HDL Ratio 3 1 - 4 Triglycerides 41 10 - 150 mg/dL Cholesterol 194 10 - 220 mg/dL HDL 69 32 - 96 mg/dL LDL Cholesterol 117 62 - 185 mg/dL Blood Venous blood specimen / Unknown Historical Provider LAB BLOOD ORDERAB LES from Last 3 Months or Most Recently Relevant to Health Maintenance Care Teams Certified Registered Dental Assistant Relationship Specialty Start Date End Date Michael Melendez NP [address] [facility] JANEL Ziegler PCP - General Family Medicine 07/17/24
== END 2024-09-25 14:36 | disposition home or self-care (01) ==
PROVIDERS: PCP Nurse Practitioner Family; Visit Provider Internal Medicine Cardiovascular Disease
DX: I25.10 Atherosclerotic heart disease of native coronary artery without angina pectoris (principal); I10 Essential (primary) hypertension
CPT/HCPCS: 93010; 99214

== ENCOUNTER → 2024-09-25 13:48 | Outpatient (BNVA) | payer OTHER, SELFPAY | PROVIDERS: PCP Nurse Practitioner Family; Visit Provider Internal Medicine Cardiovascular Disease | DX: I25.10 Atherosclerotic heart disease of native coronary artery without angina pectoris (principal); I10 Essential (primary) hypertension; E78.5 Hyperlipidemia, unspecified; Z79.899 Other long term (current) drug therapy | CPT/HCPCS: 93005 ==

== ENCOUNTER 2024-10-26 15:29 | Outpatient (REF) | payer OTHER, SELFPAY ==
--- OUTSIDE RECORDS SUMMARY | 2024-10-26 18:57 | XMS_ITS | Encounter Summary ---
Author Organization [facility] Address [address] [place] [address] Care Team Providers Care Farrowing Worker Name Role Phone Michael Melendez NP Primary Care Provider Encounter Details Date Type Department Care Team ([facility] st Contact Info) Description 10/13/2024 Telephone Gastroenterology - 299 [address] [facility] [address] [place] [phone] Chio Bender MD 299 [facility] [address] [place], [place] [id number] Social History Tobacco Use Types Packs/Day Years Used Date Smoking Tobacco: Never Smokeless Tobacco: Never Alcohol Use Standard Drinks/Week Comments Yes 0 (1 standard drink = 0.6 oz pur e alcohol) sociAL Comments Unknown Sex and Gender Information Value Date Recorded Sex Assigned at Not on file Legal Sex Female 3:39 PM EST Gender Identity Not on file Sexual Orientation Not on file Occupation Industry Job Start Date Job End Date 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 Pt is still receiving messages aboutprocedure from [facility] and [facility] told her she needs to call us and tell us to cancel it on our end. I don't see any active request in chart, I removed her off of mock schedule. Please double check just in case if there is an active procedure for that day. She was r/s'd for 11/17/24 at 230pm and would like to keep that appt. documented in this encounter Plan of Treatment Upcoming Encounters Date Type Department Care Team (Late st Contact Info) Description 11/17/2024 2:30 PM EDT Hospital Encounter [facility] Endoscopy [address] [place] [phone] Chio Bender MD [address] [address] documented as of this encounter Visit Diagnoses Not on filedocumented in this encounter Care Teams Farrowing Worker Relationship Specialty Start Date End Date Michael Melendez NP [address] [place], [place] PCP - General Family Medicine 07/17/24 documented as of this encounter
--- OUTSIDE RECORDS SUMMARY | 2024-10-26 18:57 | XMS_ITS | Encounter Summary ---
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 on file Travel History Travel Start Travel End [place] 09/04/2024 10/05/2024 documented as of this encounter Progress Notes * Chitra Mckenna - 10/10/2024 10:28 AM EST rescheduled * Lisa Ellis [place] - 10/10/2024 9:49 AM EST Proc 10/13/24 pt needs to r/s has been exposed to covid documented in this encounter Plan of Treatment Upcoming Encounters Date Type Department Care Team (Late st Contact Info) Description 11/17/2024 2:30 PM EDT Hospital Encounter [facility] Endoscopy [address] [place] [phone] Chio Bender MD [address] [address] documented as of this encounter Visit Diagnoses Not on filedocumented in this encounter Care Teams Laundry Or Dry Cleaners Counter Clerk Relationship Specialty Start Date End Date Michael Melendez NP [address] [place], [place] PCP - General Family Medicine 07/17/24 documented as of this encounter
--- OUTSIDE RECORDS SUMMARY | 2024-10-26 18:57 | XMS_ITS | Clinical Summary ---
Author Organization [facility] 299 [facility] Address [address] [place] [address] Phone Care Team Providers Care Round Boner Name Role Phone Michael Melendez NP Primary Care Provider Allergies Active Allergy Reactions Criticality Noted Date Comments Adhesive Rash 10/05/2024 [place] And Derivatives Other 10/05/2024 dysuria Codeine 09/03/2024 Diltiazem Hcl Swelling 08/18/2023 Other Reaction(s): retain fluid Ketorolac High 08/18/2023 Morphine 08/18/2023 Scopolamine 08/18/2023 hives Terconazole Swelling 08/18/2023 Tramadol Hives,Itching 08/18/2023 Medications lansoprazole (PREVACID) [address] capsuleIndicatio ns:Gastroesophag eal reflux disease without esophagitis Take 1 capsule (30 mg total) by mouth 2 (two) times a day. Do not crush or chew. 180 each 3 07/14/2024 07/14/20 25 Active Mounjaro 7.5 mg/0.5 mL injection 08/28/2024 Active amLODIPine (NORVASC) 2.5 mg tablet Take 1 tablet (2.5 mg total) by mouth 1 (one) time each day. 08/11/2024 Active hydroCHLOROthiaz dexter (HYDRODIURIL) 50 mg tablet Take 1 tablet [...] Encounters Date Type Department Care Team Description 10/13/2024 Telephone Gastroenterology - [address] [place] [address] [address] [place] [phone] Chio Bender MD 10/10/2024 Telephone Gastroenterology - [address] [phone] Chio Bender MD 09/06/2024 2:45 PM EST Office Visit Gastroenterology - [address] [phone] Chio Bender MD Gastroesophageal reflux disease without esophagitis (Primary Dx); Irritable bowel syndrome with constipation 08/21/2024 Telephone Gastroenterology - [address] [phone] Chio Bender MD from Last 3 Months [...] no celiac, no h. 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 Not on file Travel History Travel Start Travel End [place] 09/04/2024 10/05/2024 Obstetrics History Last Filed Vital Signs Vital [...] Description 11/17/2024 2:30 PM EDT Hospital Encounter [facility] Endoscopy [address] [place] [phone] Chio Bender MD [address] [address] Health Maintenance Due Date Last Done Comments Breast Cancer Screening 1971 Diabetes: Annual GFR (Glomerular Filtration Rate) 1971 Diabetes: Annual Foot Exam 1981 Diabetes: Annual Retina Eye Exam 1981 DTaP,Tdap,and Td Vaccines (1 - Tdap) 1990 Hepatitis B Vaccines (1 of 3 - 19+ 3-dose series) 1990 Cervical Cancer Screening: P ap Smear 1992 Pneumococcal Vaccine: 50+ Years (1 of 1 - PCV) 2021 Zoster Vaccines (1 of 2) 2021 Cholesterol [...] patient's age to complete this topic Meningococcal B Vacine Aged Out No lo nger eligible based on patient's age to complete [...] PM EDT) Anatomical Region Laterality Modality Endoscopy us Historical Provider GI~PROCEDURE ORDERABLES F inal Result * Lipid panel (02/13/2002) LDL/HDL Ratio 3 1 - 4 Triglycerides 41 10 - 150 mg/dL Cholesterol 194 10 - 220 mg/dL HDL 69 32 - 96 mg/dL LDL Cholesterol 117 62 - 185 mg/dL Blood Venous blood specimen / Unknown us Historical Provider LAB BLOOD ORDERABLES Caroline l Result from Last 3 Months or Most Recently Relevant to Health Maintenance Insurance [employer] Care Teams Round Boner Relationship Specialty Start Date End Date Michael Melendez NP [address] [place], [place] PCP - General Family Medicine 07/17/24
== END 2024-10-26 15:30 | disposition home or self-care (01) ==
LOC: HO.HMGCX 15:29
PROVIDERS: PCP Nurse Practitioner Family; Visit Provider Nurse Practitioner Family
DX: M25.512 Pain in left shoulder (principal)
CPT/HCPCS: 73030

== ENCOUNTER → 2024-10-26 15:39 | Outpatient (BNV) | payer OTHER, SELFPAY | PROVIDERS: PCP Nurse Practitioner Family; Visit Provider Radiology Diagnostic Radiology | DX: M75.32 Calcific tendinitis of left shoulder (principal) | CPT/HCPCS: 73030 ==

== ENCOUNTER 2024-12-23 10:28 | Outpatient (REF) | payer OTHER, SELFPAY ==
--- OUTSIDE RECORDS SUMMARY | 2024-12-23 10:31 | XMS_ITS | Clinical Summary ---
Author Organization [facility] 299 [facility] Address [address] [place] [address] Phone Care Team Providers Care Noxious Weeds And Pest Inspector Name Role Phone Michael Melendez NP Primary Care Provider Allergies Active Allergy Reactions Criticality Noted Date Comments Adhesive Rash 10/05/2024 [place] And Derivatives Other 10/05/2024 dysuria Codeine 09/03/2024 [...] (one) time each day. 08/11/2024 Active hydroCHLOROthiaz edxter (HYDRODIURIL) 50 mg tablet Take 1 tablet [...] Encounters Date Type Department Care Team Description 11/13/2024 Telephone Gastroenterology - 299 [address] [facility] [address] [place] [address] Chio Bender MD 10/13/2024 Telephone Gastroenterology - 299 [address] [facility] [address] [place] [phone] Chio Bender MD 10/10/2024 Telephone Gastroenterology - [address] [place] [address] [address] [place] [phone] Chio Bender MD from Last 3 Months [...] no celiac, no h. 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 Not on file Not [...] Care Team (Late st Contact Info) Description 11/24/2024 11:59 PM EDT Anesthesia Event [facility] Endoscopy [address] [place] [phone] Paz Pradhan CRNA [address] [place] [address] 02/01/2025 9:30 AM EDT Appointment [facility] Endoscopy [address] [place] [phone] Chio Bender MD [address] [address] Health Maintenance Due Date Last Done Comments [...] 2023-2 5 season) 2024 08/28/2021, 01/15/2021, 12/24/2020 Diabetes: Annual Urine Albumin-Creatinine Ratio (uACR) 09/06/2024 Diabetes: Blood Sugar Contro l Test (HGBA1C) 09/06/2024 Hypertension/CHF/CAD Annual BMP Blood Test 09/06/2024 Influenza Vaccine (Season Ended) 2025 08/05/2021, 06/16/2020, 07/03/2015 Colorectal Cancer Screening: Colonoscopy 06/19/2034 06/19/2024, 09/30/2018 [...] age to complete this topic Meningococcal B Vaccine Aged Out No l onger eligible based on patient's age to complete [...] Recently Relevant to Health Maintenance Insurance [employer] Member Subscriber Plan / Payer (Ef fective 2009-Present) Name:Moriah Awan Relation to Subscriber:Spouse Name:LARRY THORNE Date of :1960 Address: [address] [place], [place] [address] [id number] Payer ID:[id number] Type:Not on file Address: [facility] [address] [place] [phone] Care Teams Noxious Weeds And Pest Inspector Relationship Specialty Start Date End Date Michael Melendez NP [address] [place], [place] PCP - General Family Medicine 07/17/24
[2024-12-23 11:40] LABS: Alanine Aminotransferase 60 U/L (0-31); Albumin Level 4.3 g/dL (3.5-5.0); Anion Gap 12 (12-20); Aspartate Amino Transferase 29 U/L (5-31); Bilirubin Total 0.5 mg/dL (0.0-1.0); Blood Urea Nitrogen 22 mg/dL (9-16); Calcium 10.2 mg/dL (8.4-10.2); Carbon Dioxide 31 mmol/L (22-29); Chloride 103 mmol/L (96-108); Cholesterol 154 mg/dL (<200); Estimated Glomerular Filt Rate > 60; Glucose Random 96 mg/dL (60-115); HDL Cholesterol 61 mg/dL (>40); LDL Cholesterol Calculated 71 mg/dL (<100); Potassium 3.6 mmol/L (3.3-5.1); Sodium 142 mmol/L (135-145); Total Protein 7.1 g/dL (6.5-8.0); Triglycerides 111 mg/dL (<150)
[2024-12-23 13:11] LABS: Alkaline Phosphatase 91 U/L (39-117)
[2024-12-27 09:13] LABS: Lipoprotein A <10 nmol/L (<75)
[2024-12-27 11:43] LABS: Apolipoprotein B 64 mg/dL (<90)
== END 2024-12-23 10:29 | disposition home or self-care (01) ==
LOC: HO.LAB 10:28
PROVIDERS: Absent Provider Nurse Practitioner Family; PCP Nurse Practitioner Family; Visit Provider Internal Medicine Cardiovascular Disease
DX: I25.10 Atherosclerotic heart disease of native coronary artery without angina pectoris (principal); I10 Essential (primary) hypertension; E78.5 Hyperlipidemia, unspecified
CPT/HCPCS: 36415; 80053; 80061; 82172; 83695; 86141

== ENCOUNTER 2024-12-25 14:20 | Outpatient (REF) | payer OTHER, SELFPAY ==
--- OUTSIDE RECORDS SUMMARY | 2024-12-25 16:14 | XMS_ITS | Clinical Summary ---
Author Organization [facility] 299 [facility] Address [address] [place] [address] Phone Care Team Providers Care Roll Examiner Name Role Phone Michael Melendez NP Primary Care Provider Allergies Active Allergy Reactions Criticality Noted Date Comments Adhesive Rash 10/05/2024 [place] And Derivatives Other 10/05/2024 dysuria Codeine 09/03/2024 [...] 11/13/2024 Telephone Gastroenterology - [address] [facility] [address] [place] [address] Chio Bender MD 10/13/2024 Telephone Gastroenterology - 299 [address] [facility] [address] [place] [phone] Chio Bender MD 10/10/2024 Telephone Gastroenterology - [address] [place] [address] [address] [place] [phone] Chio Bender MD from Last 3 Months [...] no celiac, no h. 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
[2024-12-25 16:21] LABS: Appearance Urine Clear; Color Urine Yellow; Glucose Urine UA Negative (Negative); Leukocyte Esterase Urine Negative (Negative); Nitrite Urine Negative (Negative); Urine Blood Negative (Negative); Urine Ketones Negative (Negative); Urine Protein Negative (Neg-Trace)
== END 2024-12-25 14:21 | disposition home or self-care (01) ==
LOC: HO.HMGCLNP 14:20
PROVIDERS: PCP Nurse Practitioner Family; Visit Provider Nurse Practitioner Family
DX: N30.00 Acute cystitis without hematuria (principal)
CPT/HCPCS: 81003; 87086

== ENCOUNTER 2025-01-31 11:03 | Outpatient (AMB) | payer OTHER, SELFPAY ==
[2025-01-31 11:06] VITALS: BP 122/74; PULSE 78; O2SAT 98; BMI 33.1
--- NOTE | 2025-01-31 11:06 | A.OFFPC_ITS ---
Vital Signs 01/31/25 11:06 Height 5 ft 4 in Weight 193 lb BMI 33.1 BP 122/74 Blood Pressure Location Lt brachial Position Sitting Pulse 78 Pulse Source Pulse Oximeter Pulse Oximetry (%) 98 Oxygen Delivery Method Room Air Intake Visit Reasons: Annual PE Intake Note: pt is here for 4 month follow up Parole Agent Required: No Accompanied by: Self / Same As Patient Allergies tramadol [TRAMADOL] Allergy (Severe, Verified 01/31/25 11:07) ITCHING adhesive tape [ADHESIVE TAPE] Allergy (Intermediate, Verified 01/31/25 11:07) RASH codeine [Codeine] Allergy (Unknown, Verified 01/31/25 11:07) CHEST PAIN diltiazem [Cardizem] Allergy (Unknown, Verified 01/31/25 11:07) Unknown ketorolac [From TORADOL] Allergy (Unknown, Verified 01/31/25 11:07) ITCHING morphine Allergy (Unknown, Verified 01/31/25 11:07) aggitation Medication List - Last Reconciled 01/31/25 by DONYA Duarte- dicyclomine 20 mg PO ONCE estradiol 0.01%(0.1mg/gram) vaginal evolocumab (Repatha SureClick) 140 mg subcut Q2W hydrochlorothiazide 50 mg PO DAILY 90 days lansoprazole 30 mg PO BID tirzepatide 10 mg (0.5 mL) subcut QWEEK valsartan 80 mg PO DAILY Tobacco use date assessed: 01/31/25 Dental Screening Dental Screen Date: 01/31/25 Did you have a dental visit in the last 12 months?: Yes Did you have a dental problem in the last 6 months where you did not have access to dental care?: No Was dental information given to patient?: Patient has dentist HPI Annual PE HPI Details History of Present Illness The patient is a 54-year-old female presenting for a wellness visit and follow- up on her diabetes and esophageal spasms. Her diabetes is well controlled, evidenced by an HbA1c of 5.9%, and she reports no symptoms such as neuropathy or increased urination. She denies chest pain but notes occasional chest discomfort linked to esophageal spasms, for which she sees a airport duty manager. She is scheduled for an endoscopy and has up-to-date colonoscopy and mammogram screenings. Future labs are planned to continue monitoring her condition. Her recent foot and lung exams show no abnormalities. Health Maintenance - Up-to-date colonoscopy and mammography - Future fasting labs are planned for di abetes monitoring Social History Review of Systems - General: Denies polyuria, polydipsia. - Cardiovascular: Denies chest pain, rep orts occasional chest discomfort due to esophageal spasms. - Respiratory: Denies shortness of breat h. - Gastrointestinal: Denies abdominal [place] n, blood in stool, constipation, and diarrhea. - Neurological: Denies neuropathy. Physical Exam General: Cooperative, healthy appearing, comfortable, no acute distress and well developed Orientation: Patient oriented x3 Limitations: No limitations Head: Normal to inspection Ears: Hearing grossly normal bilaterally Nose: Normal external nose present Face and sinus: Normal facial exam Eyes: Appearance normal, both eyes and all related structures Neck: Normal visual inspection and Yes full ROM Respiratory: Normal respiratory effort and able to speak in complete sentences. Clear to auscultation bilaterally Cardiovascular: Regular rate and rhythm. Normal S1 and S2 GI: Normal to inspection. Soft to palpation and nontender : testicles without masses/lesions and no hernias appreciated Skin: No rashes or lesions noted Neuro: Patient oriented x3 Extremities: Normal to inspection. Feet were intact bilaterally. Results - Labs: HbA1c - 5.9% Plan Continued glycemic control is a primary focus in managing her Diabetes Mellitus, with lab work scheduled for monitoring. Her esophageal spasms are actively managed by a airport duty manager, with an endoscopy planned for further evaluation. Preventative screenings have been maintained current. Future fasting labs are scheduled for ongoing health management. Discussion Notes During our discussion, we focused on the patient's diabetes management, emphasizing maintaining her current glycemic control. The blood tests will continue to monitor her condition, ensuring no complications arise. We discussed the upcoming endoscopy for her esophageal spasms, as advised by her airport duty manager, addressing the future management plans depending on the test outcomes. Her preventive measures, including screening practices, were commended and reaffirmed as a crucial part of her health routine. Patient Instructions - Continue with current diabetes managem ent routine. - Attend scheduled endoscopy as planned. - Follow up for future lab work as discu ssed. - Maintain the routine health screening schedule. - Seek assistance if new symptoms miriam CHAVEZ Medical History HLD (hyperlipidemia) Hypertension Transaminitis T2DM (type 2 diabetes mellitus) Concussion KIMMY positive Abnormal EKG HLD (hyperlipidemia) Right cervical radiculopathy Right shoulder tendonitis Surgical History History of suburethral sling procedure Hx of cardiac cath (~10/2017) History of hysterectomy Hx of cholecystectomy Family History Father CAD (coronary artery disease) PVD (peripheral vascular disease) HTN (hypertension) Hyperlipidemia Myocardial infarction Mother HTN (hypertension) CLL (chronic lymphocytic leukemia) Sister No problems noted. Son No problems noted. Social History Housing: House Alcohol intake: current Alcohol intake frequency: holidays/special occasions only Patient Tobacco Use Status: Never used Tobacco e-Cigarette/Vaping Use: Never Used Second Hand Smoke Exposure: No service: No Current occupational status: employed Current occupation: [employer] Current occupational exposures/hazards: Yes Cognitive needs: No Hearing needs: No Vision needs: No Questionnaire PHQ-9 Over the last 2 weeks, how often have you been bothered by any of the following problems? 1. Little interest or pleasure in doing things: not at all 2. Feeling down, depressed, or hopeless: not at all 3. Trouble falling or staying asleep, or sleeping too much: not at all 4. Feeling tired or having little energy: not at all 5. Poor appetite or overeating: not at all 6. Feeling bad about yourself - or that you are a failure or have let yourself or your family down: not at all 7. Trouble concentrating on things, such as reading the newspaper or watching television: not at all 8. Moving or speaking so slowly that other people could have noticed. Or the opposite - being so fidgety or restless that you have been moving around a lot more than usual: not at all 9. Thoughts that you would be better off or of hurting yourself in some way: not at all Total score: 0 Depression Screening Interpretation: Negative Depression Screening Done: Yes 88142 - PHQ-9 Billing: Yes Source: Developed by Drs. Coleman Manzo, Sofia Ruiz, Micheal Bhatia and colleagues, with an educational kelsy from [employer]. Thrive Questionnaire Date Thrive assessed: 01/31/25 I am a: Patient What is your living situation today?: I have a steady place to live Within the past 12 months, did the food you bought not last and you didn't have the money to get more?: Never true Within the past 12 months, did you worry whether your food would run out before you got money to buy more?: Never true Do you have trouble paying for medicines?: No Do you have trouble getting transportation to medical appointments?: No Do you have trouble paying your heating and electricity bill?: No Do you have trouble taking care of your child, family member or friend?: No Do you have trouble with day-to-day activities such as bathing, preparing meals, shopping, managing finances, etc.?: No Are you currently unemployed and looking for a job?: No Are you interested in more education?: No Please select the resources that you would like help with: None Currently or been in a relationship where the following occur: No concerns reported THRIVE Score: 0 AUDIT C Alcohol Use Questionnaire (AUDIT-C) 1. How often do you have a drink containing alcohol?: 2-4 times a month 2. How many drinks containing alcohol do you have on a typical day when you are drinking?: 1 or 2 3. How often do you have six or more drinks on one occasion?: Never Total Score: 2 Score Reviewed/Action Taken: Yes JUDY-7 AMB Questionnaire JUDY-7 Date JUDY - 7 assessed: 01/31/25 Feeling nervous, anxious, or on edge: 0 = Not at all Not being able to stop or control worryin = Not at all Worrying too much about different things: 0 = Not at all Trouble relaxin = Not at all Being so restless that it is hard to sit still: 0 = Not at all Becoming easily annoyed or irritable: 0 = Not at all Feeling afraid as if something awful might happen: 0 = Not at all Total JUDY-7 score (0-4 normal; 5-9 mild; 10-14 moderate; 15-21 severe): 0 Source: Developed by Sofia Latif B.W. Joseph, Micheal Bhatia and colleagues, with an educational kelsy from [employer]. JUDY-7 Assessment Billing JUDY-7 Assessment Tool: JUDY-7 Assessment 52191 Physical exam (Primary Care) Vital Signs: Last Vital Signs Pulse 78 01/31/25 11:06 BP 122/74 01/31/25 11:06 Pulse Ox 98 01/31/25 11:06 Oxygen Delivery Method Room Air 01/31/25 11:06 BMI result Body Mass Index 33.1 Tobacco/Smoking Status: Tobacco use Status Tobacco use date assessed 01/31/25 01/31/25 11:08 Patient Tobacco Use Status Never used Tobacco 01/31/25 11:08 e-Cigarette/Vaping Use Never Used 01/31/25 11:08 PHQ-9: PHQ-9 Score PHQ-9: Total score 0 01/31/25 11:08 Depression Screening Interpretation: Negative Thrive Assessment: Date of Thrive Assessment Date Thrive assessed 01/31/25 01/31/25 11:08 Currently or been in a relationship where the following occur: No concerns reported Coding Level of Care Code Est Pt Prev Care 40-64y(20705) Diagnoses Physical exam Z00.00 T2DM (type 2 diabetes mellitus) E11.9 Additional Codes JUDY-7 Assessment Billing - JUDY-7 Assessment Tool: JUDY-7 Assessment 43492 ([id number]) PHQ-9 - 67360 - PHQ-9 Billing: Yes ([id number]) Assessment & Plan Assessment & Plan (1) Physical exam: Code(s): Z00.00 - Encounter for general adult medical examination without abnormal findings Category: Medical (2) T2DM (type 2 diabetes mellitus): Code(s): E11.9 - Type 2 diabetes mellitus without complications Category: Medical Plan . Orders: Orders Complete Blood Count Auto Diff Today Z00.00 - Encounter for general adult medical examination without abnormal findings Comprehensive [place]. Panel Fast Today Z00.00 - Encounter for general adult medical examination without abnormal findings TSH reflex Free T4 Today Z00.00 - Encounter for general adult medical examination without abnormal findings UA CC w/rflx Micro + Cult Today Z00.00 - Encounter for general adult medical examination without abnormal findings Lipid Panel Today Z00.00 - Encounter for general adult medical examination without abnormal findings Microalbumin, Random (w Creat) Today E11.9 - Type 2 diabetes mellitus without complications Medications: Changed From Mounjaro (tirzepatide) 7.5 mg (0.5 mL) subcut QWEEK 6 mL 1RF NS E11.9 - Type 2 diabetes mellitus without complications To tirzepatide 10 mg (0.5 mL) subcut QWEEK 2 mL 1RF E11.9 - Type 2 diabetes mellitus without complications
--- OUTSIDE RECORDS SUMMARY | 2025-01-31 12:40 | XMS_ITS | Clinical Summary ---
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 Not [...] Description 11/24/2024 11:59 PM EDT Anesthesia Event [facility] Endoscopy [address] [place] [phone] Paz Pradhan, CUBING MACHINE TENDER [address] [place] [address] 02/01/2025 9:30 AM EDT Hospital Encounter [facility] Endoscopy [address] [place] [address] Chio Bender MD [address] [address] Rosalia Walden CRNA 114 [facility] [place] [address] Health Maintenance Due Date Last Done Comments [...] Recently Relevant to Health Maintenance Insurance [facility] Care Teams Pier Master Relationship Specialty Start Date End Date Michael Melendez NP 262 [facility] [place], [place] PCP - General Family Medicine 07/17/24
== END 2025-01-31 12:32 | disposition home or self-care (01) ==
LOC: HO.HMCC 11:04
PROVIDERS: PCP Nurse Practitioner Family; Visit Provider Nurse Practitioner Family
DX: Z00.00 Encounter for general adult medical examination without abnormal findings (principal); E11.9 Type 2 diabetes mellitus without complications; Z13.9 Encounter for screening, unspecified

== ENCOUNTER → 2025-01-31 11:03 | Outpatient (BNVA) | payer OTHER, SELFPAY | PROVIDERS: PCP Nurse Practitioner Family; Visit Provider Nurse Practitioner Family | DX: Z00.00 Encounter for general adult medical examination without abnormal findings (principal); E11.9 Type 2 diabetes mellitus without complications | CPT/HCPCS: 83036; 96127 ==

== ENCOUNTER 2025-03-07 10:56 | Outpatient (REF) | payer OTHER, SELFPAY ==
--- OUTSIDE RECORDS SUMMARY | 2025-03-07 11:46 | XMS_ITS | Clinical Summary ---
Author Organization [facility] 299 [facility] Address [address] [place] [address] Phone Care Team Providers Care Plant Tender Name Role Phone Michael Melendez NP Primary Care Provider Allergies Active Allergy Reactions Criticality Noted Date Comments Adhesive Rash 10/05/2024 [place] And Derivatives Other 10/05/2024 dysuria Codeine 09/03/2024 Diltiazem Hcl Swelling 08/18/2023 Other Reaction(s): retain fluid Ketorolac High 08/18/2023 Morphine 08/18/2023 Scopolamine 08/18/2023 hives Terconazole Swelling 08/18/2023 Tramadol Hives,Itching 08/18/2023 Medications lansoprazole (PREVACID) [address] Dalia ns:Gastroesophag eal reflux disease without esophagitis Take [...] a day (before meals and nightly). Active valsartan (DIOVAN) 80 mg tablet Take 1 tablet (80 mg total) by mouth 1 (one) time each day. 01/11/2025 Active Active Problems Problem Noted Date Diagnosed Date HTN (hypertension) 02/01/2025 Gastroesophageal reflux disease 02/01/2025 Encounters Date Type Department Care Team Description 02/01/2025 9:21 AM EDT Anesthesia Event [facility] Endoscopy [address] [place] [address] Rocio Garcia MD Hard, Shannon, CRNA 02/01/2025 8:47 AM EDT - 02/01/2025 11:59 PM EDT Hospital Encounter [facility] Endoscopy [address] [place] [address] Chio Bender MD Kriz, Petra, MD Couture, Alison, CRNA Gastroesophageal reflux disease without esophagitis Discharge Disposition: Home or Self Care from Last 3 Months Surgical History Surgery [...] drink = 0.6 oz pur e alcohol) Interpersonal Safety Answer Date Record ed Physical Abuse 02/01/2025 Verbal Abuse 02/01/2025 Comments Unknown Sex and Gender Information Value Date Recorded Sex Assigned at Female 02/07/2025 11:10 AM EDT Legal Sex Female 3:39 PM EST Gender Identity Female 02/07/2025 11:10 AM EDT Sexual Orientation Straight 02/07/2025 11 :10 AM EDT Occupation Industry Job Start Date Job 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 on 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 Obstetrics History Last Filed Vital Signs Vital Sign Reading Time Taken Comments Blood Pressure 111/75 02/01/2025 9:54 AM EDT Pulse 63 02/01/2025 9:54 AM EDT Temperature 36.2 C (97.2 F) 02/01/2025 9:34 AM EDT Respiratory Rate 15 02/01/2025 9:54 AM EDT Oxygen Saturation 99% 02/01/2025 9:54 AM EDT Inhaled Oxygen Concentration - - Weight 84.4 kg (186 lb) 02/01/2025 9:13 AM EDT Height 162.6 cm (5' 4 ) 02/01/2025 9:13 AM EDT Body Mass Index 31.93 02/01/2025 9:13 AM EDT Plan of Treatment Upcoming Encounters Date Type Department Care Team (Late st Contact Info) Description 03/26/2025 8:45 AM EDT Appointment [facility] Xr [address] [place] [address] Health Maintenance Due Date Last Done Comments [...] Annual BMP Blood Test 09/06/2024 Influenza Vaccine (#1) 2025 , 06/16/2020, 07/03/2015 Colorectal Cancer Screening: Colonoscopy 06/19/2034 [...] Procedure Name Priority Date/Time Associated Diagnosis Comments EGD Routine 02/01/2025 9:33 AM EDT Gastroesophageal reflux disease without esophagitis TISSUE EXAM Routine 02/01/2025 9:27 AM EDT Gastroesophageal reflux disease without esophagitis COLONOSCOPY Routine 06/19/2024 4:01 PM EDT LIPID PANEL Routine 02/13/2002 from Last 3 Months or Most Recently Relevant to Health Maintenance Results * EGD Anesthesia - MAC; [facility] ENDOSCOPY (02/01/2025 9:33 AM EDT) Anatomical Region Laterality Modality Endoscopy 02/01/2025 9:18 AM EDT Impressions 02/01/2025 9:34 AM EDT - Medium-sized hiatal hernia. - Normal mucosa was found in the entire esophagus. Biopsied. - Normal stomach. - Normal examined duodenum. Recommendation: - Await pathology results. - Continue present medications. Narrative 02/01/2025 9:34 AM EDT [facility] GI Patient Name: Uma Thorne Procedure Date: 02/01/2025 9:18 AM Date of : 1970 Age: 54 Gender: Female Note Status: Finalized Attending MD: Chio Bender MD, Procedure Date No Time: 02/01/2025 Procedure: Upper GI endoscopy Indications: Follow-up of gastro-esophageal reflux disease Providers: Chio Bender MD Referring MD: Michael Melendez Medicines: Propofol per Anesthesia Complications: No immediate complications. Estimated Blood Loss: Estimated blood loss: none. Procedure: Pre-Anesthesia Assessment: - ASA Grade Assessment: II - A patient with mild systemic disease. After obtaining informed consent, the endoscope was passed under direct vision. Throughout the procedure, the patient's blood pressure, pulse, and oxygen saturations were monitored continuously.The Endoscope was introduced through the mouth, and advanced to the second part of duodenum. The upper GI endoscopy was accomplished without difficulty. The patient tolerated the procedure well. Findings: A medium-sized hiatal hernia was present. Normal mucosa was found in the entire esophagus. Biopsies were taken with a cold forceps for histology. The stomach was normal. The examined duodenum was normal. Procedure Code(s): --- Professional --- 59766, Esophagogastroduodenoscopy, flexible, transoral; with biopsy, single or multiple Diagnosis Code(s): --- Professional --- K44.9, Diaphragmatic hernia without obstruction or gangrene K21.9, Gastro-esophageal reflux disease without esophagitis CPT copyright 2020 [employer]. All rights reserved. The codes documented in this report are preliminary and upon carpenter and joiner review may be revised to meet current compliance requirements. Chio Bender MD 02/01/2025 9:33:57 AM This report has been signed electronically.Chio Bender MD Number of Addenda: 0 Note Initiated On: 02/01/2025 9:18 AM Scope In: Scope Out: Endoscopy Department at [facility] - [address] [place] [phone] Procedure Note Chio Bender MD - 02/01/2025 [facility] GI Patient Name: mUa Thorne Procedure Date: 02/01/2025 9:18 AM Date of : 1970 Age: 54 Gender: Female Note Status: Finalized Attending MD: Chio Bender MD, Procedure Date No Time: 02/01/2025 Procedure: Upper GI endoscopy Indications: Follow-up of gastro-esophageal reflux disease Providers: Chio Bender MD Referring MD: Michael Melendez Medicines: Propofol per Anesthesia Complications: No immediate complications. Estimated Blood Loss: Estimated blood loss: none. Procedure: Pre-Anesthesia Assessment: - ASA Grade Assessment: II - A patient with mild systemic disease. After obtaining informed consent, the endoscope was passed under direct vision. Throughout theprocedure, the patient's blood pressure, pulse, and oxygen saturations were monitored continuously.TheEndoscope was introduced through the mouth, and advanced tothe second part of duodenum. The upper GI endoscopy was accomplished without difficulty. The patienttolerated the procedure well. Findings: A medium-sized hiatal hernia was present. Normal mucosa was found in the entire esophagus. Biopsies were taken with a cold forceps forhistology. The stomach was normal. The examined duodenum was normal. Procedure Code(s): --- Professional --- 45708, Esophagogastroduodenoscopy, flexible, transoral; with biopsy, single or multiple Diagnosis Code(s): --- Professional --- K44.9, Diaphragmatic hernia without obstruction or gangrene K21.9, Gastro-esophageal reflux disease without esophagitis CPT copyright 2020 [employer]. All rights reserved. The codes documented in this report are preliminary and upon carpenter and joiner reviewmay be revised to meet current compliance requirements. Chio Bender MD 02/01/2025 9:33:57 AM This report has been signed electronically.Chio Bender MD Number of Addenda: 0 Note Initiated On: 02/01/2025 9:18 AM Scope In: Scope Out: Endoscopy Department at [facility] - [address] [place] [phone] IMPRESSION: - Medium-sized hiatal hernia. - Normal mucosa was found in the entire esophagus. Biopsied. - Normal stomach. - Normal examined duodenum. Recommendation: - Await pathology results. - Continue present medications. Chio Bender MD GI~PROCEDURE ORDERABLES Final Result * Tissue exam (02/01/2025 9:27 AM EDT) Final Diagnosis Esophagus, biopsies: Benign esophageal squamous mucosa with no specific pathologic change identified. 02/02/2025 10:58 AM EDT [facility] Gross Description A. Esophagus, biopsies: Labeled esophagus biopsies . Received in formalin are soft to friable, white-red tissue fragments, ranging from 0.2 cm to 0.5 cm, in greatest diameters, which are wrapped in paper and submitted in toto in one cassette, four pieces, multiple levels. Please note: Small tissue fragments may not survive processing. dvb/DG 02/02/2025 10:58 AM EDT [facility] Disclaimer Unless otherwise specified, all tissue is 10% NB formalin fixed and paraffin embedded. 02/02/2025 10:58 AM EDT [facility] Tissue Esophageal structure / Unknown 02/01/2025 9:27 AM EDT 02/01/2025 10:29 AM EDT Chio Bender MD LAB PATHOLOGY ORDERABLES Final Result [facility] [address] [place] [address], * COLONOSCOPY (06/19/2024 4:01 PM EDT) Anatomical Region Laterality Modality Endoscopy Historical Provider GI~PROCEDURE ORDERABLES F inal Result [...] Most Recently Relevant to Health Maintenance Insurance [facility] Care Teams Plant Tender Relationship Specialty Start Date End Date [facility] Melendez NP [facility] [place] P[facility] - General Family Medicine 07/17/24
[2025-03-07 13:43] LABS: MANUAL DIFF FLAG NO
[2025-03-07 13:58] LABS: Hematocrit 47.9 % (37.0-47.0); Hemoglobin 16.2 g/dl (12.0-16.0); Imm Gran Abs Auto 0.03 X10*3/uL (0.00-0.03); Imm Gran Pct Auto 0.3 % (0.0-0.4); Lymphocytes Absolute Auto 3.3 X10*3/uL (1.2-4.9); Mean Corpuscular HGB Conc 33.8 g/dl (31.0-35.0); Mean Corpuscular Hemoglobin 29.9 pg (27.0-33.0); Mean Corpuscular Volume 88.5 fL (80.0-98.0); NRBC Abs Auto 0.000 X10*3/uL (0.0-0.012); NRBC Pct Auto 0.0 /100WBC (0.0-0.2); Platelet Count 361 X10*3/uL (160-400); Red Blood Count 5.41 X10*6/uL (4.20-5.50); White Blood Count 8.8 X10*3/uL (4.8-10.8)
[2025-03-07 14:02] LABS: Appearance Urine Cloudy; Glucose Urine UA Negative (Negative); PH 8.0 (5.0-9.0); Specific Gravity - Urine 1.015 (1.005-1.025)
[2025-03-07 14:41] LABS: Albumin Level 4.6 g/dL (3.5-5.0); Alkaline Phosphatase 72 U/L (39-117); Anion Gap 10 (12-20); Aspartate Amino Transferase 23 U/L (5-31); Blood Urea Nitrogen 16 mg/dL (9-16); Calcium 10.3 mg/dL (8.4-10.2); Carbon Dioxide 31 mmol/L (22-29); Chloride 103 mmol/L (96-108); Cholesterol 159 mg/dL (<200); Estimated Glomerular Filt Rate > 60; HDL Cholesterol 55 mg/dL (>40); Potassium 4.1 mmol/L (3.3-5.1); Sodium 140 mmol/L (135-145); Total Protein 7.1 g/dL (6.5-8.0); Triglycerides 205 mg/dL (<150)
[2025-03-07 14:59] LABS: Alanine Aminotransferase 35 U/L (0-31)
== END 2025-03-07 10:57 | disposition home or self-care (01) ==
LOC: HO.HMGCLDS 10:56
PROVIDERS: PCP Nurse Practitioner Family; Visit Provider Nurse Practitioner Family
DX: Z00.00 Encounter for general adult medical examination without abnormal findings (principal); E11.9 Type 2 diabetes mellitus without complications
CPT/HCPCS: 36415; 80053; 80061; 81003; 82043; 82570; 84443; 85025

== ENCOUNTER 2025-03-19 13:11 | Outpatient (REF) | payer OTHER, SELFPAY ==
--- OUTSIDE RECORDS SUMMARY | 2025-03-19 13:55 | XMS_ITS | Clinical Summary ---
Author Organization [facility] 299 [facility] Address [address] [place] [address] Phone Care Team Providers Care Government Affairs Researcher Name Role Phone Michael Melendez NP Primary Care Provider Allergies Active Allergy Reactions Criticality Noted Date Comments Adhesive Rash 10/05/2024 [place] And Derivatives Other 10/05/2024 dysuria Codeine 09/03/2024 [...] Description 02/01/2025 9:21 AM EDT Anesthesia Event [facility] Endoscopy [address] [place] [address] Rocio Garcia MD Hard, Shannon, CRNA 02/01/2025 8:47 AM EDT - 02/01/2025 11:59 PM EDT Hospital Encounter [facility] Endoscopy [address] [place] [address] Chio Bender MD Kriz, Petra, MD Couture, [...] 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 Not on file Not [...] Info) Description 03/26/2025 8:45 AM EDT Appointment [facility] Xr [address] [place] [address] Health Maintenance Due Date Last [...] 2021 Cholesterol Screening (Lipid Panel) 07/22/2022 02/13/2002 HIV Screening 07/22/2022 Hepatitis C Screening 07/22/2022 Social Influencers of Health Screening 07/22/2022 COVID-19 Vaccine (2023-2 5 season) 2024 08/28/2021, 01/15/2021, 12/24/2020 Depression Screening 08/23/2024 Diabetes: Annual Urine Albumin-Creatinine Ratio (uACR) 09/06/2024 [...] Maintenance Results * EGD Anesthesia - MAC; [facility] ENDOSCOPY (02/01/2025 9:33 AM EDT) Anatomical Region Laterality Modality Endoscopy 02/01/2025 9:18 AM EDT Impressions 02/01/2025 9:34 AM EDT - Medium-sized hiatal hernia. - Normal mucosa was found in the entire esophagus. Biopsied. - Normal stomach. - Normal examined duodenum. Recommendation: - Await pathology results. - Continue present medications. Narrative 02/01/2025 9:34 AM EDT [facility] GI Patient Name: Uma Thorne Procedure [...] was normal. Procedure Code(s): --- Professional --- 14924, Esophagogastroduodenoscopy, flexible, transoral; with biopsy, single or multiple Diagnosis Code(s): --- Professional --- K44.9, Diaphragmatic hernia without obstruction or gangrene K21.9, Gastro-esophageal reflux disease without esophagitis CPT copyright 2020 [employer] [place] [employer]. All rights reserved. The codes documented in this report are preliminary and upon upstream biomanufacturing technician review may be revised to meet current compliance requirements. Chio Bender MD 02/01/2025 9:33:57 AM This report has been signed electronically.Chio Bender MD Number of Addenda: 0 Note Initiated On: 02/01/2025 9:18 AM Scope In: Scope Out: Endoscopy Department at [facility] - [address] [place] [phone] Procedure Note Chio Bender MD - 02/01/2025 [facility] GI Patient Name: Uma Thorne Procedure [...] was normal. Procedure Code(s): --- Professional --- 17426, Esophagogastroduodenoscopy, flexible, transoral; with biopsy, single or multiple Diagnosis Code(s): --- Professional --- K44.9, Diaphragmatic hernia without obstruction or gangrene K21.9, Gastro-esophageal reflux disease without esophagitis CPT copyright 2020 [employer] [place] [employer]. All rights reserved. The codes documented in this report are preliminary and upon upstream biomanufacturing technician reviewmay be revised to meet current compliance requirements. Chio Bender MD 02/01/2025 9:33:57 AM This report has been signed electronically.Chio Bender MD Number of Addenda: 0 Note Initiated On: 02/01/2025 9:18 AM Scope In: Scope Out: Endoscopy Department at [facility] - [address] [place] [phone] IMPRESSION: - Medium-sized hiatal hernia. - Normal mucosa was found in the entire esophagus. Biopsied. - Normal stomach. - Normal examined duodenum. Recommendation: - Await pathology results. - Continue present medications. Chio Bender MD GI~PROCEDURE ORDERABLES Final Result * Tissue exam (02/01/2025 9:27 AM EDT) Final Diagnosis Esophagus, biopsies: Benign esophageal squamous mucosa with no specific pathologic change identified. 02/02/2025 10:58 AM EDT [facility] Gross Description A. Esophagus, biopsies: Labeled esophagus biopsies . Received in formalin are soft to friable, white-red tissue fragments, ranging from 0.2 cm to 0.5 cm, in greatest diameters, which are wrapped in paper and submitted in toto in one cassette, four pieces, multiple levels. Please note: Small tissue fragments may not survive processing. dvb/DG 02/02/2025 10:58 AM EDT [facility] Disclaimer Unless otherwise specified, all tissue is 10% NB formalin fixed and paraffin embedded. 02/02/2025 10:58 AM EDT [facility] Tissue Esophageal structure / Unknown 02/01/2025 9:27 AM EDT 02/01/2025 10:29 AM EDT Chio Bender MD LAB PATHOLOGY ORDERABLES Final Result [facility] [address] [place] [address], * COLONOSCOPY (06/19/2024 4:01 PM EDT) Anatomical [...] Most Recently Relevant to Health Maintenance Insurance [facility] Care Teams Government Affairs Researcher Relationship Specialty Start Date End Date [facility] Melendez [facility] [place] P[facility] - General Family Medicine 07/17/24
--- OUTSIDE RECORDS SUMMARY | 2025-03-19 13:55 | XMS_ITS | Encounter Summary ---
Author Organization [facility] Address [address] [place] [phone] Phone Care Team Providers Care Maintainer Central Office Name Role Phone Michael Melendez JAVA CORE DEVELOPER Primary Care Provider + Encounter Details Date Type Department Care Team (Late st Contact Info) Description 05/10/2022 Procedure Pass [facility], Ct Scan - [address] [address] Social History Tobacco Use Types Packs/Day Years Used Date Smoking Tobacco: Never Alcohol Use Standard Drinks/Week Comments Never 0 (1 standard drink = 0.6 oz pur e alcohol) Comments Unknown Sex and Gender Information Value Date Recorded Sex Assigned at Female 05/10/2022 12:02 PM EDT Legal Sex Female 7:41 PM EST Gender Identity Female 05/10/2022 12:02 PM EDT Sexual Orientation Straight 05/10/2022 12 :02 PM EDT documented as of this encounter Functional Status * Calculated C-SSRS Risk Score (Lifetime/Recent) Answer Date of Assessment Author No Risk Indicated 05/10/2022 12:02 PM EDT Cheryl Bermudez, RN * [place] Suicide Severity Rating Scale (Screener/Recent Self-Report) Question Answer Date of Assessment Author 1. Wish to be (Past 1 Month) No 022 12:02 PM EDT Cheryl Bermudez, RN 2. Non-Specific Active Suici lia Thoughts (Past 1 Month) No 05/10/2022 12:02 PM EDT Cheryl Bermudez, RN 6. Suicidal Behavior (Lifetime) No 2 12:02 PM EDT Cheryl Bermudez RN documented as of this encounter Plan of Treatment Not on file documented as of this encounter Visit Diagnoses Not on filedocumented in this encounter Care Teams Maintainer Central Office Relationship Specialty Start Date End Date Michael Melendez NP [address] [place] [address] [email or web address] PCP - General Family Medicine 05/10/22 documented as of this encounter Additional Source Comments The information contained in this document represents components of the legal health record. It is not the complete legal health record.[facility]
[2025-03-19 16:53] LABS: Parathyroid Hormone Intact 164.3 pg/mL (8.7-77.1)
[2025-03-20 16:03] LABS: Calcium, Ionized 5.7 mg/dL (4.7-5.5)
== END 2025-03-19 13:12 | disposition home or self-care (01) ==
LOC: HO.HMGCLDS 13:11
PROVIDERS: PCP Nurse Practitioner Family; Visit Provider Nurse Practitioner Family
DX: E83.52 Hypercalcemia (principal)
CPT/HCPCS: 36415; 82306; 82330; 83970

== ENCOUNTER 2025-03-23 12:45 | Outpatient (AMB) | payer OTHER, SELFPAY ==
--- OUTSIDE RECORDS SUMMARY | 2025-03-23 12:47 | XMS_ITS | Clinical Summary ---
Author Organization [facility] 299 [facility] Address [address] [place] [address] Phone Care Team Providers Care Marine Equipment Engineer Name Role Phone Michael Melendez NP Primary Care Provider Allergies Active Allergy Reactions Criticality Noted Date Comments Adhesive Rash 10/05/2024 [place] And Derivatives Other 10/05/2024 dysuria Codeine 09/03/2024 Diltiazem Hcl Swelling 08/18/2023 Other Reaction(s): retain fluid Ketorolac High 08/18/2023 Morphine 08/18/2023 Scopolamine 08/18/2023 hives Terconazole Swelling 08/18/2023 Tramadol Hives,Itching 08/18/2023 Medications lansoprazole (PREVACID) [address] Gómez ns:Gastroesophag eal reflux disease without esophagitis Take [...] Description 02/01/2025 9:21 AM EDT Anesthesia Event [facility] Endoscopy [address] [place] [address] Rocio Garcia MD Hard, Shannon, CRNA 02/01/2025 8:47 AM EDT - 02/01/2025 11:59 PM EDT Hospital Encounter [facility] Endoscopy [address] [place] [address] Chio Bender MD Kriz, Petra, MD Couture, [...] 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 ENDOSCOPY (02/01/2025 9:33 AM EDT) Anatomical Region Laterality Modality Endoscopy 02/01/2025 9:18 AM EDT Impressions 02/01/2025 9:34 AM EDT - Medium-sized hiatal hernia. - Normal mucosa was found in the entire esophagus. Biopsied. - Normal stomach. - Normal examined duodenum. Recommendation: - Await pathology results. - Continue present medications. Narrative 02/01/2025 9:34 AM EDT [facility] GI Patient Name: Uma Thorne Procedure Date: [...] was normal. Procedure Code(s): --- Professional --- 15348, Esophagogastroduodenoscopy, flexible, transoral; with biopsy, single or multiple Diagnosis Code(s): --- Professional --- K44.9, Diaphragmatic hernia without obstruction or gangrene K21.9, Gastro-esophageal reflux disease without esophagitis CPT copyright 2020 [employer] [place] [employer]. All rights reserved. The codes documented in this report are preliminary and upon residential director review may be revised to meet current compliance requirements. Chio Bender MD 02/01/2025 9:33:57 AM This report has been signed electronically.Chio Bender MD Number of Addenda: 0 Note Initiated On: 02/01/2025 9:18 AM Scope In: Scope Out: Endoscopy Department at [facility] - [address] [place] [phone] Procedure Note Chio Bender MD - 02/01/2025 [facility] GI Patient Name: Uma Thorne Procedure Date: [...] was normal. Procedure Code(s): --- Professional --- 39600, Esophagogastroduodenoscopy, flexible, transoral; with biopsy, single or multiple Diagnosis Code(s): --- Professional --- K44.9, Diaphragmatic hernia without obstruction or gangrene K21.9, Gastro-esophageal reflux disease without esophagitis CPT copyright 2020 [employer]. All rights reserved. The codes documented in this report are preliminary and upon residential director reviewmay be revised to meet current compliance requirements. Chio Bender MD 02/01/2025 9:33:57 AM This report has been signed electronically.Chio Bender MD Number of Addenda: 0 Note Initiated On: 02/01/2025 9:18 AM Scope In: Scope Out: Endoscopy Department at [facility] - [address] [place] [phone] IMPRESSION: - Medium-sized hiatal hernia. - Normal mucosa was found in the entire esophagus. Biopsied. - Normal stomach. - Normal examined duodenum. Recommendation: - Await pathology results. - Continue present medications. Chio Bender MD GI~PROCEDURE ORDERABLES Final Result * Tissue exam (02/01/2025 9:27 AM EDT) Final Diagnosis Esophagus, biopsies: Benign esophageal squamous mucosa with no specific pathologic change identified. 02/02/2025 10:58 AM EDT [facility] Gross Description A. Esophagus, biopsies: Labeled esophagus biopsies . Received in formalin are soft to friable, white-red tissue fragments, ranging from 0.2 cm to 0.5 cm, in greatest diameters, which are wrapped in paper and submitted in toto in one cassette, four pieces, multiple levels. Please note: Small tissue fragments may not survive processing. dvb/DG 02/02/2025 10:58 AM EDT [facility] Disclaimer Unless otherwise specified, all tissue is 10% NB formalin fixed and paraffin embedded. 02/02/2025 10:58 AM EDT [facility] Tissue Esophageal structure / Unknown 02/01/2025 9:27 AM EDT 02/01/2025 10:29 AM EDT Chio Bender MD LAB PATHOLOGY ORDERABLES Final Result [facility] [address] [place] [address], * COLONOSCOPY (06/19/2024 4:01 PM EDT) Anatomical [...] Most Recently Relevant to Health Maintenance Insurance [facility] Care Teams Marine Equipment Engineer Relationship Specialty Start Date End Date [facility] Melendez NP [facility] [place] PCP - General Family Medicine 07/17/24
--- OUTSIDE RECORDS SUMMARY | 2025-03-23 12:47 | XMS_ITS | Encounter Summary ---
Author Organization [facility] Address [address] [place] [id number] Phone Care Team Providers Care Director Speech Name Role Phone Michael Melendez PLASTICS SEASONER OPERATOR Primary Care Provider + Encounter Details Date Type Department Care Team (Late st Contact Info) Description 05/10/2022 Procedure Pass [facility], Ct Scan - [address] [address] Social History Tobacco Use Types Packs/Day Years [...] 12:02 PM EDT Cheryl Bermudez, RN * [place] Suicide Severity Rating Scale (Screener/Recent Self-Report) Question [...] on filedocumented in this encounter Care Teams Director Speech Relationship Specialty Start Date End Date Michael Melendez NP [address] [place] [id number] [email or web address] PCP - General Family Medicine 05/10/22 documented as of this encounter Additional Source Comments The information contained in this document represents components of the legal health record. It is not the complete legal health record.[facility]
[2025-03-23 12:52] VITALS: BP 110/80; PULSE 72; TEMP 36.6; O2SAT 97; BMI 31.9
--- NOTE | 2025-03-23 12:52 | AM.OFFWIN_ITS ---
Intake Vital Signs 03/23/25 12:52 Height 5 ft 4 in Weight 186 lb BMI 31.9 BP 110/80 Blood Pressure Location Lt brachial Position Sitting Pulse 72 Pulse Source Pulse Oximeter Temp 97.9 F Temp Source Oral Pulse Oximetry (%) 97 Oxygen Delivery Method Room Air Intake Visit Reasons: EP UTI? Patient Tobacco Use Status: Never used Tobacco Logging Supervisor Required: No Allergies tramadol (TRAMADOL) Allergy (Severe, Verified 03/23/25 13:02) ITCHING adhesive tape (ADHESIVE TAPE) Allergy (Intermediate, Verified 03/23/25 13:02) RASH codeine (Codeine) Allergy (Unknown, Verified 03/23/25 13:02) CHEST PAIN diltiazem (Cardizem) Allergy (Unknown, Verified 03/23/25 13:02) Unknown ketorolac (From TORADOL) Allergy (Unknown, Verified 03/23/25 13:02) ITCHING morphine Allergy (Unknown, Verified 03/23/25 13:02) aggitation Do you need a note to return to daycare/school/sports/work: No HPI HPI Comments History of Present Illness Details History - The patient is a 54-year-old female pr esenting with a urinary frequency, urgency and pain. - She reports frequent urination, approx imately six times in an hour, starting two days ago. - She reports urinating more frequently and had lower back pain. - She has not taken anything for the [place] n. - Does not get her menses and has no vag inal discharge. - She denies fever, chills, nausea, or a bdominal pain but notes lower back pain. Physical Exam General: Cooperative, healthy appearing, comfortable, no acute distress and well developed Cardiac: Normal S1 and S2. RRR, no M/R/G noted. Respiratory: Normal respiratory effort and able to speak in complete sentences. Clear to auscultation bilaterally. No w/r/r noted. Skin: No rashes or lesions noted. GI: Normal inspection. Normal BS noted. Soft, non-tender, non-distended. No TTP of all 4 quadrants. No guarding or rebound tenderness noted. Back: Lower back pain noted, but no CVA tenderness bilaterally. Patient was informed and verbally consented to the use of an ambient scribe for clinic note documentation during this visit. [facility] Medical History HLD (hyperlipidemia) Hypertension Transaminitis T2DM (type 2 diabetes mellitus) Concussion KIMMY positive Abnormal EKG HLD (hyperlipidemia) Right cervical radiculopathy Right shoulder tendonitis Surgical History History of suburethral sling procedure Hx of cardiac cath (~10/2017) History of hysterectomy Hx of cholecystectomy Family History Father CAD (coronary artery disease) PVD (peripheral vascular disease) HTN (hypertension) Hyperlipidemia Myocardial infarction Mother HTN (hypertension) CLL (chronic lymphocytic leukemia) Sister No problems noted. Son No problems noted. Social History Housing: House Alcohol intake: current Alcohol intake frequency: holidays/special occasions only Patient Tobacco Use Status: Never used Tobacco e-Cigarette/Vaping Use: Never Used Second Hand Smoke Exposure: No service: No Current occupational status: employed Current occupation: [employer] Current occupational exposures/hazards: Yes Cognitive needs: No Hearing needs: No Vision needs: No Review of Systems Const All systems reviewed & are unremarkable except as noted in HPI and below Physical Exam Vital Signs: Last Vital Signs Temp 97.9 F 03/23/25 12:52 Pulse 72 03/23/25 12:52 BP 110/80 03/23/25 12:52 Pulse Ox 97 03/23/25 12:52 Oxygen Delivery Method Room Air 03/23/25 12:52 BMI result Body Mass Index 31.9 Results AMB Urinalysis, Automated UA Leukoctes 125 Luz/uL Last Edit by Elba Hammond MA on 03/23/25 13:07 UA Nitrite Positive Last Edit by Elba Hammond MA on 03/23/25 13:07 UA Urobilinogen 0.2 mg/dL Last Edit by Elba Hammond MA on 03/23/25 13:07 UA Protein 30 mg/dL Last Edit by Elba Hammond MA on 03/23/25 13:07 UA pH 6.0 Last Edit by Elba Hammond MA on 03/23/25 13:07 UA Blood 200 Jakob/uL Last Edit by Elba Hammond MA on 03/23/25 13:07 UA Specific [place] 1.030 Last Edit by Elba Hammond MA on 03/23/25 13:07 UA Ketone Negative Last Edit by Elba Hammond MA on 03/23/25 13:07 UA Bilirubin 1 mg/dL Last Edit by Elba Hammond MA on 03/23/25 13:07 UA Glucose 0 mg/dL Last Edit by Elba Hammond MA on 03/23/25 13:07 Results Reviewed Results Reviewed: Laboratory Last Values Urine pH (Auto) 6.0 03/23/25 13:06 Specific [place] (Auto) 1.030 03/23/25 13:06 Urine Protein (Auto) 30 mg/dL 03/23/25 13:06 Glucose (UA)(Auto) 0 mg/dL 03/23/25 13:06 Urine Ketones (Auto) Negative 03/23/25 13:06 Urine Blood (Auto) 200 Jakob/uL 03/23/25 13:06 Urine Nitrite (Auto) Positive 03/23/25 13:06 Urine Bilirubin (Auto) 1 mg/dL 03/23/25 13:06 Urine Urobilinogen (Auto) 0.2 mg/dL 03/23/25 13:06 Leukocyte Esterase (Auto) 125 Luz/uL 03/23/25 13:06 Assessment & Plan Assessment & Plan (1) Dysuria: Code(s): R30.0 - Dysuria Plan Most likely Urinary Tract Infection (Uti) UA in the office shows 2+ leuko, +nit, 1+pro, 3+blood, +ketones Plan - Drink lots of fluids - Tylenol or motrin as needed - Antibiotics prescribed for UTI to be taken during vacation. - Pyridium provided for pain management if necessary. - Urine culture ordered; alternative treatment to be arranged if initial antibiotic is ineffective. - follow up with PCP Orders: Orders Urine Culture Today N39.0 - Urinary tract infection, site not specified AMB Urinalysis Automated Today Z13.9 - Encounter for screening, unspecified Medications: New cefuroxime axetil 500 mg PO Q12H 10 tabs 0RF 5 days phenazopyridine 100 mg PO tid PRN 6 tabs 0RF Pain Coding Level of Care Code Est Pt Level 4 (50774) Diagnoses Dysuria R30.0
== END 2025-03-23 13:20 | disposition home or self-care (01) ==
PROVIDERS: PCP Nurse Practitioner Family; Visit Provider Physician Assistant Medical
DX: Z13.9 Encounter for screening, unspecified (principal); R30.0 Dysuria

== ENCOUNTER → 2025-03-23 12:45 | Outpatient (BNVA) | payer OTHER, SELFPAY | PROVIDERS: PCP Nurse Practitioner Family; Visit Provider Physician Assistant Medical | DX: R30.0 Dysuria (principal) | CPT/HCPCS: 81003 ==

== ENCOUNTER 2025-03-23 16:36 | Outpatient (REF) | payer OTHER, SELFPAY | END 2025-03-23 16:37 | disposition home or self-care (01) | LOC: HO.LNP 16:36 | PROVIDERS: Visit Provider Physician Assistant Medical | DX: N39.0 Urinary tract infection, site not specified (principal) | CPT/HCPCS: 87086; 87088; 87186 ==

== ENCOUNTER → 2025-05-17 14:00 | Outpatient (BNV) | payer OTHER, SELFPAY | PROVIDERS: Visit Provider Radiology Diagnostic Radiology | DX: E28.39 Other primary ovarian failure (principal) | CPT/HCPCS: 77081 ==

== ENCOUNTER 2025-05-17 14:02 | Outpatient (REF) | payer OTHER, SELFPAY ==
--- NOTE | ~2025-05-17 | MM_ITS ---
EXAMINATION: DXA BONE DENSITY EXTREMITY HISTORY: E21.3 - Hyperparathyroidism, unspecified TECHNIQUE: Gidsy Dual energy absorptiometry (DEXA) of the lumbar spine, total left hip, femoral neck, and distal radius was performed. COMPARISON: There are no prior studies for comparison. FINDINGS: The bone mineral density of the lumbar spine is 1.277 g/cm2, corresponding to a T-score of 0.8, and a Z-score of 0.9. This is indicative of normal bone mineral density. The bone mineral density of the left total hip is 1.053 g/cm2, corresponding to a T-score of 0.4, and a Z-score of 0.5. This is indicative of normal bone mineral density. The bone mineral density of the left femoral neck is 1.063 g/cm2, corresponding to a T-score of 0.2, and a Z-score of 0.7. This is indicative of normal bone mineral density. The bone mineral density of the distal radius is 0.942 g/cm2, corresponding to a T-score of 0.8, and a Z-score of 1.1. This is indicative of normal bone mineral density. MM/XR DEXA appendicular skeleton IMPRESSION: Based on bone mineral density, and according to World Health Organization (WHO) criteria, the diagnosis is consistent with normal bone mineral density. Statistically, 68% of repeat scans fall within 1 SD (+/- 0.010 g/cm2 for AP spine L1-L4) and 1 SD (+/- 0.012 g/cm2 for femur total) FRAX is a trademark of the [employer] Met[employer] Disease, a World Health Organization (WHO) Collaborating Center. Electronically signed by: Coleman Philippe MD 05/17/2025 02:45 PM EDT
--- OUTSIDE RECORDS SUMMARY | 2025-05-17 18:31 | XMS_ITS | Encounter Summary ---
Author Organization [facility] Address [address] [place] [phone] Phone Care Team Providers Care Mechanical Integrity Specialist Name Role Phone Michael Melendez ROTARY DRILLER HELPER Primary Care Provider + Encounter Details Date Type Department Care Team (Late st Contact Info) Description 05/10/2022 Procedure Pass [facility], Ct Scan - [address] [address] Social History Tobacco Use Types Packs/Day Years [...] 12:02 PM EDT Cheryl Bermudez, RN * [place] Suicide Severity Rating Scale (Screener/Recent Self-Report) Question [...] on filedocumented in this encounter Care Teams Mechanical Integrity Specialist Relationship Specialty Start Date End Date Michael Melendez NP [address] [place] [address] PCP - General Family Medicine 05/10/22 documented as of this encounter Additional Source Comments The information contained in this document represents components of the legal health record. It is not the complete legal health record.[facility]
--- OUTSIDE RECORDS SUMMARY | 2025-05-17 18:31 | XMS_ITS | Clinical Summary ---
Author Organization [facility] Address [address] [address] Phone Care Team Providers Care Track Grinder Operator Name Role Phone Michael Melendez MEDICAL DEVICE ENGINEER Primary Care Provider + Allergies Active Allergy Reactions Criticality Noted Date Comments Codeine Angina High 05/10/2022 Diltiazem Hcl Swelling 08/18/2023 Ketorolac 08/18/2023 Morphine 08/18/2023 Scopolamine 08/18/2023 hives Terconazole Swelling 08/18/2023 Tramadol Itching 08/18/2023 Medications dicyclomine (BENTYL) 10 MG capsule Take 10 mg by mouth 4 (four) times a day before meals and nightly. Active hydroCHLOROthiaz dexter (HYDRODIURIL) 50 MG tablet Take 50 mg by mouth daily. Active lansoprazole (PREVACID) 30 MG capsule Take 30 mg by mouth daily. Active rosuvastatin (CRESTOR) 20 MG tablet Take 20 mg by mouth daily. Active omega 1-oht-hbv-fish oil (FISH OIL) 300-1,[address] capsule Take by mouth. 11/10/2022 Active FREESTYLE LITE Strp strips 05/24/2023 Active estradioL (ESTRACE) 0.01 % (0.1 mg/gram) vaginal cream Place 1 g vaginally. 02/10/2023 Active MOUNJARO 5 mg/0.5 mL PnIj Inject 5 mg under the skin. 11/10/2022 Active amLODIPine (NORVASC) 5 MG tablet Take 5 mg by mouth. 11/10/2022 Active dicyclomine (BENTYL) 20 mg tablet Take 20 mg by mouth. 11/10/2022 Active Active Problems No known active problems Social History Tobacco Use Types Packs/Day Years Used Date Smoking Tobacco: Never Alcohol Use Standard Drinks/Week Comments Never 0 (1 standard drink = 0.6 oz pur e alcohol) Education Answer Date Recorded Are you interested in more education? Not on parviz e 12/17/2022 Are you concerned about learning? Not on file 12/17/2022 No 12/17/2022 No 12/17/2022 Digital Access Answer Date Recorded No 01/18/2023 No 01/18/2023 No 01/18/2023 Reliable internet access at home? Not on file 01/18/2023 Device with a working camera? Not on file Comments Unknown Sex and Gender Information Value Date Recorded Sex Assigned at Female 05/10/2022 12:02 PM EDT Legal Sex Female 7:41 PM EST Gender Identity Female 05/10/2022 12:02 PM EDT Sexual Orientation Straight 05/10/2022 12 :02 PM EDT Last Filed Vital Signs Vital Sign Reading Time Taken Comments Blood Pressure 120/81 08/18/2023 4:20 PM EST Pulse 75 08/18/2023 4:20 PM EST Temperature 36.5 C (97.7 F) 08/18/2023 4:20 PM EST Respiratory Rate 18 08/18/2023 4:20 PM EST Oxygen Saturation 97% 08/18/2023 4:20 PM EST Inhaled Oxygen Concentration - - Weight 77.1 kg (170 lb) 08/18/2023 4:20 PM EST Height 162.6 cm (5' 4 ) 08/18/2023 4:20 PM EST Body Mass Index 29.18 08/18/2023 4:20 PM EST Plan of Treatment Health Maintenance Due Date Last Done Comments Adult Td,Tdap Booster 1971 LIPID PANEL 1971 DEPRESSION SCREENING 1983 HEPATITIS C SCREENING 1989 HIV ONE-TIME SCREENING (18-6 5 YEARS) 1989 PAP SMEAR 1992 SMOKING STATUS SCREENING (On ce After 26 Yrs) 1997 MAMMOGRAM 2011 COLOGUARD 2016 COLONOSCOPY 2016 COLORECTAL CANCER SCREENING 2016 FIT TEST 2016 FOBT 2016 SIGMOIDOSCOPY 2016 VIRTUAL COLONOSCOPY 2016 PNEUMOCOCCAL VACCINES (50+ years) (1 of 1 - PCV) 2021 ZOSTER VACCINES (1 of 2) 2021 POTASSIUM LEVEL 05/10/2023 05/10/2022 INFLUENZA VACCINE (#1) 2025 , 06/16/2020, 07/03/2015 COVID-19 VACCINE (4 - 2024-2 6 season) 2025 08/28/2021, 01/15/2021, 12/24/2020 SCREENING FOR DIABETES 05/10/2025 05/10/2022 HEPATITIS A VACCINES Aged Out No long er eligible based on patient's age to complete this topic HIB VACCINES Aged Out No longer eligi ble based on patient's age to complete this topic MENINGOCOCCAL VACCINES (ACWY) Aged Out No longer eligible based on patient's age to complete this topic MENINGOCOCCAL VACCINES (B) Aged Out N o longer eligible based on patient's age to complete this topic Medical Devices Not on file Procedures Procedure Name Priority Date/Time Associated Diagnosis Comments BASIC METABOLIC PANEL STAT 05/10/2022 12:15 PM EDT from Last 3 Months or Most Recently Relevant to Health Maintenance Results * (ABNORMAL) Basic metabolic panel (05/10/2022 12:15 PM EDT) SODIUM 138 133 - 146 mmol/L [facility] CHLORIDE 100 96 - 108 mmol/L [facility] POTASSIUM 3.5 3.3 - 5.1 mmol/L [facility] CO2 27 21 - 35 mmol/L [facility] BUN 18 6 - 19 mg/dL [facility] CREATININE 0.60 0.5 - 1.5 mg/dL [facility] GLUCOSE 116(H) 70 - 99 mg/dL [facility] CALCIUM 9.9 8.4 - 10.3 mg/dL [facility] EGFR 109 >59 mL/min/1.7 3m2 [facility] Comment:Estimated glomerular filtration rate calculated using the CKD-EPI refit equation. ANION GAP 15 10 - 20 mmol/L [facility] Blood 05/10/2022 12:1 5 PM EDT 05/10/2022 12:26 PM EDT Matthieu Manuel MD LAB BLOOD ORDERABLES Final Result [facility] [address] [place] [address] from Last 3 Months or Most Recently Relevant to Health Maintenance Insurance [employer] [facility] [email or web address] [facility] CHOICE [facility] CHOICE [facility] CHOICE Care Teams Track Grinder Operator Relationship Specialty Start Date End Date Michael Melendez NP [address] [place] [id number] PCP - General Family Medicine 05/10/22 Additional Source Comments The information contained in this document represents components of the legal health record. It is not the complete legal health record.[facility]
== END 2025-05-17 14:03 | disposition home or self-care (01) ==
LOC: HO.MAMMO 14:02
PROVIDERS: Visit Provider Nurse Practitioner Family
DX: E21.3 Hyperparathyroidism, unspecified (principal)
CPT/HCPCS: 77081

== ENCOUNTER 2025-05-28 15:22 | Outpatient (AMB) | payer OTHER, SELFPAY ==
[2025-05-28 15:23] VITALS: BP 102/80; PULSE 73; O2SAT 98; BMI 32.2
--- NOTE | 2025-05-28 15:23 | MHC.OFFVIS ---
Vital Signs 05/28/25 15:23 Height 5 ft 4 in Weight 187 lb 13.341 oz BMI 32.2 BP 102/80 Blood Pressure Location Rt brachial Position Sitting Pulse 73 Pulse Source Pulse Oximeter Pulse Oximetry (%) 98 Oxygen Delivery Method Room Air Intake Visit Reasons: Hyperparathyroidism Intake Note: New patient present today for Hyperparathyroidism office visit. Inker Machine Required: No Accompanied by: Self / Same As Patient Allergies tramadol (TRAMADOL) Allergy (Severe, Verified 05/28/25 15:28) ITCHING adhesive tape (ADHESIVE TAPE) Allergy (Intermediate, Verified 05/28/25 15:28) RASH codeine (Codeine) Allergy (Unknown, Verified 05/28/25 15:28) CHEST PAIN diltiazem (Cardizem) Allergy (Unknown, Verified 05/28/25 15:28) Unknown ketorolac (From TORADOL) Allergy (Unknown, Verified 05/28/25 15:28) ITCHING morphine Allergy (Unknown, Verified 05/28/25 15:28) aggitation Medication List - Last Reconciled 05/28/25 by Omaira Puente MD dicyclomine 20 mg PO ONCE estradiol 0.01%(0.1mg/gram) vaginal evolocumab (Repatha SureClick) 140 mg subcut Q2W hydrochlorothiazide 50 mg PO DAILY 90 days lansoprazole 30 mg PO BID tirzepatide 10 mg (0.5 mL) subcut QWEEK valsartan 80 mg PO DAILY HPI Comments Details: 54-year-old female coming in today for elevated PTH level. Chart review shows patient has had calcium levels ranging anywhere from 9.6- 10.8, with her albumin anywhere from 4-4.6. Most recent blood work from February 2025 showed calcium elevated at 10.3 with albumin of 4.6, corrected calcium would be 9.7, ionized calcium was however also elevated at 5.7, vitamin-D of 142.9, PTH elevated at 264.3, EGFR greater than 60. Fractures: right ankle , slipped over an embankment 20 years years ago DEXA scan 05/17/2025 showed normal bone density of the spine forearm. Was having hematuria , 2023, thinks it was a kidney stone but not located on imaging Abdominal ultrasound from 2 in 2022 showed normal kidneys with no kidney stones. On HCTZ 50 mg at least 5 years for leg swelling. 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 Never smoker , no drug use Physical exam General: sitting comfortably in no acute distress HEENT: normocephalic/atraumatic, Cardiac: normal heart rAte Pulm: Normal pulmonary effort Abd: not distended, no tenderness Extremities: no edema, no signs of myxedema Laboratory Tests 05/27/18 07/21/18 03/06/19 08:00 07:30 10:48 Creatinine Estimated GFR Calcium 9.9 9.6 10.0 Ionized Calcium Albumin 25-OH Vitamin D Total 20.2 TSH PTH Intact 04/19/19 05/08/19 05/08/19 15:19 12:50 12:50 Creatinine Estimated GFR Calcium 10.3 H 10.0 10.1 Ionized Calcium 5.5 Albumin 25-OH Vitamin D Total TSH PTH Intact 39 05/31/19 09/11/19 02/09/20 16:15 10:26 09:12 Creatinine Estimated GFR Calcium 10.0 10.0 9.3 D Ionized Calcium Albumin 25-OH Vitamin D Total 12.9 TSH PTH Intact 02/23/20 03/05/20 05/08/20 10:00 12:02 07:46 Creatinine Estimated GFR Calcium 9.7 9.5 9.7 Ionized Calcium Albumin 25-OH Vitamin D Total TSH PTH Intact 08/27/20 09/26/20 01/01/21 14:45 08:25 15:02 Creatinine Estimated GFR Calcium 9.9 9.4 9.7 Ionized Calcium Albumin 4.4 4.6 25-OH Vitamin D Total 27.2 TSH PTH Intact 01/03/21 05/07/21 08/15/21 08:10 07:45 09:07 Creatinine Estimated GFR Calcium 9.7 9.7 9.7 Ionized Calcium Albumin 4.3 4.4 25-OH Vitamin D Total TSH PTH Intact 10/01/21 11/18/21 01/12/22 12:35 07:59 08:01 Creatinine Estimated GFR Calcium 10.1 9.6 Ionized Calcium Albumin 4.5 4.4 4.0 25-OH Vitamin D Total TSH PTH Intact 03/19/22 04/01/22 04/28/22 07:45 13:26 16:31 Creatinine Estimated GFR Calcium 9.9 10.1 9.9 Ionized Calcium Albumin 4.6 4.5 4.5 25-OH Vitamin D Total TSH PTH Intact 05/06/22 10/10/22 01/30/23 13:49 09:53 10:40 Creatinine Estimated GFR Calcium 10.1 10.1 9.8 Ionized Calcium Albumin 4.5 4.4 4.0 25-OH Vitamin D Total 21.9 83.2 TSH PTH Intact 02/16/23 02/25/23 06/05/23 09:47 10:25 10:11 Creatinine Estimated GFR Calcium 10.1 Ionized Calcium Albumin 4.2 4.0 4.4 25-OH Vitamin D Total TSH PTH Intact 10/11/23 12/24/23 03/23/24 10:55 12:20 09:40 Creatinine Estimated GFR Calcium 10.0 10.8 H D Ionized Calcium Albumin 4.2 4.5 4.5 25-OH Vitamin D Total 84.3 63.0 TSH PTH Intact 08/05/24 12/23/24 03/07/25 11:12 10:46 11:05 Creatinine 0.71 Estimated GFR > 60 Calcium 10.2 10.2 10.3 H Ionized Calcium Albumin 4.3 4.3 4.6 25-OH Vitamin D Total 34.0 TSH 2.43 PTH Intact 03/19/25 03/19/25 13:20 13:29 Creatinine Estimated GFR Calcium Ionized Calcium 5.7 H Albumin 25-OH Vitamin D Total 142.9 TSH PTH Intact 164.3 H US ABDOMEN COMPLETE 02/16/2023 CLINICAL INFORMATION: Elevated LFTs, epigastric pain radiating to back. COMPARISON: Ultrasound retroperitoneal complete (renal) 05/06/2022. Ultrasound abdomen complete 12/12/2021. CT abdomen and pelvis with contrast 05/25/2019. TECHNIQUE: Real-time imaging of the abdominal viscera. FINDINGS: PANCREAS: Normal. ABDOMINAL AORTA: Proximal abdominal aorta is dilated measuring 2.5 x 2.9 cm. INFERIOR VENA CAVA: Visualized portions are normal. LIVER: Normal. The liver is normal in size. The liver contour is normal. Parenchymal echogenicity is normal. No focal hepatic lesion. There is no intrahepatic biliary duct dilatation seen. GALLBLADDER: Surgically absent. COMMON BILE DUCT: Normal in caliber measuring 0.7 cm in diameter. RIGHT KIDNEY: Normal. No hydronephrosis. No renal calculi or focal parenchymal lesions. The kidney measures 11.9 cm in maximum dimension. LEFT KIDNEY: Normal. No hydronephrosis. No renal calculi or focal parenchymal lesions. The kidney measures 12.7 cm in maximum dimension. SPLEEN: Normal. The spleen measures 9.2 cm in maximum dimension. FREE FLUID: None. 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 Recommend followup every 5 years. Reference: J Am Gustabo Radiol 2013; 10 (10): 789-794. Reason For Exam: E21.3 - Hyperparathyroidism, unspecified EXAMINATION: DXA BONE DENSITY EXTREMITY 05/17/2025 HISTORY: E21.3 - Hyperparathyroidism, unspecified TECHNIQUE: [email or web address] Dual energy absorptiometry (DEXA) of the lumbar spine, total left hip, femoral neck, and distal radius was performed. COMPARISON: There are no prior studies for comparison. FINDINGS: The bone mineral density of the lumbar spine is 1.277 g/cm2, corresponding to a T-score of 0.8, and a Z-score of 0.9. This is indicative of normal bone mineral density. The bone mineral density of the left total hip is 1.053 g/cm2, corresponding to a T-score of 0.4, and a Z-score of 0.5. This is indicative of normal bone mineral density. The bone mineral density of the left femoral neck is 1.063 g/cm2, corresponding to a T-score of 0.2, and a Z-score of 0.7. This is indicative of normal bone mineral density. The bone mineral density of the distal radius is 0.942 g/cm2, corresponding to a T-score of 0.8, and a Z-score of 1.1. This is indicative of normal bone mineral density. MM/XR DEXA appendicular skeleton IMPRESSION: Based on bone mineral density, and according to World Health Organization (WHO) criteria, the diagnosis is consistent with normal bone mineral density. [facility] Medical History HLD (hyperlipidemia) Hypertension Transaminitis T2DM (type 2 diabetes mellitus) Concussion KIMMY positive Abnormal EKG HLD (hyperlipidemia) Right cervical radiculopathy Right shoulder tendonitis Surgical History History of suburethral sling procedure Hx of cardiac cath (~10/2017) History of hysterectomy Hx of cholecystectomy Family History Father CAD (coronary artery disease) PVD (peripheral vascular disease) HTN (hypertension) Hyperlipidemia Myocardial infarction Mother HTN (hypertension) CLL (chronic lymphocytic leukemia) Sister No problems noted. Son No problems noted. Social History Housing: House Alcohol intake: current Alcohol intake frequency: holidays/special occasions only Patient Tobacco Use Status: Never used Tobacco e-Cigarette/Vaping Use: Never Used Second Hand Smoke Exposure: No service: No Current occupational status: employed Current occupation: [employer] Current occupational exposures/hazards: Yes Cognitive needs: No Hearing needs: No Vision needs: No Physical Exam Vital Signs: Last Vital Signs Pulse 73 05/28/25 15:23 BP 102/80 05/28/25 15:23 Pulse Ox 98 05/28/25 15:23 Oxygen Delivery Method Room Air 05/28/25 15:23 BMI result Body Mass Index 32.2 Assessment & Plan Assessment & Plan (1) Hyperparathyroidism: Code(s): E21.3 - Hyperparathyroidism, unspecified Category: Medical Plan: 54-year-old female coming in today for elevated PTH level. Chart review shows patient has had calcium levels ranging anywhere from 9.6- 10.8, with her albumin anywhere from 4-4.6. Most recent blood work from February 2025 showed calcium elevated at 10.3 with albumin of 4.6, corrected calcium would be 9.7, ionized calcium was however also elevated at 5.7, vitamin-D of 142.9, PTH elevated at 164.3, EGFR greater than 60. Interestingly patient is not on any vitamin-D supplements. Despite that her vitamin-D levels were quite high in February 2025. We should keep in mind differential of granulomatous diseases in that case. We will also check 125 dihydroxy vitamin-D level. She does have borderline high calcium levels, PTH level is also high. Other could be primary hyperparathyroidism or familial hypercalciuric hypercalcemia. We will check for 24 hour urine calcium levels. Bone density is normal from April 2025. No history of fragility fractures. No evidence of kidney stones on renal imaging from 2022. Though there was some suspicion she might have some kidney stones that she passed based on history of hematuria. Plan: -ordered 24 hour urine calcium, 24 hour urine creatinine, calcium, phosphorus, magnesium, ionized calcium, albumin, PTH, vitamin-D level, 125 dihydroxy vitamin-D level, creatinine, we will reach out with the results and let her know if you would like to verify the PTH level at [facility] given some variation of PTH level at our lab, papers given for that as well. Plan I spent 45 minutes in reviewing the record, seeing the patient and documenting in the medical record. Orders: Orders Magnesium Today E21.3 - Hyperparathyroidism, unspecified Phosphorus Today E21.3 - Hyperparathyroidism, unspecified Parathyroid Hormone Intact Today E21.3 - Hyperparathyroidism, unspecified Calcium, 24 Hr Ur Today E21.3 - Hyperparathyroidism, unspecified Creatinine, 24 Hr Group Today E21.3 - Hyperparathyroidism, unspecified Vitamin D 1,25 dihydroxy Today E21.3 - Hyperparathyroidism, unspecified Vitamin D 25-OH (D2 and D3) Today E21.3 - Hyperparathyroidism, unspecified Creatinine 06/03/25 E21.3 - Hyperparathyroidism, unspecified Vitamin D 25-OH Total 06/03/25 E21.3 - Hyperparathyroidism, unspecified Phosphorus 06/03/25 E21.3 - Hyperparathyroidism, unspecified Albumin Level Today E21.3 - Hyperparathyroidism, unspecified Calcium Today E21.3 - Hyperparathyroidism, unspecified Calcium, Ionized Today E21.3 - Hyperparathyroidism, unspecified Vitamin D 25-OH Total Today E21.3 - Hyperparathyroidism, unspecified Creatinine Today E21.3 - Hyperparathyroidism, unspecified Albumin Level 06/03/25 E21.3 - Hyperparathyroidism, unspecified Calcium 06/03/25 E21.3 - Hyperparathyroidism, unspecified Parathyroid Hormone Intact 06/03/25 E21.3 - Hyperparathyroidism, unspecified Patient Instructions: Do 24 hour urine collection and same day morning as you had in the urine, do blood work 24 hr urine collection instructions You have been asked to collect your urine for 24 hours to assess for calcium excretion. You must choose a 24 hour period of time when you will be home. The morning of the first day, DISCARD the FIRST morning void and then note the time. You will collect every single void from then on for 24 hours. For example, if you wake up at 6am and urinate, flush down that void. You will then collect every drop of urine all day and all night through 6am the following day. You will urinate one last time at 6am for the collection. The jug of urine must be kept in the refrigerator until you bring it to the lab. We will communicate the results to you and let you know if you need to proceed with getting the blood work done at [facility], [address] [place] [address], [facility] given Please make sure they fax the results to my office, fax number given Coding Level of Care Code New Pt Level 4 (17835) Diagnoses Hyperparathyroidism E21.3 Time Spent (min) 45
--- OUTSIDE RECORDS SUMMARY | 2025-05-28 17:48 | XMS_ITS | Clinical Summary ---
Author Organization [facility] Address [address] [address] Phone Care Team Providers Care Post Doc Fellowship Name Role Phone Michael Melendez [id number] TANK CREWMAN Primary Care Provider + Allergies Active Allergy [...] 20 mg by mouth daily. Active omega 6-irq-jem-fish oil (FISH OIL) 300-1,[address] [...] 01/15/2021, 12/24/2020 SCREENING FOR DIABETES 05/10/2025 05/10/2022 RSV VACCINE (1 - 1-dose 75+ series) 2046 HEPATITIS A VACCINES Aged Out No long [...] EDT) SODIUM 138 133 - 146 mmol/L [facility] CHLORIDE 100 96 - 108 mmol/L [facility] POTASSIUM 3.5 3.3 - 5.1 mmol/L [facility] CO2 27 21 - 35 mmol/L [facility] BUN 18 6 - 19 mg/dL [facility] CREATININE 0.60 0.5 - 1.5 mg/dL [facility] GLUCOSE 116(H) 70 - 99 mg/dL [facility] CALCIUM 9.9 8.4 - 10.3 mg/dL [facility] EGFR 109 >59 mL/min/1.7 3m2 [facility] Comment:Estimated glomerular filtration rate calculated using the CKD-EPI refit equation. ANION GAP 15 10 - 20 mmol/L [facility] Blood 05/10/2022 12:1 5 PM EDT 05/10/2022 12:26 PM EDT Matthieu Manuel MD LAB BLOOD ORDERABLES Final Result Performing Organization Address City/State/[facility] Co de Phone Number [address] [phone] from Last 3 Months or Most Recently Relevant to Health Maintenance Insurance [employer] [facility] Plan B Funding CHOICE [employer] [facility] [employer] [place] [facility] CHOICE [facility] Care Teams Post Doc Fellowship Relationship Specialty Start Date End Date Michael Melendez NP [facility] [place] [address] PCP - General Family Medicine 05/10/22 Additional Source Comments The information contained in this document represents components of the legal health record. It is not the complete legal health record.[facility]
--- OUTSIDE RECORDS SUMMARY | 2025-05-28 17:48 | XMS_ITS | Clinical Summary ---
Author Organization [facility] [address] [facility] Address [address] [place] [address] Phone Care Team Providers Care Miniature Model Maker Name Role Phone Michael Melendez NP Primary Care Provider Allergies Active Allergy Reactions Criticality Noted Date Comments Adhesive Rash 10/05/2024 [place] And Derivatives Other 10/05/2024 dysuria Codeine 09/03/2024 Diltiazem Hcl Swelling 08/18/2023 Other Reaction(s): retain fluid Ketorolac High 08/18/2023 Morphine 08/18/2023 Scopolamine 08/18/2023 hives Terconazole Swelling 08/18/2023 Tramadol Hives,Itching 08/18/2023 Medications lansoprazole (PREVACID) [address] saminaIndlennie ns:Gastroesophag eal reflux disease without esophagitis Take [...] HTN (hypertension) 02/01/2025 Gastroesophageal reflux disease 02/01/2025 Surgical History Surgery Date Site/Laterality Comments COLONOSCOPY W/ POLYPECTOMY 06/19/2024 TA x 6 CHOLECYSTECTOMY 08/23/2013 - 08/22/2014 HYSTERECTOMY 09/23/2015 - 10/21/2015 BLADDER SUSPENSION 09/23/2015 - 10/21/2015 with rectocele repair COLONOSCOPY W/ POLYPECTOMY 09/23/2018 - 10/20/2018 TA x 1 ESOPHAGOGASTRODUODENOSCOPY 06/23/2016 - 07/22/2016 [facility]- small HH ESOPHAGOGASTRODUODENOSCOPY 11/25/2018 small HH - no celiac, no h. 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[employer] Not on file Not on file Not [...] Care Team (Late st Contact Info) Description 06/04/2025 8:15 AM EDT Appointment [facility] Xray [address] [place] [address] Health Maintenance Due Date Last [...] 07/22/2022 Social Influencers of Health Screening 07/22/2022 Depression Screening 08/23/2024 Diabetes: Annual Urine Albumin-Creatinine Ratio (uACR) 09/06/2024 Diabetes: Blood Sugar Contro l Test (HGBA1C) 09/06/2024 Hypertension/CHF/CAD Annual BMP Blood Test 09/06/2024 COVID-19 Vaccine (4 - 2024-2 6 season) 2025 08/28/2021, 01/15/2021, 12/24/2020 Influenza Vaccine (#1) 2025 , 06/16/2020, 07/03/2015 Colorectal Cancer Screening: Colonoscopy 06/19/2034 06/19/2024, 09/30/2018 RSV Immunization Adult Patients (1 - 1-dose 75+ series) 2046 HIB Vaccines Aged Out No longer eligi [...] specimen / Unknown Historical Provider LAB BLOOD ORDERABLES Caroline l Result from Last 3 Months or Most Recently Relevant to Health Maintenance Insurance [employer] [place] [id number] Care Teams Miniature Model Maker Relationship Specialty Start Date End Date Michael Melendez NP [address] [facility] JANEL [place] PCP - General Family Medicine 07/17/24
--- OUTSIDE RECORDS SUMMARY | 2025-05-28 17:48 | XMS_ITS | Encounter Summary ---
Author Organization [facility] Address [address] [place] [phone] Phone Care Team Providers Care Financial Intern Name Role Phone Michael Melendez [employer] Primary Care Provider + Encounter Details Date Type Department Care Team (Late st Contact Info) Description 05/10/2022 Procedure Pass [facility], Ct Scan - [address] [address] Social History Tobacco Use Types Packs/Day Years [...] 12:02 PM EDT Cheryl Bermudez, RN * [place] Suicide Severity Rating Scale (Screener/Recent Self-Report) Question Answer Date of Assessment Author 1. Wish to be (Past 1 Month) No 022 12:02 PM EDT Cheryl Bermudez, RN 2. Non-Specific Active Suici ila Thoughts (Past 1 Month) No 05/10/2022 12:02 PM EDT Cheryl Bermudez, RN 6. Suicidal Behavior (Lifetime) No 2 12:02 PM EDT Cheryl Bermudez RN documented as of this encounter Plan of Treatment Not on file documented as of this encounter Visit Diagnoses Not on filedocumented in this encounter Care Teams Financial Intern Relationship Specialty Start Date End Date Michael Melendez NP [address] [facility] [place] [address] PCP - General Family Medicine 05/10/22 documented as of this encounter Additional Source Comments The information contained in this document represents components of the legal health record. It is not the complete legal health record.[facility]
== END 2025-05-28 16:12 | disposition home or self-care (01) ==
LOC: HO.ENCR 15:23
PROVIDERS: PCP Nurse Practitioner Family; Visit Provider Student in an Organized Health Care Education/Training Program
DX: E21.3 Hyperparathyroidism, unspecified (principal)
CPT/HCPCS: 99204

== ENCOUNTER 2025-07-21 13:16 | Outpatient (AMB) | payer OTHER, SELFPAY ==
--- OUTSIDE RECORDS SUMMARY | 2025-07-21 13:20 | XMS_ITS | Clinical Summary ---
Author Organization [facility] [address] [facility] Address [address] [place] [address] Phone Care Team Providers Care Jet Operator Name Role Phone Michael Melendez NP Primary Care Provider [phone] Allergies Active Allergy Reactions Criticality Noted Date Comments Adhesive Rash 10/05/2024 [place] And Derivatives Other 10/05/2024 dysuria Codeine 09/03/2024 Diltiazem Hcl Swelling 08/18/2023 Other Reaction(s): retain fluid Ketorolac High 08/18/2023 Morphine 08/18/2023 Scopolamine 08/18/2023 hives Terconazole Swelling 08/18/2023 Tramadol Hives,Itching 08/18/2023 Medications Mounjaro 7.5 mg/0.5 mL injection 5 Active amLODIPine (NORVASC) 2.5 mg tablet Take 1 tablet (2.5 mg total) by mouth 1 (one) time each day. 4 Active hydroCHLOROthia zide (HYDRODIURIL) 50 mg tablet Take 1 tablet (50 mg total) by mouth 1 (one) time each day. 5 Active rosuvastatin (CRESTOR) 20 mg tablet Take 1 tablet (20 mg total) by mouth 1 (one) time each day. 4 Active dicyclomine (BENTYL) 10 mg capsule Take 1 capsule (10 mg total) by mouth 4 (four) times a day (before meals and nightly). Active valsartan (DIOVAN) 80 mg tablet Take 1 tablet (80 mg total) by mouth 1 (one) time each day. 5 Active lansoprazole (PREVACID) [address] capsuleIndicati ons:Gastroesoph ageal reflux disease without esophagitis TAKE 1 CAPSULE TWICE DAILY.DO NOT CRUSH OR CHEW. 180 capsule 3 5 Active lansoprazole (PREVACID) [address] capsuleIndicati ons:Gastroesoph ageal reflux disease without esophagitis Take 1 capsule (30 mg total) by mouth 2 (two) times a day. Do not crush or chew. 180 each 3 4 025 Discontinued Active Problems Problem Noted Date Diagnosed Date [...] no celiac, no h. Pylori ESOPHAGOGASTRODUODENOSCOPY 06/28/2002 [facility] Medical History Medical History Date Comments [...] 02/01/2025 9:13 AM EDT Plan of Treatment Health Maintenance Due Date [...] Recently Relevant to Health Maintenance Insurance [employer] Care Teams Jet Operator Relationship Specialty Start Date End Date Michael Melendez NP [address] [facility] [place] PCP - General Family Medicine 07/17/24
--- OUTSIDE RECORDS SUMMARY | 2025-07-21 13:20 | XMS_ITS | Encounter Summary ---
Author Organization [facility] Address [address] [place] [phone] Phone Care Team Providers Care Lead Instructor/Flight Attendant Name Role Phone Michael Melendez TRIAL ATTORNEY Primary Care Provider + Encounter Details Date Type Department Care Team (Late st Contact Info) Description 05/10/2022 Procedure Pass [facility], Ct Scan - [address] [address] Social History Tobacco Use Types Packs/Day Years [...] 12:02 PM EDT Cheryl Bermudez, RN * [place] Suicide Severity Rating Scale (Screener/Recent Self-Report) Question [...] on filedocumented in this encounter Care Teams Lead Instructor/Flight Attendant Relationship Specialty Start Date End Date Michael Melendez NP [address] [facility] [place] [address] PCP - General Family Medicine 05/10/22 documented as of this encounter Additional Source Comments The information contained in this document represents components of the legal health record. It is not the complete legal health record.[facility]
--- OUTSIDE RECORDS SUMMARY | 2025-07-21 13:20 | XMS_ITS | Clinical Summary ---
Author Organization [facility] Address [address] [address] Phone Care Team Providers Care Construction Skills Teacher Name Role Phone Michael Melendez INDEPENDENT CONTRACTOR Primary Care Provider + Allergies Active Allergy [...] 20 mg by mouth daily. Active omega 8-cap-rgp-fish oil (FISH OIL) 300-1,[address] [...] patient's age to complete this topic IPV VACCINES Aged Out No longer eligi ble [...] Date/Time Associated Diagnosis Comments BASIC METABOLIC PANEL (BMP) STAT 05/10/2022 12:15 PM EDT from Last 3 Months or Most Recently Relevant to Health Maintenance Results * (ABNORMAL) Basic metabolic panel (05/10/2022 12:15 PM EDT) SODIUM 138 133 - 146 mmol/L [facility] CHLORIDE 100 96 - 108 mmol/L [facility] POTASSIUM 3.5 3.3 - 5.1 mmol/L [facility] CO2 27 21 - 35 mmol/L [facility] BUN 18 6 - 19 mg/dL [facility] CREATININE 0.60 0.5 - 1.5 mg/dL [facility] GLUCOSE 116(H) 70 - 99 mg/dL [facility] CALCIUM 9.9 8.4 - 10.3 mg/dL [facility] EGFR 109 >59 mL/min/1.7 3m2 [facility] Comment:Estimated glomerular filtration rate calculated using the CKD-EPI refit equation. ANION GAP 15 10 - 20 mmol/L [facility] Blood 05/10/2022 12:1 5 PM EDT 05/10/2022 12:26 PM EDT us Matthieu Manuel MD LAB BLOOD BKR ORDERABLES F inal Result [facility] [address] [place] [address] from Last 3 Months or Most Recently Relevant to Health Maintenance Insurance [employer] CHOICE [facility] CHOICE [facility] CHOICE [facility] CHOICE [facility] CHOICE [facility] CHOICE [facility] CHOICE [facility] CHOICE Care Teams Construction Skills Teacher Relationship Specialty Start Date End Date Michael Melendez NP [address] [facility] [place] [address] PCP - General Family Medicine 05/10/22 Additional Source Comments The information contained in this document represents components of the legal health record. It is not the complete legal health record.[facility]
[2025-07-21 13:21] VITALS: BP 120/84; PULSE 76; RESP 16; TEMP 36.6; O2SAT 97; BMI 31.8
--- NOTE | 2025-07-21 13:21 | MHC.OFFWIV ---
Intake Vital Signs 07/21/25 13:21 Height 5 ft 4 in Weight 83.915 kg BMI 31.8 BP 120/84 Blood Pressure Location Rt brachial Position Sitting Respiration 16 Pulse 76 Pulse Source Pulse Oximeter Temp 97.9 F Temp Source Oral Pulse Oximetry (%) 97 Oxygen Delivery Method Room Air Intake Visit Reasons: EP Possible UTI Intake Note: Pt is here today Upper Rt back pain, burning sensation upon urination x3days Patient Tobacco Use Status: Never used Tobacco Allergies tramadol (TRAMADOL) Allergy (Severe, Verified 05/28/25 15:28) ITCHING adhesive tape (ADHESIVE TAPE) Allergy (Intermediate, Verified 05/28/25 15:28) RASH codeine (Codeine) Allergy (Unknown, Verified 05/28/25 15:28) CHEST PAIN diltiazem (Cardizem) Allergy (Unknown, Verified 05/28/25 15:28) Unknown ketorolac (From TORADOL) Allergy (Unknown, Verified 05/28/25 15:28) ITCHING morphine Allergy (Unknown, Verified 05/28/25 15:28) aggitation HPI HPI Comments History of Present Illness Details Chief Complaint: Left flank pain with urinary frequency and burning. History of Present Illness: The patient is a 54-year-old female with a history of hyperparathyroidism, abdominal aortic aneurysm, hyperlipidemia, hypertension, hydronephrosis, transaminitis, type 2 diabetes, and coronary artery disease who presents with several days of progressive left flank pain, urinary frequency, dysuria, and abdominal cramping. She reports a history of recurrent urinary tract infections and feels this episode is consistent with a UTI. She is followed by endocrinology for hyperparathyroidism, where elevated calcium levels have raised concern for nephrolithiasis; a 24-hour urine collection has been ordered. She inquired whether to complete the 24-hour urine now or after treatment; she was advised to wait until completion of the antibiotic course. She denies symptoms suggesting pyelonephritis or acute abdomen ( fevers, nausea, vomiting, abd pain, headache, vision changes, dizziness, weakness) Assessment: Urinary tract infection versus cystitis; pyelonephritis unlikely. Plan: Ceftin 250 mg PO BID ? 7 days. Pyridium for symptomatic relief. Fluconazole for yeast. Defer 24-hour urine collection until completion of antibiotic therapy. Follow-up with PCP, endocrinology, and urology as scheduled. [facility] Medical History HLD (hyperlipidemia) Hypertension Transaminitis T2DM (type 2 diabetes mellitus) Concussion KIMMY positive Abnormal EKG HLD (hyperlipidemia) Right cervical radiculopathy Right shoulder tendonitis Surgical History History of suburethral sling procedure Hx of cardiac cath (~10/2017) History of hysterectomy Hx of cholecystectomy Family History Father CAD (coronary artery disease) PVD (peripheral vascular disease) HTN (hypertension) Hyperlipidemia Myocardial infarction Mother HTN (hypertension) CLL (chronic lymphocytic leukemia) Sister No problems noted. Son No problems noted. Social History Housing: House Alcohol intake: current Alcohol intake frequency: holidays/special occasions only Patient Tobacco Use Status: Never used Tobacco e-Cigarette/Vaping Use: Never Used Second Hand Smoke Exposure: No service: No Current occupational status: employed Current occupation: [employer] Current occupational exposures/hazards: Yes Cognitive needs: No Hearing needs: No Vision needs: No Review of Systems Const All systems reviewed & are unremarkable except as noted in HPI and below Physical Exam Exam Exam: Appearance: Alert.? Oriented X3.? No acute distress.? Head: Normocephalic, atraumatic, no step-offs or deformities Eyes: Pupils equal, round and reactive to light.? CVS: Normal heart rate and rhythm.? Pulses normal.? Respiratory: No respiratory distress.? Breath sounds normal.? Abdomen: Soft and nontender.? Skin: Skin warm and dry.? Normal skin color.? Normal skin turgor.? Extremities: No lower extremity edema.? No calf ttp. 5/5 strength to bilateral upper and lower extremities Back: No midline tenderness, no C-spine tenderness, full range of motion, no CVA tenderness bilaterally Neuro: Oriented X 3.? No motor deficit.? No sensory deficit. CN 2-12 intact Vital Signs: Last Vital Signs Temp 97.9 F 07/21/25 13:21 Pulse 76 07/21/25 13:21 Resp 16 07/21/25 13:21 BP 120/84 07/21/25 13:21 Pulse Ox 97 07/21/25 13:21 Oxygen Delivery Method Room Air 07/21/25 13:21 BMI result Body Mass Index 31.8 vss Results AMB Urinalysis, Automated UA Leukoctes 125 Luz/uL Last Edit by Carmelita Lnik, KAILYN on 07/21/25 13:36 UA Nitrite Negative Last Edit by Carmelita Link, KAILYN on 07/21/25 13:36 UA Urobilinogen 0.2 mg/dL Last Edit by Carmelita Link, KAILYN on 07/21/25 13:36 UA Protein 0 mg/dL Last Edit by Carmelita Link, POOL INSTALLER on 07/21/25 13:36 UA pH 6.0 Last Edit by Carmelita Link, POOL INSTALLER on 07/21/25 13:36 UA Blood 200 Jakob/uL Last Edit by Carmelita Link, POOL INSTALLER on 07/21/25 13:36 UA Specific [place] 1.015 Last Edit by Carmelita Link, KAILYN on 07/21/25 13:36 UA Ketone Negative Last Edit by Carmelita Link, POOL INSTALLER on 07/21/25 13:36 UA Bilirubin 0 mg/dL Last Edit by Carmelita Link, POOL INSTALLER on 07/21/25 13:36 UA Glucose 0 mg/dL Last Edit by Carmelita Link, POOL INSTALLER on 07/21/25 13:36 Results Reviewed Results Reviewed: Laboratory Last Values Urine pH (Auto) 6.0 07/21/25 13:35 Specific [place] (Auto) 1.015 07/21/25 13:35 Urine Protein (Auto) 0 mg/dL 07/21/25 13:35 Glucose (UA)(Auto) 0 mg/dL 07/21/25 13:35 Urine Ketones (Auto) Negative 07/21/25 13:35 Urine Blood (Auto) 200 Jakob/uL 07/21/25 13:35 Urine Nitrite (Auto) Negative 07/21/25 13:35 Urine Bilirubin (Auto) 0 mg/dL 07/21/25 13:35 Urine Urobilinogen (Auto) 0.2 mg/dL 07/21/25 13:35 Leukocyte Esterase (Auto) 125 Luz/uL 07/21/25 13:35 Assessment & Plan Assessment & Plan (1) UTI (urinary tract infection): Code(s): N39.0 - Urinary tract infection, site not specified Qualifiers: Urinary tract infection type: acute cystitis Hematuria presence: without hematuria Qualified Code(s): N30.00 - Acute cystitis without hematuria Plan Take your medications as prescribed. If you were prescribed antibiotics today, it is important that you take your medication to their entirety, do not skip any doses, do not finish them early. Follow-up with your primary care provider this week. Go to the emergency department with new or worsening symptoms. In case of emergency call 911 Orders: Orders AMB Urinalysis Automated Today Z13.9 - Encounter for screening, unspecified Medications: New cefuroxime axetil 250 mg PO BID 14 tabs 0RF 7 days fluconazole 150 mg PO Q3D 2 tabs 0RF 2 doses phenazopyridine (Pyridium) 200 mg PO TID 6 tabs 0RF 6 doses Coding Level of Care Code Est Pt Level 3 (60652) Diagnoses Acute cystitis without hematuria N30.00 Urinary tract infection type: acute cystitis Hematuria presence: without hematuria
== END 2025-07-21 14:02 | disposition home or self-care (01) ==
PROVIDERS: PCP Nurse Practitioner Family; Visit Provider Physician Assistant
DX: N30.00 Acute cystitis without hematuria (principal); Z13.9 Encounter for screening, unspecified

== ENCOUNTER → 2025-07-21 13:16 | Outpatient (BNVA) | payer OTHER, SELFPAY | PROVIDERS: PCP Nurse Practitioner Family; Visit Provider Physician Assistant | DX: N30.00 Acute cystitis without hematuria (principal) | CPT/HCPCS: 81003 ==

== ENCOUNTER 2025-07-30 07:23 | Outpatient (REF) | payer OTHER, SELFPAY ==
--- OUTSIDE RECORDS SUMMARY | 2025-07-30 07:26 | XMS_ITS | Clinical Summary ---
Author Organization [facility] Address [address] [address] Phone Care Team Providers Care Software Engineer Backend Name Role Phone Michael Melendez GROUNDSKEEPER SUPERVISOR Primary Care Provider + Allergies Active Allergy [...] 20 mg by mouth daily. Active omega 9-mnc-kyi-fish oil (FISH OIL) 300-1,[address] [...] EDT) SODIUM 138 133 - 146 mmol/L [facility] CHLORIDE 100 96 - 108 mmol/L [facility] POTASSIUM 3.5 3.3 - 5.1 mmol/L [facility] CO2 27 21 - 35 mmol/L [facility] BUN 18 6 - 19 mg/dL [facility] CREATININE 0.60 0.5 - 1.5 mg/dL [facility] GLUCOSE 116(H) 70 - 99 mg/dL [facility] CALCIUM 9.9 8.4 - 10.3 mg/dL [facility] EGFR 109 >59 mL/min/1.7 3m2 [facility] Comment:Estimated glomerular filtration rate calculated using the CKD-EPI refit equation. ANION GAP 15 10 - 20 mmol/L [facility] Blood 05/10/2022 12:1 5 PM EDT 05/10/2022 12:26 PM EDT us Matthieu Manuel MD LAB BLOOD BKR ORDERABLES F inal Result Performing Organization Address City/State/[facility] Co de Phone Number [facility] [address] [place] [address] from Last 3 Months or Most Recently Relevant to Health Maintenance Insurance [employer] [facility] [employer] CHOICE [employer] [facility] Convert[employer] CHOICE [facility] CHOICE [facility] CHOICE CHOICE CHOICE Care Teams Software Engineer Backend Relationship Specialty Start Date End Date Michael Melendez NP [address] [place] [address] PCP - General Family Medicine 05/10/22 Additional Source Comments The information contained in this document represents components of the legal health record. It is not the complete legal health record.[facility]
--- OUTSIDE RECORDS SUMMARY | 2025-07-30 07:26 | XMS_ITS | Encounter Summary ---
Author Organization [facility] Address [address] [place] [phone] Phone Care Team Providers Care Circulation Clerk Name Role Phone Michael Melendez GREETING CARD EDITOR Primary Care Provider + Encounter Details Date Type Department Care Team (Late st Contact Info) Description 05/10/2022 Procedure Pass [facility], Ct Scan - [address] [address] Social History Tobacco Use Types Packs/Day Years [...] 12:02 PM EDT Cheryl Bermudez, RN * [place] Suicide Severity Rating Scale (Screener/Recent Self-Report) Question [...] on filedocumented in this encounter Care Teams Circulation Clerk Relationship Specialty Start Date End Date Michael Melendez NP [address] [address] PCP - General Family Medicine 05/10/22 documented as of this encounter Additional Source Comments The information contained in this document represents components of the legal health record. It is not the complete legal health record.[facility]
--- OUTSIDE RECORDS SUMMARY | 2025-07-30 07:26 | XMS_ITS | Clinical Summary ---
Author Organization [facility] [address] [facility] Address [address] [place] [address] Phone Care Team Providers Care Telephone Service Representative Name Role Phone Michael Melendez NP Primary Care Provider Allergies Active Allergy Reactions Criticality Noted Date Comments Adhesive Rash 10/05/2024 Flomaton And Derivatives Other 10/05/2024 dysuria Codeine 09/03/2024 Diltiazem Hcl Swelling 08/18/2023 Other Reaction(s): retain fluid Ketorolac High 08/18/2023 Morphine 08/18/2023 Scopolamine 08/18/2023 hives Terconazole Swelling 08/18/2023 Tramadol Hives,Itching 08/18/2023 Medications Mounjaro 7.5 mg/0.5 mL injection 08/28/2024 Active [...] 1 (one) time each day. 01/11/2025 Active lansoprazole (PREVACID) [address] Gómez ns:Gastroesophag eal reflux disease without esophagitis TAKE 1 CAPSULE TWICE DAILY.DO NOT CRUSH OR CHEW. 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
[2025-07-30 08:20] LABS: Creatinine, mg/dL 127.52
[2025-07-30 08:43] LABS: Albumin Level 4.5 g/dL (3.5-5.0); Calcium 10.3 mg/dL (8.4-10.2); Estimated Glomerular Filt Rate > 60; Magnesium 1.9 mg/dL (1.6-2.6)
[2025-07-30 08:44] LABS: Parathyroid Hormone Intact 218.1 pg/mL (8.7-77.1)
[2025-07-30 09:43] LABS: Total Volume 24 Hour Urine 950 mL
[2025-07-31 11:49] LABS: Calcium, Ionized 5.7 mg/dL (4.7-5.5)
== END 2025-07-30 07:24 | disposition home or self-care (01) ==
LOC: HO.LAB 07:23
PROVIDERS: PCP Nurse Practitioner Family; Visit Provider Student in an Organized Health Care Education/Training Program
DX: E21.3 Hyperparathyroidism, unspecified (principal); Z13.21 Encounter for screening for nutritional disorder
CPT/HCPCS: 36415; 82040; 82306; 82310; 82330; 82340; 82565; 82570; 82652; 83735; 83970; 84100

== ENCOUNTER 2025-08-06 15:29 | Outpatient (AMB) | payer OTHER, SELFPAY ==
[2025-08-06 15:53] VITALS: BP 118/72; PULSE 75; RESP 16; O2SAT 97; BMI 32.1
--- NOTE | 2025-08-06 15:53 | A.OFFPC_ITS ---
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 Required: No Accompanied by: Self / Same As Patient Allergies tramadol (TRAMADOL) Allergy (Severe, Verified 08/06/25 16:29) ITCHING adhesive tape (ADHESIVE TAPE) Allergy (Intermediate, Verified 08/06/25 16:29) RASH codeine (Codeine) Allergy (Unknown, Verified 08/06/25 16:29) CHEST PAIN diltiazem (Cardizem) Allergy (Unknown, Verified 08/06/25 16:29) Unknown ketorolac (From TORADOL) Allergy (Unknown, Verified 08/06/25 16:29) ITCHING morphine Allergy (Unknown, Verified 08/06/25 16:29) aggitation Tobacco use date assessed: 08/06/25 Dental Screening Dental Screen Date: 08/06/25 Did you have a dental visit in the last 12 months?: Yes Did you have a dental problem in the last 6 months where you did not have access to dental care?: No Was dental information given to patient?: Patient has dentist HPI 6m follow up HPI Details Chief Complaint The patient presents for a generalized follow-up for diabetes and recent bilateral kidney pain. History of Present Illness The patient is a 55 year old female presenting for a generalized follow-up visit for diabetes management and recent bilateral kidney pain. Regarding her diabetes, her recent Hemoglobin A1c was 5.4%. She denies any neuropathy, fever, chills, or shortness of breath. The patient has a history of hydronephrosis and recently experienced bilateral kidney pain, which was more pronounced on the right side, along with right-sided suprapubic discomfort. She currently reports no discomfort in these areas. Social History Health Maintenance - The patient is due for an eye exam and will make her own appointment. - Patient declined a foot exam during th is visit. - The patient declined any vaccinations today. Review of Systems - Constitutional: Denies fever and chill s. - Respiratory: Denies shortness of breat h. - Genitourinary: Reports recent history of bilateral kidney pain, predominantly on the right, and right-sided suprapubic discomfort. She currently denies any discomfort in these regions. - Neurological: Denies neuropathy. Physical Exam General: Cooperative, healthy appearing, comfortable, no acute distress and well developed Orientation: Patient oriented x3 Limitations: No limitations Head: Normal to inspection Ears: Hearing grossly normal bilaterally Nose: Normal external nose present Face and sinus: Normal facial exam Eyes: Appearance normal, both eyes and all related structures Neck: Normal visual inspection and Yes full ROM Respiratory: Normal respiratory effort and able to speak in complete sentences. Clear to auscultation bilaterally Cardiovascular: Regular rate and rhythm. Normal S1 and S2 GI: Normal to inspection. Soft to palpation and nontender. No suprapubic tenderness noted with palpation, no cva tenderness. Skin: No rashes or lesions noted Neuro: Patient oriented x3 Extremities: Normal to inspection Results - Labs: Hemoglobin A1c is 5.4%. Plan 1. Diabetes Mellitus The patient's Hemoglobin A1c is well-controlled at 5.4%. She is due for an eye exam, which she will schedule herself. She declined a foot exam today. Fasting labs will be obtained in the near future. 2. Hydronephrosis And Suspected Nephroli thiasis The patient has a history of hydronephrosis and recently experienced bilateral kidney pain, prompting concern for an actively passing kidney stone. Urine studies and a CAT scan will be ordered to investigate further. A prophylactic antibiotic will be started to cover for a potential urinary tract infection. The patient was advised to seek immediate medical attention if she develops any fevers or chills. Discussion Notes I have discussed with the patient her recent history of bilateral kidney pain and suprapubic discomfort in the context of her known hydronephrosis. Due to suspicion for an actively passing kidney stone, I am ordering urine studies and a CAT scan. I will also start her on a prophylactic antibiotic that will cover a potential urinary tract infection. I have advised her to seek immediate medical attention for any fevers or chills. We reviewed her excellent diabetes control with an A1c of 5.4%. She is aware she is due for an eye exam and will schedule it herself. She has declined a foot exam and vaccinations at today's visit. Patient Instructions - You will be started on an antibiotic t o help prevent a urinary tract infection. - Please go for the urine tests and CAT scan that were ordered. - If you develop a fever or chills, plea se seek immediate medical attention. - You will need to get fasting lab work done soon. - Please remember to schedule your eye e xam. PFSH Medical History HLD (hyperlipidemia) Hypertension Transaminitis T2DM (type 2 diabetes mellitus) Concussion KIMMY positive Abnormal EKG HLD (hyperlipidemia) Right cervical radiculopathy Right shoulder tendonitis Surgical History History of suburethral sling procedure Hx of cardiac cath (~10/2017) History of hysterectomy Hx of cholecystectomy Family History Father CAD (coronary artery disease) PVD (peripheral vascular disease) HTN (hypertension) Hyperlipidemia Myocardial infarction Mother HTN (hypertension) CLL (chronic lymphocytic leukemia) Sister No problems noted. Son No problems noted. Social History Housing: House Alcohol intake: current Alcohol intake frequency: holidays/special occasions only Patient Tobacco Use Status: Never used Tobacco e-Cigarette/Vaping Use: Never Used Second Hand Smoke Exposure: No service: No Current occupational status: employed Current occupation: [employer] Current occupational exposures/hazards: Yes Cognitive needs: No Hearing needs: No Vision needs: No Questionnaire Thrive Questionnaire Date Thrive assessed: 01/31/25 I am a: Patient What is your living situation today?: I have a steady place to live Within the past 12 months, did the food you bought not last and you didn't have the money to get more?: Never true Within the past 12 months, did you worry whether your food would run out before you got money to buy more?: Never true Do you have trouble paying for medicines?: No Do you have trouble getting transportation to medical appointments?: No Do you have trouble paying your heating and electricity bill?: No Do you have trouble taking care of your child, family member or friend?: No Do you have trouble with day-to-day activities such as bathing, preparing meals, shopping, managing finances, etc.?: No Are you currently unemployed and looking for a job?: No Are you interested in more education?: No Please select the resources that you would like help with: None Currently or been in a relationship where the following occur: No concerns reported THRIVE Score: 0 JUDY-7 AMB Questionnaire JUDY-7 Date JUDY - 7 assessed: 01/31/25 Source: Developed by Drs. Coleman Manzo, Sofia Ruiz, Micheal Bhatia and colleagues, with an educational kelsy from [employer]. Physical exam (Primary Care) Vital Signs: Last Vital Signs Pulse 75 08/06/25 15:53 Resp 16 08/06/25 15:53 BP 118/72 08/06/25 15:53 Pulse Ox 97 08/06/25 15:53 Oxygen Delivery Method Room Air 08/06/25 15:53 BMI result Body Mass Index 32.1 Tobacco/Smoking Status: Tobacco use Status Tobacco use date assessed 08/06/25 08/06/25 15:56 Patient Tobacco Use Status Never used Tobacco 08/06/25 15:56 e-Cigarette/Vaping Use Never Used 08/06/25 15:56 Thrive Assessment: Date of Thrive Assessment Date Thrive assessed 01/31/25 08/06/25 15:56 Currently or been in a relationship where the following occur: No concerns reported Results AMB Hemoglobin A1c AMB Hemoglobin A1c 5.4 % Last Edit by Jeanie Piña MA on 08/06/25 16:34 Coding Level of Care Code Est Pt Level 3 (58267) Diagnoses Hydronephrosis N13.30 Dysuria R30.0 Diabetes E11.9 Flank pain, bilateral R10.A3 Assessment & Plan Assessment & Plan (1) Hydronephrosis: Comment: previous Code(s): N13.30 - Unspecified hydronephrosis Category: Medical (2) Dysuria: Code(s): R30.0 - Dysuria Category: Medical (3) Diabetes: Code(s): E11.9 - Type 2 diabetes mellitus without complications Category: Medical (4) Flank pain, bilateral: Code(s): R10.A3 - Flank pain, bilateral Category: Medical Plan . Orders: Orders CT abdomen pelvis wo IV con Today N13.30 - Unspecified hydronephrosis, R30.0 - Dysuria Complete Blood Count Auto Diff Today E11.9 - Type 2 diabetes mellitus without complications, R10.A3 - Flank pain, bilateral Comprehensive [place]. Panel Fast Today E11.9 - Type 2 diabetes mellitus without complications, R10.A3 - Flank pain, bilateral TSH reflex Free T4 Today E11.9 - Type 2 diabetes mellitus without complications, R10.A3 - Flank pain, bilateral UA CC w/rflx Micro + Cult Today E11.9 - Type 2 diabetes mellitus without complications, R10.A3 - Flank pain, bilateral Lipid Panel Today E11.9 - Type 2 diabetes mellitus without complications, R10.A3 - Flank pain, bilateral AMB Hemoglobin A1c Today E11.9 - Type 2 diabetes mellitus without comp lications, R73.03 - Prediabetes, Z13.9 - Encounter for screening, unspecified Medications: New cefuroxime axetil 500 mg PO BID 14 tabs 0RF 7 days Changed From dicyclomine 20 mg PO ONCE To dicyclomine 20 mg PO DAILY 30 tabs 0RF 30 days
--- OUTSIDE RECORDS SUMMARY | 2025-08-06 21:58 | XMS_ITS | Clinical Summary ---
Author Organization [facility] Address [address] [address] Phone Care Team Providers Care Passenger Car Inspector Name Role Phone Michael Melendze MORTAR CARRIER Primary Care Provider + Allergies Active Allergy [...] 20 mg by mouth daily. Active omega 5-jbc-dar-fish oil (FISH OIL) 300-1,[address] [...] EDT) SODIUM 138 133 - 146 mmol/L [facility] CHLORIDE 100 96 - 108 mmol/L [facility] POTASSIUM 3.5 3.3 - 5.1 mmol/L [facility] CO2 27 21 - 35 mmol/L [facility] BUN 18 6 - 19 mg/dL [facility] CREATININE 0.60 0.5 - 1.5 mg/dL [facility] GLUCOSE 116(H) 70 - 99 mg/dL [facility] CALCIUM 9.9 8.4 - 10.3 mg/dL [facility] EGFR 109 >59 mL/min/1.7 3m2 [facility] Comment:Estimated glomerular filtration rate calculated using the CKD-EPI refit equation. ANION GAP 15 10 - 20 mmol/L [facility] Blood 05/10/2022 12:1 5 PM EDT 05/10/2022 12:26 PM EDT us Matthieu Manuel MD LAB BLOOD BKR ORDERABLES F inal Result Performing Organization Address City/State/[facility] Co de Phone Number [facility] [address] [place] [address] from Last 3 Months or Most Recently Relevant to Health Maintenance Insurance [employer] [facility] Publicate CHOICE [employer] [facility] Publicate CHOICE [facility]ICE [facility] CHOICE [facility] CHOICE CHOICE CHOICE Care Teams Passenger Car Inspector Relationship Specialty Start Date End Date Michael Melendez NP [address] [address] PCP - General Family Medicine 05/10/22 Additional Source Comments The information contained in this document represents components of the legal health record. It is not the complete legal health record.[facility]
--- OUTSIDE RECORDS SUMMARY | 2025-08-06 21:58 | XMS_ITS | Encounter Summary ---
Author Organization [facility] Address [address] [place] [id number] Phone Care Team Providers Care Institutional Cook Name Role Phone Michael Melendez STITCH BONDING MACHINE OPERATOR Primary Care Provider + Encounter Details Date Type Department Care Team (Late st Contact Info) Description 05/10/2022 Procedure Pass [facility], Ct Scan - [address] [address] Social History Tobacco Use Types Packs/Day Years [...] 12:02 PM EDT Cheryl Bermudez, RN * [place] Suicide Severity Rating Scale (Screener/Recent Self-Report) Question Answer Date of Assessment Author 1. Wish to be (Past 1 Month) No 022 12:02 PM EDT Cheryl Bremudez, RN 2. Non-Specific Active Suici lia Thoughts (Past 1 Month) No 05/10/2022 12:02 PM EDT Cheryl Bermudez, RN 6. Suicidal Behavior (Lifetime) No 2 12:02 PM EDT Cheryl Bermudez RN documented as of this encounter Plan of Treatment Not on file documented as of this encounter Visit Diagnoses Not on filedocumented in this encounter Care Teams Institutional Cook Relationship Specialty Start Date End Date Michael Melendez NP [address] [facility] [place] [address] PCP - General Family Medicine 05/10/22 documented as of this encounter Additional Source Comments The information contained in this document represents components of the legal health record. It is not the complete legal health record.[facility]
--- OUTSIDE RECORDS SUMMARY | 2025-08-06 21:58 | XMS_ITS | Clinical Summary ---
Author Organization 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
== END 2025-08-06 16:45 | disposition home or self-care (01) ==
LOC: HO.HMCC 15:30
PROVIDERS: PCP Nurse Practitioner Family; Visit Provider Nurse Practitioner Family
DX: N13.30 Unspecified hydronephrosis (principal); R30.0 Dysuria; E11.9 Type 2 diabetes mellitus without complications; R10.A3 Flank pain, bilateral; Z13.9 Encounter for screening, unspecified; R73.03 Prediabetes

== ENCOUNTER → 2025-08-06 15:29 | Outpatient (BNVA) | payer OTHER, SELFPAY | PROVIDERS: PCP Nurse Practitioner Family; Visit Provider Nurse Practitioner Family | DX: E11.9 Type 2 diabetes mellitus without complications (principal); R10.A3 Flank pain, bilateral; R30.0 Dysuria | CPT/HCPCS: 83036 ==

== ENCOUNTER 2025-08-11 10:20 | Outpatient (REF) | payer OTHER, SELFPAY ==
--- OUTSIDE RECORDS SUMMARY | 2025-08-11 10:22 | XMS_ITS | Clinical Summary ---
Author Organization [facility] Address [address] [address] Phone Care Team Providers Care Coin Machine Collector Supervisor Name Role Phone Michael Melendez TOOL AND DIE ENGINEER Primary Care Provider + Allergies Active [...] 20 mg by mouth daily. Active omega 8-gwz-nlm-fish oil (FISH OIL) 300-1,[address] [...] EDT) SODIUM 138 133 - 146 mmol/L [facility] CHLORIDE 100 96 - 108 mmol/L [facility] POTASSIUM 3.5 3.3 - 5.1 mmol/L [facility] CO2 27 21 - 35 mmol/L [facility] BUN 18 6 - 19 mg/dL [facility] CREATININE 0.60 0.5 - 1.5 mg/dL [facility] GLUCOSE 116(H) 70 - 99 mg/dL [facility] CALCIUM 9.9 8.4 - 10.3 mg/dL [facility] EGFR 109 >59 mL/min/1.7 3m2 [facility] Comment:Estimated glomerular filtration rate calculated using the CKD-EPI refit equation. ANION GAP 15 10 - 20 mmol/L [facility] Blood 05/10/2022 12:1 5 PM EDT 05/10/2022 12:26 PM EDT us Matthieu Manuel MD LAB BLOOD BKR ORDERABLES F inal Result Performing Organization Address City/State/[facility] Co de Phone Number [facility] [address] [place] [address] from Last 3 Months or Most Recently Relevant to Health Maintenance Insurance [employer] [facility] Callision CHOICE [employer] [facility] [employer] CHO[facility] CHOICE CHOICE CHOICE Care Teams Coin Machine Collector Supervisor Relationship Specialty Start Date End Date Michael Melendez NP [address] [facility] [place] [address] PCP - General Family Medicine 05/10/22 Additional Source Comments The information contained in this document represents components of the legal health record. It is not the complete legal health record.[facility]
--- OUTSIDE RECORDS SUMMARY | 2025-08-11 10:22 | XMS_ITS | Encounter Summary ---
Author Organization [facility] Address [address] [address] Phone Care Team Providers Care Senior Water Resources Engineer Name Role Phone Michael Melendez MANAGER HOME Primary Care Provider + Encounter Details Date Type Department Care Team (Late st Contact Info) Description 05/10/2022 Procedure Pass [facility], Ct Scan - [address] [address] Social History Tobacco Use Types Packs/Day Years [...] PM EDT documented as of this encounter Plan of Treatment Not on file documented as of this encounter Visit Diagnoses Not on filedocumented in this encounter Care Teams Senior Water Resources Engineer Relationship Specialty Start Date End Date Michael Melendez NP [address] [place] [address] PCP - General Family Medicine 05/10/22 documented as of this encounter Additional Source Comments The information contained in this document represents components of the legal health record. It is not the complete legal health record.[facility]
--- OUTSIDE RECORDS SUMMARY | 2025-08-11 10:22 | XMS_ITS | Clinical Summary ---
Author Organization 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
[2025-08-11 10:38] LABS: MANUAL DIFF FLAG NO
[2025-08-11 10:59] LABS: Hematocrit 47.0 % (37.0-47.0); Hemoglobin 15.8 g/dl (12.0-16.0); Imm Gran Abs Auto 0.01 X10*3/uL (0.00-0.03); Imm Gran Pct Auto 0.1 % (0.0-0.4); Lymphocytes Absolute Auto 3.5 X10*3/uL (1.2-4.9); Mean Corpuscular HGB Conc 33.6 g/dl (31.0-35.0); Mean Corpuscular Hemoglobin 29.9 pg (27.0-33.0); Mean Corpuscular Volume 88.8 fL (80.0-98.0); NRBC Abs Auto 0.000 X10*3/uL (0.0-0.012); NRBC Pct Auto 0.0 /100WBC (0.0-0.2); Platelet Count 357 X10*3/uL (160-400); Red Blood Count 5.29 X10*6/uL (4.20-5.50); White Blood Count 7.9 X10*3/uL (4.8-10.8)
[2025-08-11 11:21] LABS: Appearance Urine Cloudy; Glucose Urine UA Negative (Negative); PH 7.5 (5.0-9.0); Specific Gravity - Urine >= 1.030 (1.005-1.025)
[2025-08-11 11:26] LABS: Alanine Aminotransferase 71 U/L (0-31); Albumin Level 4.7 g/dL (3.5-5.0); Alkaline Phosphatase 91 U/L (39-117); Anion Gap 14 (12-20); Aspartate Amino Transferase 42 U/L (5-31); Blood Urea Nitrogen 22 mg/dL (9-16); Calcium 10.6 mg/dL (8.4-10.2); Carbon Dioxide 30 mmol/L (22-29); Chloride 101 mmol/L (96-108); Cholesterol 178 mg/dL (<200); Estimated Glomerular Filt Rate > 60; HDL Cholesterol 59 mg/dL (>40); Potassium 3.5 mmol/L (3.3-5.1); Sodium 141 mmol/L (135-145); Total Protein 7.2 g/dL (6.5-8.0); Triglycerides 123 mg/dL (<150)
== END 2025-08-11 10:21 | disposition home or self-care (01) ==
LOC: HO.LAB 10:20
PROVIDERS: PCP Nurse Practitioner Family; Visit Provider Nurse Practitioner Family
DX: E11.9 Type 2 diabetes mellitus without complications (principal); R10.A3 Flank pain, bilateral
CPT/HCPCS: 36415; 80053; 80061; 81003; 84443; 85025